=== PATIENT | female | born 2000 | race Hispanic/Latino ===

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

== ENCOUNTER 2020-09-10 09:00 | Emergency (ER) | payer OTHER ==
--- OUTSIDE RECORDS SUMMARY | 2020-09-10 09:02 | XMS REPORT | Summary of Care ---
:2000 Author Organization [facility] Address [address] [place] [address] Care Team Providers Name Role Phone Umm Faith Primary Care Provider Encounter Details Date Type Department Care Team Description 06/12/2020 Orders Only [facility] Doctor Unassigned, No [address] [facility] [place] [address] [address] [place] [address] Allergies No Known Allergiesdocumented as of this encounter (statuses as of 06/12/2020) Medications Medication Sig Dispensed Refills Start Date End Date Status Take by mouth. 0 Acti ve vits62/FA/om3/dha/epa ( GUMMY ORAL) SERTraline (ZOLOFT) 25 Take 1 tablet by 30 tablet 1 04/24/2020 Active mg tabletIndications: mouth daily. 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 Estimated Date of Delivery Comments Yes 07/05/2020 Based on Ultrasound, FHT: 186, Placenta too early to evaluate, MARIELA: WN L documented as of this encounter (statuses as of 06/12/2020) Resolved Problems Problem Noted Date Resolved Date Gonorrhea affecting in first trimester 11/26/2019 02/14/2020 documented as of this encounter (statuses as of 06/12/2020) Immunizations Name Administration Dates Next Due DTAP 04/29/2004 MMR 04/29/2004 Polio (IPV/OPV) 04/29/2004 TDAP 04/24/2020 documented as of this encounter Social History [...] six or more drinks on one occasion? No t asked Estimated Date of Delivery Comments Yes 07/05/2020 Based on Ultrasound, FHT: 186, Placenta too early to evaluate, MARIELA: WN L Sex Assigned at Date Recorded Not on file COVID-19 Exposure Response Date Recorded In the last month, have you been in contact with No / Unsure 06/12/2020 4:36 PM CDT someone who was confirmed or suspected to have Coronavirus / COVID-19? documented as of this encounter Last Filed Vital Signs Not on filedocumented in this encounter Plan of Treatment Health Maintenance Due Date Last Done Comments WELL CARE VISIT: 12-21 YEARS 2012 (yearly) INFLUENZA VACCINE (#1) 2020 HPV VACCINES (1 - 2-dose 11/09/2020 Postpon ed from 2011 series) ( or ) MENINGOCOCCAL B VACCINES (1 11/18/2020 Post poned from 2010 of 2 - Risk Bexsero 2-dose (Preg nant or series) ) VARICELLA VACCINES (1 of 2 - 11/19/2020 Pos tponed from 2001 2-dose childhood series) (Pregna nt or ) Depression Screening 11/26/2020 11/26/2019 CHLAMYDIA SCREENING 12/16/2020 12/17/2019, 11/19/2019 DTaP,Tdap,and Td Vaccines (3 04/24/2030 04/24/2020, - Td) 04/29/2004 MENINGOCOCCAL VACCINE Aged Out No longer eligible based on patient's age to complete this to pic PNEUMOCOCCAL 0-64 YEARS Aged Out No longe r eligible based COMBINED SERIES on patient's age to complete this to pic documented as of this encounter Procedures Procedure Name Priority Date/Time Associated Diagnosis Comme nts ASSIGNMENT OF BENEFITS Routine 06/12/2020 4:37 PM CDT documented in this encounter Results Not on filedocumented in this encounter Insurance Payer Benefit Plan / Subscriber ID Effective Phone Address T e Group Dates [facility] [id number] 2020-Prese [address] Medic aid [facility] [place] [id number] 1 MANAGED MEDICAID [place], [place] [id number] documented as of this encounter Advance Directives Name Relationship Healthcare Agent Communication Relationship Sabrina Pack Health Care Agent
--- OUTSIDE RECORDS SUMMARY | 2020-09-10 09:02 | XMS REPORT | Summary of Care ---
:2000 Author Organization [facility] Address [address] [place] [address] Care Team Providers Name Role Phone Umm Faith Primary Care Provider Reason for Visit Reason Comments LAB WORK Auth/Cert Status Reason Specialty Diagnoses / Procedures Referred By Yen grant To Contact Contact Phlebotomy Diagnoses High-risk in third trimester [facility] Pob Lab Dra lau Procedures GROUP B STREPTOCOCCUS BY PCR Professional Office [address] , [address] [place] [address] Fax: Encounter Details Date Type Department Care Team Description 06/12/2020 Repairer Evaporator Visit [facility] Malgorzata Sorto PA-C [address] [place] [address] [address] [place] [address] High-risk Professional Office 2, [facility] Lab in third trimester Building Phlebotomy Lab Professional Office [address] , [address] [place] [address] Allergies No Known Allergiesdocumented as of this [...] Signs Not on filedocumented in this encounter Nursing Notes Yola Barrett - 06/12/2020 4:15 PM CDT Venipuncture collection performed by clean technique on the right anticubitus. Total of 1 attempts were made. Slight pressure and a bandage/dressing were applied to the site(s). The patient experiencedno complications. The following specimens were processed according to instructions and sent to [facility] laboratories per lab order on : LT BLUE SST RED 1 LAV PPT DK GREEN (LiHep) DK GREEN (SodH) QUEEN DK BLUE (K2) DK BLUE (S) ACD Blood Culture NIPT/NTD documented in this encounter Plan of Treatment Name Type Priority Associated Diagnoses Date/Ti me CBC WITH DIFF LAB Routine High-risk in thir d 06/12/2020 4:50 PM CDT trimester Health Maintenance Due Date Last Done [...] to pic documented as of this encounter Results Not on filedocumented in this encounter Visit Diagnoses Diagnosis High-risk in third trimester documented in this encounter Insurance Payer Benefit Plan / Subscriber ID Effective Phone Address T [facility] [id number] 2020-Prese [address] Medic aid HEALTH CHOICE - HEALTH CHO[place] nt [id number] 1 MANAGED MEDICAID [place], [place] [id number] documented as of this encounter Advance Directives Name Relationship Healthcare Agent Communication Relationship Sabrina Brooke [facility] Health Care Agent
--- OUTSIDE RECORDS SUMMARY | 2020-09-10 09:02 | XMS REPORT | Continuity of Care Document ---
:2000 Author Organization [facility] t Address [address] [place] [address] Care Team Providers Name Role Phone Malgorzata Sorto PA-C Attending Clinician Armida Fuentes MD Attending Clinician Doctor Unassigned, Name Attending Clinician Unavailable 2, Lab Attending Clinician Unavailable Nurse, Women's Health Attending Clinician Unavailable Alfredo GANDHI, Corby Admitting Clinician Problems This patient has no known problems. Allergies, Adverse Reactions, Alerts This patient has no known allergies or adverse reactions. Medications This patient has no known medications. Procedures This patient has no known procedures. Encounters Start End Encounter Admission Attending Care Care Encounter Source Date/Time Date/Time Type Type Clinicians Facility Department ID 2020-09-03 2020-09-03 ALEJANDRA Butler [id number] 10:57:58 11:27:58 ne Visit Malgorzata Dunn [id number] [place] [id number] Lien [phone] [address] 2020-09-01 2020-09-01 Telephone Armida Fuentes NDGRACE [id number] 00:00:00 00:00:00 Corby Dunn [id number] [place] [id number] Lien [phone] [address] 2020-08-17 2020-08-17 TelemALEJANDRA Ward [id number] 15:30:31 16:00:31 ne Visit Malgorzata [place] [id number] [place] [id number] Professio [phone] [address] 2020-07-20 2020-07-20 Routine Macario [facility] [id number] 16:27:25 16:42:25 Malgorzata [place] [id number] Visit [place] [id number] Professio [id number] [address] 2020-07-20 2020-07-20 Orders Doctor ELANA [id number] 00:00:00 00:00:00 Only Unassigned, SHELLI [id number] [facility] [id number] [id number] [id number] 2020-06-24 2020-06-24 Insurance Associate 2, Adc Lab [facility] [id number] 15:57:14 16:12:14 Visit [place] [id number] [place] [id number] Professio [phone] [address] 2020-06-24 2020-06-24 [facility] 1.2.840.114 [id number] 00:00:00 00:00:00 Malgorzata Mona [id number] [place] [id number] Professio [id number] [address] 2020-06-24 2020-06-24 Armida Church [facility] [id number] 00:00:00 00:00:00 Management Cam Mona [id number] [place] [id number] Professio [phone] [address] 2020-06-24 2020-06-24 Orders Doctor ELANA [id number] 00:00:00 00:00:00 Only Unassigned, SHELLI [id number] [facility] 4.2.7.2.686 [id number] [id number] 2020-06-23 2020-06-23 Nurse Nurse, Adc [facility] 1.2.840.114 [id number] 15:02:55 16:16:06 Visit Women's [place] [id number] Health [place] 4.2.7.2.686 Professio [phone] [address] 2020-06-15 2020-06-17 Hospital Armida Fuentes [facility] 1.2.840.114 [id number] 15:16:00 20:45:00 Encounter Cam [place] [id number] [place] 4.2.7.2.686 [place] [id number] 2020-06-15 2020-06-15 Routine Armida Fuentes [facility] [id number] 13:22:52 14:38:56 Cam Mona [id number] Visit [place] [id number] Professio [phone] [address] 2020-06-15 2020-06-15 Insurance Associate 2, [facility] Lab [facility] 1.2.840.114 [id number] 12:10:07 12:25:07 Visit Mona [id number] [place] 4.2.7.2.686 Professio [phone] [address] 2020-06-12 2020-06-12 [facility] [id number] 16:26:50 17:41:09 Malgorzata Dunn [id number] Visit [place] [id number] Professio [phone] [address] 2020-06-12 2020-06-12 Insurance Associate 2, [facility] Lab [facility] [id number] 16:37:37 16:52:37 Visit [place] [id number] [place] 4.2.7.2.686 Professio [phone] [address] 2020-06-12 2020-06-12 Orders Doctor ELANA 1.2.840.114 [id number] 00:00:00 00:00:00 Only Unassigned, SHELLI [id number] [place] [facility] 4.2.7.2.686 [id number] [id number] 2020-05-22 2020-05-28 Telemedici Armida Fuentes [facility] [id number] 14:55:48 13:46:17 ne Visit Corby Dunn [id number] [place] 4.2.7.2.686 Professberenice [phone] [facility] [address] [facility] Results This patient has no known results.
--- OUTSIDE RECORDS SUMMARY | 2020-09-10 09:03 | XMS REPORT | Summary of Care ---
:2000 Author Organization [facility] Address [address] [place] [address] Care Team Providers Name Role Phone Umm Faith Primary Care Provider Reason for Visit Reason Comments ROUTINE VISIT Auth/Cert Status Reason Specialty Diagnoses / Procedures Referred By Molly ontact Referred To Contact Phlebotomy Diagnoses High-risk in third trimester - Primary [facility] Pob Lab Draw Procedures hepatic function Professional Office [address], [address] [place] [address] Phone: Fax: Encounter Details Date Type Department Care Team Description 06/15/2020 Routine [facility] Women's FuentesArmida am, MD High-risk in third trimester ( Primary Dx); Visit Healthcare- [address] [place] [address] 37 weeks g estation of ; Mona CALLAHAN Gestational hypertension, third trimeste r [address] [place] [address], [address] [place] [address] Allergies No Known Allergiesdocumented as of this encounter (statuses as of 06/15/2020) Medications Medication Sig Dispensed Refills Start Date End Date Status Take by mouth. 0 Susp ended vits62/FA/om3/dha/epa ( GUMMY ORAL) SERTraline (ZOLOFT) Take 1 tablet by 30 tablet 1 04/24/2020 Suspended 25 mg mouth daily. 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 Estimated Date of Delivery Comments Yes 07/05/2020 Based on Ultrasound, FHT: 186, Placenta too early to evaluate, MARIELA: WN L documented as of this encounter (statuses as of 06/15/2020) Resolved Problems Problem Noted Date Resolved Date Rash and nonspecific skin eruption 02/26/202006/15 Gonorrhea affecting in first trimester 11/26/2019 02/14/2020 documented as of this encounter (statuses as of 06/15/2020) Immunizations Name Administration Dates Next Due DTAP [...] been in contact with No / Unsure 06/15/2020 1:22 PM CDT someone who was confirmed or suspected to have Coronavirus / COVID-19? documented as of this encounter Last Filed Vital Signs Vital Sign Reading Time Taken Comments Blood Pressure 162/98 06/15/2020 2:11 PM CDT Pulse 85 06/15/2020 2:10 PM CDT Temperature 36.8 C (98.3 F) 06/15/2020 2:10 PM CDT Respiratory Rate 18 06/15/2020 2:10 PM CDT Oxygen Saturation - - Inhaled Oxygen Concentration - - Weight 72.6 kg (160 lb) 06/15/2020 2:10 PM CDT Height 157.5 cm (5' 2") 06/15/2020 2:10 PM CDT Body Mass Index 29.26 06/15/2020 2:10 PM CDT documented in this encounter Progress Notes Armida Fuentes MD - 06/15/2020 1:00 PM CDTSee OB Summary for more details documented in this encounter Miscellaneous Notes OB Summary Note - Armida Fuentes MD - 06/15/2020 1:00 PM CDTAge: 20 year old GA: 37w1d Elevated BP again today, mild range and on repeat severe range. Denies PIH symptoms. To L&D for delivery. documented in this encounter Plan of Treatment Date Type Specialty Care Team Description 06/23/2020 Nurse Visit Obstetrics & Nurse, [facility] Women's Gynecology Health 07/13/2020 Routine Obstetrics & Malgorzata Sorto, Visit Gynecology KENZIE [address] [place] [address] Health Maintenance Due Date Last Done Comments [...] Name Priority Date/Time Associated Diagnosis Comme nts POCT URINALYSIS W/O Routine 06/15/2020 High-risk i n Results for this SPECIFIC GRAVITY third trimester procedure are in the 37 weeks gestation of result s section. documented in this encounter Results POCT URINALYSIS W/O SPECIFIC GRAVITY (06/15/2020) Pathologist Sig nature POCT PH U n/a 5 - 8 mg/dl POCT U LEUK EST n/a Negative - Negative POCT U NIT n/a Negative - Negative POCT U PROT trace Negative - Negative POCT U GLU neg Negative - Negative POCT U KETONE n/a Negative - Negative POCT U BLD n/a Negative - Negative Specimen Urine - URINE, CLEAN CATCH documented in this encounter Visit Diagnoses Diagnosis High-risk in third trimester - Primary 37 weeks gestation of state, incidental Gestational hypertension, third trimeste r documented in this encounter Insurance Payer Benefit Plan / Subscriber ID Effective Phone Address T [facility] [id number] 2020-Prese [address]OX Medic aid HEALTH CHOICE - HEALTH CHOICE nt [id number] 1 MANAGED MEDICAID [place], [place] [id number] documented as of this encounter Advance Directives Name Relationship Healthcare Agent Communication Relationship Sabrina Brooke Father Health Care Agent
--- OUTSIDE RECORDS SUMMARY | 2020-09-10 09:03 | XMS REPORT | Summary of Care ---
:2000 Author Organization [facility] Address [address] [place] [address] Care Team Providers Name Role Phone Umm Faith Primary Care Provider Reason for Visit Reason Comments LAB WORK Auth/Cert Status Reason Specialty Diagnoses / Procedures Referred By Molly ontact Referred To Contact Phlebotomy Diagnoses High-risk in third trimester - Primary [facility] Pob Lab Draw Procedures hepatic function Professional Office Building [address] [place] [address] , [address] [place] [address] Phone: Fax: Encounter Details Date Type Department Care Team Description 06/15/2020 It Support Manager Visit [facility] Malgorzata Sorto PA-C [address] [place] [address] [address] [place] [address] High-risk in third trimester; Professional Office 2, [facility] Lab 36 weeks gestation of Building Phlebotomy Lab Professional Office Building [address] [place] [address] , [address] [place] [address] Allergies No Known Allergiesdocumented as [...] of 06/15/2020) Active Problems Problem Noted Date Depression during [...] in contact with No / Unsure 06/15/2020 12:09 PM CDT someone who was confirmed or suspected to have Coronavirus / COVID-19? documented as of this encounter Last Filed Vital Signs Not on filedocumented in this encounter Nursing Notes Yola Barrett - 06/15/2020 11:45 AM CDT Venipuncture collection performed by clean technique on the right anticubitus. Total of 1 attempts were made. Slight pressure and a bandage/dressing were applied to the site(s). The patient experiencedno complications. The following specimens were processed according to instructions and sent to [facility] laboratories per lab order on : LT BLUE 1 SST RED LAV PPT DK GREEN (LiHep) DK GREEN (SodH) QUEEN DK BLUE (K2) DK BLUE (S) ACD Blood Culture NIPT/NTD documented in this encounter Plan of Treatment Date Type Specialty Care Team Description 06/15/2020 Routine Obstetrics & Fuentes, Armida Tavarez MD Visit Gynecology [address] [place] [address] DR. Aguirre [place] [id number] 15 Health Maintenance Due Date Last Done Comments [...] Visit Diagnoses Diagnosis High-risk in third trimester 36 weeks gestation of state, incidental documented in this encounter Insurance Payer Benefit Plan / Subscriber ID Effective Phone Address T [facility] [id number] 2020-Prese [address] BOX Medic aid HEALTH CHOICE - HEALTH CHOICE nt [id number] 1 MANAGED MEDICAID [place] [phone] documented as of this encounter Advance Directives Name Relationship Healthcare Agent Communication Relationship Sabrina Brooke Father Health Care Agent
--- OUTSIDE RECORDS SUMMARY | 2020-09-10 09:03 | XMS REPORT | Summary of Care ---
:2000 Author Organization [facility] Address [address] [place] [id number] Care Team Providers Name Role Phone Umm Faith Primary Care Provider Reason for Visit Reason Comments ROUTINE VISIT Auth/Cert Status Reason Specialty Diagnoses / Procedures Referred By Yen naiduerred To Contact Contact Phlebotomy Diagnoses High-risk in third trimester Adc Pob Lab Dra lau Procedures GROUP B STREPTOCOCCUS BY PCR Professional Office [address] , [address] [place] [address] Fax: Encounter Details Date Type Department Care Team Description 06/12/2020 Routine [facility] Women's Malgorzata Sorto, High-risk in third trimester (Primary Dx); Visit Healthcare- PA-C 36 weeks gestation of [address], [address] [facility] [address] [place] [id number] Allergies No Known Allergiesdocumented as of [...] in contact with No / Unsure 06/12/2020 5:12 PM CDT someone who was confirmed or suspected to have Coronavirus / COVID-19? documented as of this encounter Last Filed Vital Signs Vital Sign Reading Time Taken Comments Blood Pressure 146/91 06/12/2020 5:32 PM CDT Pulse 86 06/12/2020 5:32 PM CDT Temperature 36.8 C (98.3 F) 06/12/2020 5:13 PM CDT Respiratory Rate 16 06/12/2020 5:13 PM CDT Oxygen Saturation - - Inhaled Oxygen Concentration - - Weight 72.1 kg (159 lb) 06/12/2020 5:13 PM CDT Height 157.5 cm (5' 2") 06/12/2020 5:13 PM CDT Body Mass Index 29.08 06/12/2020 5:13 PM CDT documented in this encounter Patient Instructions Patient InstructionsHeike De La Torre, MA - 06/12/2020 4:30 PM CDT Patient Education Kick Counts Its normal to worry about your babys health. One way you can knowyour babys doing well isto record the babys movements once a day. This is called a kick count.Remember to take your kick count records to all your appointments with your healthcare provider. How to count kicks Time how long it takes you to feel 10 kicks, flutters, swishes, or rolls. Ideally, you want to feel at least 10 movements within 2 hours. You will likely feel 10 movements in less time than that. Starting at 28 weeks, count your baby's movements daily. Follow your healthcare provider's instructions for kick counting. Here are tips for counting kicks: Choose a time when the baby is active, such as after a meal. Sit comfortably or lie on your side. The first time the baby moves,write downthe time. Count each movement until the baby has [id number]. This can take from 20 minutes to 2hours. If you have not felt 10 kicks by the end of the second hour, wait a few hours. Then try again. Try to do it at the same time each day. When to call your healthcare provider Call your healthcare providerright awayif: You do a couple sets of kick counts during the day and your baby moves fewer than 10times [id number] Your baby moves much less often than on thedays before. You have not felt your baby move all day. [employer] last reviewed this educational content on 09/15/201719994375-0458 The [employer]. [address] [place] [address], [place] [address]. All rights reserved. This information is not intended as a substitute for professional medical care. Always follow your healthcare professional's instructions. Patient Education Recognizing Labor The beginning of labor is the beginning of . Youll start to feel strong contractions. Thats when the muscles of your uterus tighten up to help push your baby out during . Yes, labor has probably started Signs of labor include: Your contractions are getting stronger and more painful instead of weaker. Youll probably feelthem throughout your whole uterus. Your contractions are regular. This means that you feel them about every 5 to 10 minutes. And they are getting closer together. You have pink-colored or blood-streaked fluid from your vagina. You feel that the baby has "dropped" lower in your pelvis Your water breaks. It may be a gush or a slow trickle of clear fluid from your vagina. No, its probably not real labor Signs of false labor include: Your contractions arent regular or strong. You feel the contractions only in your lower uterus. Your contractions go away when you walk or change position. Your contractions go away after drinking fluids. When to call your healthcare provider Call your healthcare provider or clinic right away if you notice any of these signs: Fluid from your vagina, with or without contractions. Bleeding heavy enough that you need a sanitary pad. You dont feel your baby moving as much as before. NOTE: Contractions are timed by both of these measures: The length of each contraction from its start to its finish. How far apart the contractions arethe time between the start of one contraction and the start of the next contraction. [employer] last reviewed this educational content on 07/16/201719993484-6256 The [employer]. [address] [place] [address]. All rights reserved. This information is not intended as a substitute for professional medical care. Always follow your healthcare professional's instructions. Patient Education False Labor If your is at 37 weeks or longer and you are having contractions that are not true labor, you are having false labor. This means that it is not time yet to give to your baby. True labor contractions can start unevenly but soon take on a regular pattern. As time goes on, the contractions will get stronger. Also, the intervals between the contractions will get shorter. Even at the onset, these contractions last at least 30 seconds and may increase to a minute.True labor contractions often start in the back and then move to the front. False labor contractions can be strong, frequent, and painful, but there is no regular pattern. The intensity can vary from strong to mild to strong again.False labor contractions are most often feltin the front.While true labor contractions dont stop no matter what you are doing, false labor c ontractions may stop on their ownor when you rest or move around. False labor contractions might make you feel anxious or lose sleep. However, they dont mean that you are sick or that anything is wrong with your baby. You dont need to take any medicine for false labor. Sometimes, it may be too hard to tell false labor from true labor. In such cases, you may need to have a vaginal exam. This allows your healthcare provider to check for changes in the cervix that only occur with true labor. Home care It may help to drink plenty of water and take warm baths. Do what you can ahead of time to prepare for giving so youll have less to worry about later. Keep a record of your contractions. Write down what time each one starts and how long it lasts. Astopwatch is helpful. Look for the pattern of regularly spaced out contractions with a gradual increase in the time each one lasts. Dont be embarrassed about going to the hospital with a false alarm. Think of it as good practice for the real thing. Follow-up care Follow up with your healthcare provider, or as advised. If you are very worried, confused, cant eat or sleep, or have questions about your health or ,schedule an appointment with your provider. When to seek medical advice Call your healthcare provider right away if any of these occur: You are fewer than 37 weeks along in your and youre having contractions. You have contractions that are regular, getting longer, stronger, and closer together. Your water breaks. You have vaginal bleeding. You feel a decrease in your babys movement or any other unusual changes. Youre not sure if you are having false or true labor. [employer] last reviewed this educational content on 03/16/201819990677-2295 The [employer]. [address] [place] [address], [place] [address]. All rights reserved. This information is not intended as a substitute for professional medical care. Always follow your healthcare professional's instructions. Patient Education Premature Labor Premature labor ( labor) is when symptoms of labor occur before 37 weeks of . (This is 3 weeks before your due date.) Premature labor can lead to premature delivery. This means giving to your baby early. Babies need at least 37 weeks of for all the organs to develop normally. The earlier the delivery, the greater the risks to the baby. In most cases, the cause of premature labor is unknown. But certain factors may make the problem more likely. These include: History of premature labor with other pregnancies Smoking Alcohol or substance abuse Low pre- weight or weight gain during Short time period between pregnancies Being with twins, triplets, or more History of certain types of surgery on the cervix or uterus Having a short cervix Certain infections There are a number of other risk factors. Ask your healthcare provider to help you understand the risk factors specific to your case. Then find out what you can do to control or reduce them. Contractions are one of the main signs of premature labor. A contraction is different from cramping.It may feel painful and the belly (abdomen) may get hard. It can last from a few seconds to a few minutes. Some women may feel only a sense of pressure in the belly, thighs, rectum, or vagina. Some mayfeel only the hardening of the uterus without pain or pressure. Or there may be a constant pain in the lower back, which spreads forward toward the belly.Premature labor is often treated with medicines.A hospital stay may be needed. If labor doesn't progress and you and your baby are both healthy, you may be discharged to continue care at home. Home care Ask your provider any questions you have. Be certain you understand how to care for yourself at home. Also follow all recommendations given by your healthcare providers. Learn the signs of premature labor.Watch for these signs when you get home. Limit or restrict activities as advised. This may include stopping certain physical activities and cutting back hours at work. Avoid doing strenuous work as directed by your provider.Ask family and friends for help with tasks and support at home, if needed. Dont smoke, drink alcohol, or use other harmful substances. Take steps to reduce stress. Report any unusual symptoms to your provider. Follow-up care Follow up with your healthcare provider, or as directed.Weekly visits with your provider may be needed. When to seek medical advice Call your healthcare provider right away if any of these occur: Regular or frequent contractions, whether they are painful or not Pressure in the pelvis Pressure in the lower belly or mild cramping in your belly with or without diarrhea Constant low, dull backache Gush or slow leaking of water from your vagina Change in vaginal discharge (watery, mucus, or bloody) Any vaginal bleeding Decreased movement of your baby [employer] last reviewed this educational content on 03/16/201819996188-0302 The [employer]. [address] [place] [address], [place] [address]. All rights reserved. This information is not intended as a substitute for professional medical care. Always follow your healthcare professional's instructions. documented in this encounter Progress Notes Malgorzata Sorto PA-C - 06/12/2020 4:30 PM CDT Chief complaint: Chief Complaint Patient presents with ROUTINE VISIT HPI Renita Brooke is a 20 year old female @ 36w5d coming in for PN visit. Denies contractions,vaginal bleeding, LOF, dysuria, or PIH symptoms. + active FM. Histories OB History Para Term AB Living 1 SAB TAB Ectopic Multiple Live Births # Outcome Date GA Lbr Kris/2nd Weight Sex Delivery Anes PTL Lv 1 Current Past Medical History: Diagnosis Date Depression during in third trimester 05/22/2020 Gonorrhea affecting in first trimester 11/26/2019 Family History Problem Relation Age of Onset [...] PGMo Alive PGFa Alive NoFHx (Not Specified) No past surgical history on file. Social History Socioeconomic History Marital status: Single Spouse name: Not on file Number of children: Not on file Years of education: Not on file Highest education level: Not on file Occupational History Not on file Social Needs Financial resource strain: Not on file Food insecurity Worry: Not on file Inability: Not on file Transportation needs Medical: Not on file Non-medical: Not on file Tobacco Use Smoking status: Never Smoker Smokeless tobacco: Never Used Substance and Sexual Activity Alcohol use: Never Frequency: Never Drug use: Yes Types: Marijuana Comment: last THC use two weeks ago ; discouraged use Sexual activity: Yes Partners: Male control/protection: None Comment: last sexual intercourse 10/07/2019 Lifestyle Physical activity Days per week: Not on file Minutes per session: Not on file Stress: Not on file Relationships Social connections Talks on phone: Not on file Gets together: Not on file Attends spiritism service: Not on file Active member of club or organization: Not on file Attends meetings of clubs or organizations: Not on file Relationship status: Not on file Intimate partner violence Fear of current or ex partner: Not on file Emotionally abused: Not on file Physically abused: Not on file Forced sexual activity: Not on file Other Topics Concern Not on file Social History Narrative Patient lives with parents. Pt denies current or past physical, sexual or emotional abuse. Moravian preference: Hindu No cats in the home. Social History Substance and Sexual Activity Sexual Activity Yes Partners: Male control/protection: None Comment: last sexual intercourse 10/07/2019 Labs none Radiology none Allergies Renita has No Known Allergies. Medications Renita has a current medication list which includes the following prescription(s): ferrous sulfate,sertraline, and vits62/fa/om3/dha/epa. Review of Systems Constitutional: Negative for appetite change, fatigue and fever. HENT: Negative for rhinorrhea and sore throat. Eyes: Negative for pain and itching. Respiratory: Negative for cough, chest tightness and shortness of breath. Breasts: Negative for discharge, mass and pain. Cardiovascular: Negative for chest pain, palpitations and leg swelling. Gastrointestinal: Negative for abdominal pain, constipation, diarrhea and nausea. Genitourinary: Negative for bladder incontinence, dysuria, vaginal discharge, difficulty urinating, vaginal pain and pelvic pain. Musculoskeletal: Negative for gait problem and myalgias. Skin: Negative for rash. Neurological: Negative for dizziness and headaches. Psychiatric/Behavioral: Negative for suicidal ideas. The patient is not nervous/anxious. Endocrine: Negative for hair loss. LMP 09/19/2019 (Exact Date) Pregravid BMI: 24.32 Physical Exam Vitals reviewed. Constitutional: She is oriented to person, place, and time. She appears well- developed and well-nourished. Neck: No mass. No thyromegaly palpated. No neck adenopathy. Cardiovascular: Regular rate and rhythm. Pulmonary/Chest: Normal inspiratory effort. Abdominal: Abdomen is soft. No tenderness present. No hernia palpated or inspected. Neuro/Psychiatric: She has a normal mood and affect. She is oriented to person, place, and time. Skin: Skin normal. Lymphadenopathy: No neck adenopathy present. No axillary adenopathy present. No inguinal adenopathy present. Assessment/Plan SEE OB SUMMARY Return to clinic in 1 weeks. Discussed treatment options. Reviewed patient instructions and provided printed copy. Activity restrictions: As tolerated This visit did not involve counseling and coordination that comprised more than 50% of the visit time. Malgorzata Sorto PA-C 06/12/2020 4:33 PM documented in this encounter Miscellaneous Notes OB Summary Note - Malgorzata Sorto PA-C - 06/12/2020 4:30 PM CDTAge: 20 year old GA: 36w5d Doing well, no complaints. Elevated BP today without hx of HTN. UA showed 2+protein. Denies PIH sx. Repeat BP was 146/91. Offered patient to go to L&D for BP check. Patient declines at this time. Patient reports no sx. Strong PIH precautions given. Hx of anxiety/depression On Zoloft EPDS 22 Denies SI/HI. Patient reports received information for [employer] but has not scheduled appointment yet. Daily kick counts. FOLLOW-UP in on Monday for BP check and labs and PN visit. 36 week talk: 1. Go to Labor and Delivery when your contractions are 5-7 minutes apart and you have been able to time them for an hour. If you live more than 30 minutes from the hospital, then go when they are 10 minutes apart and you have been able to time them for an hour. 2. BUT, there are 4 reasons to go to Labor and Delivery REGARDLESS of what else is happening, whether you are micah or not: 1. If your water breaks - - - it may be a gush or a constant trickle. If you are not sure, always come in to be checked. 2. Bleeding like your period. 3. If your baby's movements are less than 10 in an hour. If you are concerned this might be the case, drink a tall glass of cold fluids, lay down on your side on the couch or your bed and see how long it takes to note 10 movements - if less than 10, this needs to be evaluated immediately. 4. Contractions or Pain that is continuous. Normal labor contractions last only 45 seconds - 1 minute. Cephalic presentation GC/CT and GBS obtained, CBC ordered Zika precautions reviewed Contraception: OCPs documented in this encounter Plan of Treatment Date Type Specialty Care Team Description 06/15/2020 Carpet Layer Helper Visit Phlebotomy 2, Adc Lab 06/15/2020 Routine Visit Obstetrics & Fuentes, Armida Tavarez MD Gynecology [address] [place] [address] DR. Aguirre [place] [id number] [phone] Name Type Priority Associated Diagnoses Order S chedule GC & CHLAMYDIA AMPLIFIED LAB Routine High-risk pregna ncy in Expected: 06/12/2020, ASSAY third trimester Expires: 06/12/2021 36 weeks gestation of GROUP B STREPTOCOCCUS BY LAB Routine High-risk pregna ncy in Expected: 06/12/2020, PCR third trimester Expires: 06/12/2021 36 weeks gestation of HEPATIC FUNCTION PANEL LAB Routine High-risk pregnanc y in Expected: 06/12/2020, ([id number]) (ALB,T.PRO,BILI third tr imester Expires: 06/12/2021 T,BU/BC,ALT,AST,ALK PHOS) 36 weeks gestat ion of LACTATE DEHYDROGENASE LAB Routine High-risk in Expected: 06/12/2020, third trimester Expires: 06/12/2021 36 weeks gestation of URIC ACID LAB Routine High-risk in Expec antonio: 06/12/2020, third trimester Expires: 06/12/2021 36 weeks gestation of Health Maintenance Due Date Last Done Comments [...] encounter Procedures Procedure Name Priority Date/Time Associated Comments Diagnosis >14 WEEKS US Routine 06/12/2020 5:28 PM High-risk R esults for this LIMITED CDT in third trime ster procedure are in 36 weeks gestation the resul ts of section. POCT URINALYSIS W/O Routine 06/12/2020 5:16 PM High-risk preg malgorzata Results for this SPECIFIC GRAVITY CDT in third trimes ter procedure are in 36 weeks gestation the resul ts of section. documented in this encounter Results >14 WEEKS US LIMITED (06/12/2020 5:28 PM CDT) Specimen Narrative Performed At This result has an attachment that is no t available. Cephalic presentation PACS Performing Organization Address City/State/Zipcode Phone Number PACS POCT URINALYSIS W/O SPECIFIC GRAVITY (06/12/2020 5:16 PM CDT) Pathologist Sig nature POCT PH U n/a 5 - 8 mg/dl POCT U LEUK EST n/a Negative - Negative POCT U NIT n/a Negative - Negative POCT U PROT 2+ Negative - Negative POCT U GLU neg Negative - Negative POCT U KETONE n/a Negative - Negative POCT U BLD n/a Negative - Negative Specimen Urine - URINE, CLEAN CATCH CBC WITH DIFF (06/12/2020 4:50 PM CDT) Pathologist Sig nature WBC 6.96 4.30 - 11.10 [facility] 10*3/L [facility] RBC 3.53 (L) 3.93 - 5.25 [facility] 10*6/L [facility] HGB 10.0 (L) 11.6 - 15.0 [facility] g/dL [facility] HCT 30.9 (L) 35.7 - 45.2 % [facility] MCV 87.5 80.6 - 95.5 fL [facility] MCH 28.3 25.9 - 32.8 pg [facility] MCHC 32.4 31.6 - 35.1 [facility] g/dL [facility] RDW-SD 46.6 39.0 - 49.9 fL [facility] RDW-CV 14.8 12.0 - 15.5 % [facility] PLT 233 166 - 358 [facility] 10*3/L [facility] MPV 12.8 9.5 - 12.9 fL [facility] NRBC/100 WBC 0.0 0.0 - 10.0 /100 [facility] WBCs [facility] NRBC x10^3 <0.01 10*3/L [facility] GRAN MAT (NEUT) % 73.9 % [facility] IMM GRAN % 0.10 % [facility] LYMPH % 17.1 % [facility] MONO % 7.2 % [facility] EOS % 1.4 % [facility] BASO % 0.3 % [facility] GRAN MAT x10^3(ANC) 5.14 1.88 - 7.09 [facility] 10*3/uL [facility]ITAL [facility] IMM GRAN x10^3 <0.03 0.00 - 0.06 [facility] 10*3/uL [facility] LYMPH x10^3 1.19 (L) 1.32 - 3.29 [facility] 10*3/uL [facility] MONO x10^3 0.50 0.33 - 0.92 [facility] 10*3/uL [facility]ITAL [facility] EOS x10^3 0.10 0.03 - 0.39 [facility] 10*3/uL [facility] BASO x10^3 <0.03 0.01 - 0.07 [facility] 10*3/uL HOSPITAL [facility] Specimen Blood Performing Organization Address City/State/Zipcode Phone Number [facility] CLIA: [id number] [place] [address] documented in this encounter Visit Diagnoses Diagnosis High-risk in third trimester - Primary 36 weeks gestation of state, incidental documented in this encounter Insurance Payer Benefit Plan / Subscriber ID Effective Phone Address T ype Group Dates [facility] [id number] 2020-Prese [address] Medic aid HEALTH CHOICE - HEALTH [place] [id number] MANAGED MEDICAID [place], [place] [phone] documented as of this encounter Advance Directives Name Relationship Healthcare Agent Communication Relationship Sabrina Brooke Father Health Care Agent
--- OUTSIDE RECORDS SUMMARY | 2020-09-10 09:04 | XMS REPORT | Summary of Care ---
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 DR. Calixto [address] [facility] [address] [place], [place] [address] [place] [address] Phone: Fax: Encounter Details Date Type Department Care Team Description 06/23/2020 Nurse Visit [facility] Armida Fuentes MD [address] [place] [address] [address] [place], [place] [id number] Elevated pulse rate [facility] Nurse, [facility] (Primary Dx) [address] [facility], [address] [place] [address] Allergies No Known Allergiesdocumented as of this encounter (statuses as of 06/23/2020) Medications Medication Sig Dispensed Refills Start Date End Date Status vitamin w/FA Take 1 tablet by 100 tablet 3 06/17/2020 Active tabletIndications: mouth daily. 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 in third Take with food or trimester, Depression milk. during in third trimester, 37 weeks gestation of , Anemia, antepartum, third trimester, Severe pre-eclampsia in third trimester, Liveborn , of giang , born in hospital by vaginal delivery NIFEdipine ER 30 mg Take 1 tablet by 30 tablet 0 06/17/2020 Active tabletIndications: mouth every 24 Maternal varicella, (twenty-four) non-immune, High-risk hours. 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 documented as of this encounter (statuses as of 06/23/2020) Resolved Problems Problem Noted Date Resolved Date Rash and nonspecific skin eruption 02/26/202006/15 Gonorrhea affecting in first trimester 11/26/2019 02/14/2020 documented as of this encounter (statuses as of 06/23/2020) Immunizations Name Administration Dates Next Due DTAP [...] drinks on one occasion? No t asked Sex Assigned at Date Recorded Not on file COVID-19 Exposure Response Date Recorded In the last month, have you been in contact with No / Unsure 06/23/2020 3:02 PM CDT someone who was confirmed or suspected to have Coronavirus / COVID-19? documented as of this encounter Last Filed Vital Signs Vital Sign Reading Time Taken Comments Blood Pressure 128/78 06/23/2020 3:34 PM CDT Pulse 115 06/23/2020 3:34 PM CDT Temperature 36.8 C (98.2 F) 06/23/2020 3:34 PM CDT Respiratory Rate 18 06/23/2020 3:34 PM CDT Oxygen Saturation - - Inhaled Oxygen Concentration - - Weight 63.4 kg (139 lb 12.8 oz) 06/23/2020 3:34 PM CDT Height 157.5 cm (5' 2") 06/23/2020 3:34 PM CDT Body Mass Index 25.57 06/23/2020 3:34 PM CDT documented in this encounter Progress Notes Perla Oliveros RN - 06/23/2020 3:00 PM CDTPatient presents for post BP check. BP WNL, however, pulse is elevated at 117, taken with machine and manually. Patient is asymptomatic. Report given to Dr. Fuentes, order received to do 7 dip urineto check for ketones. Urine results reported to Dr. Fuentes, RN educated patient about symptoms to watchfor and advised patient to go to ER for saturating a maxi pad within an hour for 2 hours in a row, passing golf ball size blood clots, dizziness, shortness of breath, and fatigue. RN educated patient on importance of taking iron supplements 2 times daily and increasing iron rich foods and hydration inher diet. Patient instructed to f/u in clinic in 2 weeks. Patient verbalized understanding and agrees to plan of care. Perla Oliveros RN 06/23/2020 4:18 PM documented in this encounter Plan of Treatment Date Type Specialty Care Team Description 07/13/2020 Routine Obstetrics & Malgorzata Sorto, Visit Gynecology KENZIE [address] [place] [id number] Health Maintenance Due Date Last Done [...] ) Depression Screening 11/26/2020 11/26/2019 CHLAMYDIA SCREENING 06/12/2021 06/12/2020, 12/17/2019, 11/19/2019 DTaP,Tdap,and Td Vaccines (3 04/24/2030 [...] Diagnosis Comme nts POCT URINALYSIS W/O Routine 06/23/2020 Elevated pulse rate R esults for this SPECIFIC GRAVITY procedure a re in the results section . documented in this encounter Results POCT URINALYSIS W/O SPECIFIC GRAVITY (06/23/2020) Pathologist Sig nature POCT PH U 6 5 - 8 mg/dl POCT U LEUK EST 3+ Negative - Negative POCT U NIT neg Negative - Negative POCT U PROT 3+ Negative - Negative POCT U GLU neg Negative - Negative POCT U KETONE neg Negative - Negative POCT U BLD 3+ Negative - Negative Specimen Urine - URINE, CLEAN CATCH documented in this encounter Visit Diagnoses Diagnosis Elevated pulse rate - Primary documented in this encounter Insurance Payer Benefit Plan / Subscriber ID Effective Phone Address [employer] [facility] [id number] 2020-Prese [address] Medic aid HEALTH CHOICE - [place] [id number] 1 MANAGED MEDICAID [place], [place] [id number] documented as of this encounter Advance Directives Name Relationship Healthcare Agent Communication Relationship Sabrina Brooke Father Health Care Agent
--- OUTSIDE RECORDS SUMMARY | 2020-09-10 09:04 | XMS REPORT | Summary of Care ---
:2000 Author Organization [facility] Address [address] [place] [id number] Care Team Providers Name Role Phone Umm Faith Primary Care Provider Reason for Referral (Routine) Status Reason Specialty Diagnoses / Referred By Referred To Procedures Contact Contact New Request Diagnoses Maternal varicella, non-immune High-risk in third trimester Depression during in third trimester 37 weeks gestation of Anemia, antepartum, third trimester Severe pre-eclampsia in third trimester Kwame Medina MD Lam, Vien Cam, MD Liveborn infant, of giang , born in hospital by vaginal delivery [address] [place] [address] Procedures DISCHARGE FOLLOW-UP: PRIVATE PHYSICIAN DR. JOSE [address]ga [address] [place], [place] [address] [place] [address] Phone: Fax: Reason for Visit Auth/Cert Status Reason Specialty Diagnoses / Procedures Referred By Molly ontact Referred To Contact Obstetrics Diagnoses Induction [facility] Labor And Delivery [address] [place] [address] [phone] Phone: Fax: Encounter Details Date Type Department Care Team Description 06/15/2020 - Hospital Encounter [facility] Labor and Kwame Medina Livebo rn , of 06/17/2020 Delivery Unit MD giang [address] [place] [address] , [facility] [place] [address] [address] delivery [phone] [place], [place] [id number] Allergies No Known Allergiesdocumented as of this encounter (statuses as of 06/17/2020) Medications Medication Sig Dispensed Refills Start Date End Date Status vitamin Take 1 tablet 100 tablet 3 06/17/2020 Active w/FA by mouth tabletIndications daily. : Maternal varicella, non-immune, High-risk 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, 37 weeks gestation of , Anemia, antepartum, third trimester, Severe pre-eclampsia in third trimester, Liveborn , of giang , born in hospital by vaginal delivery docusate calcium Take 1 capsule 60 capsule 1 06/17/2020 Active 240 mg by mouth once capsuleIndication daily as s: Maternal needed for varicella, Constipation. non-immune, High-risk 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, 37 weeks gestation of , Anemia, antepartum, third trimester, Severe pre-eclampsia in third trimester, Liveborn , of giang , born in hospital by vaginal delivery ferrous sulfate Take 1 tablet 60 tablet 2 06/17/2020 Active 325 mg (65 mg by mouth 2 iron) (two) times tabletIndications daily. : Maternal varicella, non-immune, High-risk 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, 37 weeks gestation of , Anemia, antepartum, third trimester, Severe pre-eclampsia in third trimester, Liveborn infant, of giang , born in hospital by vaginal delivery ibuprofen 600 mg Take 1 tablet 30 tablet 1 06/17/2020 Active tabletIndications by mouth every : Maternal 6 (six) hours varicella, as needed non-immune, (Pain). Take High-risk with food or in milk. third trimester, Depression during in third trimester, 37 weeks gestation of , Anemia, antepartum, third trimester, Severe pre-eclampsia in third trimester, Liveborn infant, of giang , born in hospital by vaginal delivery NIFEdipine ER 30 Take 1 tablet 30 tablet 0 06/17/2020 Active mg by mouth every tabletIndications 24 : Maternal (twenty-four) varicella, hours. non-immune, High-risk 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, 37 weeks gestation of , Anemia, antepartum, third trimester, Severe pre-eclampsia in third trimester, Liveborn , of giang , born in hospital by vaginal delivery Take by 0 06/17/2020 Discontin ued vits62/FA/om3/dha mouth. /epa ( GUMMY ORAL) SERTraline Take 1 tablet 30 tablet 1 04/24/2020 06/17/2020 Dis continued (ZOLOFT) 25 mg by mouth tabletIndications daily. : Depression during in third trimester ferrous sulfate Take 1 tablet 90 tablet 0 05/11/2020 0 Discontinued (IRON, FERROUS by mouth SULFATE,) 325 mg daily. (65 mg iron) tabletIndications : Anemia of mother in , antepartum documented as of this encounter (statuses as of 06/17/2020) Active Problems Problem Noted Date Liveborn infant, of giang , born in [facility] by vaginal 06/16/2020 delivery 37 weeks gestation of 06/15/2020 Anemia, antepartum, third trimester 06/15/2020 Severe pre-eclampsia in third trimester 06/15/2020 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 Comments Yes documented as of this encounter (statuses as of 06/17/2020) Resolved Problems Problem Noted Date Resolved Date Rash and nonspecific skin eruption 02/26/202006/15 Gonorrhea affecting in first trimester 11/26/2019 02/14/2020 documented as of this encounter (statuses as of 06/17/2020) Immunizations Name Administration Dates Next Due DTAP [...] drinks on one occasion? No t asked Comments Yes Sex Assigned at Date Recorded Not on file COVID-19 Exposure Response Date Recorded In the last month, have you been in contact with No / Unsure 06/15/2020 1:22 PM CDT someone who was confirmed or suspected to have Coronavirus / COVID-19? documented as of this encounter Last Filed Vital Signs Vital Sign Reading Time Taken Comments Blood Pressure 142/95 06/17/2020 4:39 PM CDT Pulse 115 06/17/2020 4:39 PM CDT Temperature 37.1 C (98.8 F) 06/17/2020 4:39 PM CDT Respiratory Rate 18 06/17/2020 4:39 PM CDT Oxygen Saturation 100% 06/17/2020 4:39 PM CDT Inhaled Oxygen Concentration - - Weight 72.6 kg (160 lb) 06/15/2020 3:40 PM CDT Height 157.5 cm (5' 2") 06/15/2020 3:40 PM CDT Body Mass Index 29.26 06/15/2020 3:40 PM CDT documented in this encounter Discharge Instructions Carmelita Hammonds RN - 06/17/2020Multidisciplinary Discharge Instructions (may include diet, dressing changes, activity limits, written materials given to patient: DIET: Eat a well balanced diet; drink 6-8 glasses of fluids daily; eat fruits and green, leafy vegetables. DAILY ACTIVITIES: 1. As much as you feel able to do. Rest when you are tired. 2. Limitations: Specify; No heavy lifting other than your baby for 4 weeks if you had surgery. TREATMENT AT HOME 1. Use a well-fitting bra to prevent breast engorgement 2. Resume intercourse as instructed by your physician. 3. Do not use douches or tampons for four weeks. 4. To help prevent urinary tract infection; after each urination and bowel movement, wipe and dry from front to back and change bailey pad. 5. Follow discharge instructions regarding baby care. 6. Follow family planning instructions. IMMEDIATE TREATMENT - Call Clinic or Your Physician 1. Increase in pain and tenderness of uterus. 2. Increased vaginal bleeding (bright red blood which soaks 2 pads in 1 hour or pass large clots). 3. Foul smelling vaginal discharge. 4. Burning in the tube that empties the urine from the bladder. 5. Painful breast engorgement or cracked nipples. 6. Pain, discharges, or gaping incision. 7. Temperature greater than 38.0C or 100.4F 8. Pain and tenderness of calf or thigh muscles. 9. No bowel movements in 4 days. For Problems or Questions Call: OB Clinic Family Planning [phone] or Emergency: Go to the closest emergency room or call 911 {DC INSTRUCTIONS L&D:[id number]} For worsening symptoms/changing condition/problems or questions call: Non-emergency/urgent: Access Center at or [facility] [phone] [facility] Labor and Delivery: Emergency: Go to the closest emergency room or call 911 For Patients ? All patients should call the [facility] at to determine the best way to receive caretelevisit (preferred when medically appropriate) or in-person appointment at the most appropriate location. ? Current visitation guidelines are available online. Resources ? [facility] for clinical appointments and 08/05 Nurse triage line: . ? [email or web address] Protecting Everyones Health Reminders for minimizing your risk of catching or spreading COVID-19: ? Avoid groups of 10 or more people and avoid people who are ill with respiratory symptoms. ? Thoroughly wash your hands frequently, for at least 20 seconds with soap and water. Any kind of soap will work. ? Use hand sprinkler fitter apprentice with minimum 60% alcohol content if soap and water are not available. ? Cough/sneeze into a tissue and dispose of it right away. If you do not have a tissue, cough/sneezeinto your elbow. ? Avoid touching your eyes, nose or mouthespecially with unwashed hands. ? Use disinfectant wipes or alley cleaner on frequently touched or shared surfaces. ? Do not share dishes, cups/glasses, utensils or towels. ? STAY HOME IF YOU ARE SICK. Guiding Principles ? Protecting patients, students, employees, volunteers and the community ? Preventing exposures through social distancing and limiting non-clinical activity on our campuses ? Preserving access to the outstanding care in our hospitals and clinics ? Sustaining our financial stability for the long-term success of our mission. Thank you for your help in planning, preparing and responding to the COVID-19 public health threat. Sent by the Office of [employer], on behalf of President ad interim Dr. Rocco Laureano and the [facility] leadership. AttachmentsThe following attachments cannot be sent through Care Everywhere. Vaginal , After a ([place]), Breast Care After ([place]) Depression, Understanding ([place])documented in this encounter Progress Notes Lucia Avila - 06/17/2020 9:05 AM CDTRoutine L&D rounding visit with new mom; new baby prayer card was offered to and accepted by patient; she stated no other support needed/wanted at this time; follow-up pastoral care support is available if needed/wanted. Kwame Slater MD - 06/17/2020 6:54 AM CDT PROGRESS NOTE Subjective: Patient is a 20 year old, S/P , post day 2. She complains of nothing. Morejon in place. Has not ambulated yet. Objective: Vital Signs: BP: (142-161)/(82-105) Temp: [36.7 C (98.1 F)-37.1 C (98.7 F)] Temp source: Oral (06/17 0440) Pulse: [94-137] Resp: [17-18] SpO2: [98 %-100 %] Height: -- Weight: -- BMI (calculated): -- Physical Exam: General: NAd Lungs: clear to auscultation bilaterally Cardiology: regular rate and rhythm Abdomen: Soft, NTTP, fundus firm and below umbilicus : Minimal lochia, left labial edematous, morejon in placed Extremities: no clubbing, cyanosis, or edema Current Medications: Current Facility-Administered Medications Medication Dose Route Frequency Last Rate Last Dose ferrous sulfate tablet 325 mg 325 mg Oral BID NIFEdipine ER (AFEDITAB CR) tablet 30 mg 30 mg Oral Q24H ABX acetaminophen (TYLENOL) tablet 650 mg 650 mg Oral Q6HPRN benzocaine-menthol (DERMOPLAST) 20-0.5 % topical spray Topical PRN diphenhydrAMINE (BENADRYL) tablet 25 mg 25 mg Oral Q6HPRN diphenhydrAMINE-0.9 % sod.chlr (BENADRYL) 25 mg/50 mL piggyback 25 mg 25 mg IV Piggyback Q6HPRN docusate calcium (SURFAK) capsule 240 mg 240 mg Oral QDAILYPRN HYDROcodone-acetaminophen (NORCO 5) 5-325 mg tablet 1 tablet 1 tablet Oral Q6HPRN 1 tablet at06/16/202153 ibuprofen (IBU) tablet 600 mg 600 mg Oral Q6HPRN 600 mg at 06/16/202058 LR 1000 mL + oxytocin 20 units IV Solution IV Infusion CONTINUOUS 125 mL/hr at 06/17/20 0631 magnesium hydroxide (MILK OF MAGNESIA) 400 mg/5 mL suspension 30 mL 30 mL Oral QDAILYPRN NaCl 0.9% (NS) IV Line Priming and Flushing Fluid Only 250 mL 250 mL IV Infusion SEE-INSTRUCTIONS ondansetron (ZOFRAN (PF)) injection 4 mg 4 mg Slow IV Push Q8HPRN oxytocin (PITOCIN) injection 20 Units 20 Units IV Piggyback CONTINUOUS 20 Units at 06/16/20 1050 vitamin w/FA (PRENATABS RX) tablet 1 tablet 1 tablet Oral DAILY 1 tablet at 06/16/200907 rho(D) immune globulin (RHOGAM) syringe 300 mcg 300 mcg Intramuscular ONCE simethicone (GAS RELIEF (SIMETHICONE)) chewable tablet 160 mg 160 mg Oral PC+HSPRN calcium gluconate 100 mg/mL (10%) injection 1,000 mg 1,000 mg Slow IV Push PRN - SEE INSTRUCTIONS D5W 0.45% NaCl (1/2NS) IV infusion 1,000 mL 1,000 mL IV Infusion CONTINUOUS 100 mL/hr at 06/16/20 0928 1,000 mL at 06/16/20 0928 D5W-LR IV infusion 1,000 mL 1,000 mL IV Infusion CONTINUOUS 125 mL/hr at 06/15/20 1621 1,000 mLat 06/15/20 1621 labetaloL (NORMODYNE) injection 20 mg 20 mg Slow IV Push PRN - SEE INSTRUCTIONS And labetaloL (NORMODYNE) injection 40 mg 40 mg Slow IV Push PRN - SEE INSTRUCTIONS And labetaloL (NORMODYNE) injection 80 mg 80 mg Slow IV Push PRN - SEE INSTRUCTIONS And hydralAZINE (APRESOLINE) injection 10 mg 10 mg Slow IV Push PRN - SEE INSTRUCTIONS magnesium sulfate 4 mEq/mL (50 %) injection 16 mEq 2 g Slow IV Push PRN - SEE INSTRUCTIONS magnesium sulfate 4 mEq/mL (50 %) injection 32 mEq 4 g Slow IV Push PRN - SEE INSTRUCTIONS SERTraline (ZOLOFT) tablet 25 mg 25 mg Oral DAILY 25 mg at 06/15/202007 Labs: CBC BMP MAGNESIUM WBC (10*3/L) Date Value 06/17/2020 10.90 No results found for: NA No results found for: MG PLT (10*3/L) Date Value 06/17/2020 171 No results found for: K HGB (g/dL) Date Value 06/17/2020 7.0 (L) No results found for: CA HCT (%) Date Value 06/17/2020 20.9 (L) No results found for: CL TYPE & RH No results found for: BUN ABO & RH (no units) Date Value 06/15/2020 O Positive No results found for: CREAT Type & Screen Rubella Varicella ABO & RH (no units) Date Value 06/15/2020 O Positive Rubella screen IgG (no units) Date Value 11/19/2019 Positive No results found for: VZVG No results found for: TSABINT Hep B HIV Syphilis No results found for: HBS No results found for: HIV No results found for: SYPG Group B Strep Chlamydia No results found for: CGBS C. trachomatis Nucleic Acid (no units) Date Value 06/12/2020 Negative Assessment/Plan: PPD#2 - Doing well. Continue routine care. Will remove morejon - Pre-eclampsia with severe features: excellent diuresis. S/p 24 hrs of magnesium sulfate. BPs mild range with intermittent severe range since delivery. HCTZ 25 mg daily started yesterday. Will change to Nifedipine. Continue to monitor - Depression: Zoloft 25 mg daily - Acute on chronic anemia due to blood loss: Patient received 1 unit of PRBCs yesterday. Pre-transfusion H/H was 6.8/20.7 and post-transfusion was 7/20.9. Pulse improved since transfusion - Dispo: Anticipate discharge home later today if remains stable Kwame Medina MD 06/17/2020 8:12 AM Kwame Slater MD - 06/16/2020 1:10 PM CDTLate entry RN reported heavier vaginal bleeding than usual. Has hung pitocin 40 units as directed and bleeding has improved and minimal now. Minimal lochia noted on exam. Fundus firm and below umbilicus. Left labia very edematous. Will leave Morejon in place until tomorrow. Patient tachycardic. Will obtain CBC Continue magnesium sulfate for at least 24 hours. Kwame Medina MD 06/16/2020 6:02 PM Kwame Slater MD - 06/16/2020 5:13 AM CDT PROGRESS NOTE Subjective: Patient is a 20 year old, S/P , post day 1. She complains of nothing. Denies PIH symptoms. Objective: Vital Signs: BP: (123-171)/(70-117) Temp: [36.7 C (98 F)-36.8 C (98.3 F)] Temp source: Oral (06/16 0441) Pulse: [83-119] Resp: [18] SpO2: [97 %-100 %] Height: [157.5 cm (5' 2")] Weight: [72.6 kg (160 lb)] BMI (calculated): [29.26] Physical Exam: General: NAD Lungs: clear to auscultation bilaterally Cardiology: regular rate and rhythm Abdomen: Soft, NTTP, fundus firm and below umbilicus Extremities: no clubbing, cyanosis, or edema Current Medications: Current Facility-Administered Medications Medication Dose Route Frequency Last Rate Last Dose acetaminophen (TYLENOL) tablet 650 mg 650 mg Oral Q6HPRN benzocaine-menthol (DERMOPLAST) 20-0.5 % topical spray Topical PRN diphenhydrAMINE (BENADRYL) tablet 25 mg 25 mg Oral Q6HPRN diphenhydrAMINE-0.9 % sod.chlr (BENADRYL) 25 mg/50 mL piggyback 25 mg 25 mg IV Piggyback Q6HPRN docusate calcium (SURFAK) capsule 240 mg 240 mg Oral QDAILYPRN hydroCHLOROthiazide (ESIDRIX) capsule 25 mg 25 mg Oral DAILY HYDROcodone-acetaminophen (NORCO 5) 5-325 mg tablet 1 tablet 1 tablet Oral Q6HPRN ibuprofen (IBU) tablet 600 mg 600 mg Oral Q6HPRN LR 1000 mL + oxytocin 20 units IV Solution IV Infusion CONTINUOUS magnesium hydroxide (MILK OF MAGNESIA) 400 mg/5 mL suspension 30 mL 30 mL Oral QDAILYPRN ondansetron (ZOFRAN (PF)) injection 4 mg 4 mg Slow IV Push Q8HPRN vitamin w/FA (PRENATABS RX) tablet 1 tablet 1 tablet Oral DAILY rho(D) immune globulin (RHOGAM) syringe 300 mcg 300 mcg Intramuscular ONCE simethicone (GAS RELIEF (SIMETHICONE)) chewable tablet 160 mg 160 mg Oral PC+HSPRN calcium gluconate 100 mg/mL (10%) injection 1,000 mg 1,000 mg Slow IV Push PRN - SEE INSTRUCTIONS D5W 0.45% NaCl (1/2NS) IV infusion 1,000 mL 1,000 mL IV Infusion CONTINUOUS D5W-LR IV infusion 1,000 mL 1,000 mL IV Infusion CONTINUOUS 125 mL/hr at 06/15/20 1621 1,000 mLat 06/15/20 1621 labetaloL (NORMODYNE) injection 20 mg 20 mg Slow IV Push PRN - SEE INSTRUCTIONS And labetaloL (NORMODYNE) injection 40 mg 40 mg Slow IV Push PRN - SEE INSTRUCTIONS And labetaloL (NORMODYNE) injection 80 mg 80 mg Slow IV Push PRN - SEE INSTRUCTIONS And hydralAZINE (APRESOLINE) injection 10 mg 10 mg Slow IV Push PRN - SEE INSTRUCTIONS magnesium sulfate 4 mEq/mL (50 %) injection 16 mEq 2 g Slow IV Push PRN - SEE INSTRUCTIONS magnesium sulfate 4 mEq/mL (50 %) injection 32 mEq 4 g Slow IV Push PRN - SEE INSTRUCTIONS magnesium sulfate in LR 40 gram/500 mL IV Solution 2 g/hr IV Infusion CONTINUOUS 25 mL/hr at 06/15/201958 2 g/hr at 06/15/201958 SERTraline (ZOLOFT) tablet 25 mg 25 mg Oral DAILY 25 mg at 06/15/202007 Labs: CBC BMP MAGNESIUM WBC (10*3/L) Date Value 06/15/2020 5.77 No results found for: NA No results found for: MG PLT (10*3/L) Date Value 06/15/2020 242 No results found for: K HGB (g/dL) Date Value 06/15/2020 9.7 (L) No results found for: CA HCT (%) Date Value 06/15/2020 29.5 (L) No results found for: CL TYPE & RH No results found for: BUN ABO & RH (no units) Date Value 06/15/2020 O Positive No results found for: CREAT Type & Screen Rubella Varicella ABO & RH (no units) Date Value 06/15/2020 O Positive Rubella screen IgG (no units) Date Value 11/19/2019 Positive No results found for: VZVG No results found for: TSABINT Hep B HIV Syphilis No results found for: HBS No results found for: HIV No results found for: SYPG Group B Strep Chlamydia No results found for: CGBS C. trachomatis Nucleic Acid (no units) Date Value 06/12/2020 Negative Assessment/Plan: PPD#1 - Doing well. Continue routine care - Pre-eclampsia with severe features: On magnesium sulfate. Plan to continue for at least 24 hrs unless clinically indicated otherwise. UOP adequate. BPs mild range since delivery. Will start HCTZ25 mg daily. Continue to monitor - Depression: Zoloft 25 mg daily - Dispo: Anticipate discharge home tomorrow if remains stable Kwame Medina MD 06/16/2020 10:05 AM Kwame Slater MD - 06/15/2020 7:36 PM CDT Patient rules in for pre-eclampsia with severe features based on severe ranging BPs. Will start magnesium sulfate now for seizure prophylaxis. Kwame Medina MD 06/15/2020 7:40 PM documented in this encounter H&P Notes Kwame Medina MD - 06/15/2020 7:19 PM CDT TRIAGE HISTORY & PHYSICAL IDENTIFYING DATA Renita Brooke is 20 year old, /White, 37w1d, female with SABA 07/05/2020, by Ultrasound. : 2000 Primary Care Physician: Umm Faith CHIEF COMPLAINT Sent from clinic for delivery due to gestational hypertension HISTORY OF PRESENT ILLNESS Renita Brooke is a 20 year old female @ 37w1d sent from clinic for delivery due to gestational hypertension. BPs +FM. No VB, LOF, or CTX. No pre-eclampsia sx or other complaints. PAST OBSTETRIC HISTORY OB History Para Term AB Living 1 SAB TAB Ectopic Multiple Live Births # Outcome Date GA Lbr Kris/2nd Weight Sex Delivery Anes PTL Lv 1 Current PAST MEDICAL HISTORY Problem list: Patient Active Problem List Diagnosis Date Noted 37 weeks gestation of 06/15/2020 Anemia, antepartum, third trimester 06/15/2020 Gestational hypertension, third trimester 06/15/2020 Depression during in third trimester 05/22/2020 High-risk in third trimester 12/18/2019 Maternal varicella, non-immune 11/20/2019 Operations: No past surgical history on file. Past Medical History: Diagnosis Date Anemia, antepartum, third trimester 06/15/2020 Depression during in third trimester 05/22/2020 Gestational hypertension, third trimester 06/15/2020 Gonorrhea affecting in first trimester 11/26/2019 CURRENT HEALTH STATUS Medications: Current Facility-Administered Medications Medication Dose Route Frequency Last Rate Last Dose D5W-LR IV infusion 1,000 mL 1,000 mL IV Infusion CONTINUOUS 125 mL/hr at 06/15/20 1621 1,000 mLat 06/15/20 1621 FENTanyl PF (SUBLIMAZE (PF)) injection 75 mcg 75 mcg Slow IV Push Q1HPRN lactated ringers IV infusion 500 mL 500 mL IV Infusion PRN - SEE INSTRUCTIONS 999 mL/hr at 06/15/20 1621 500 mL at 06/15/20 1621 lidocaine 1% (PF) (XYLOCAINE) injection 0.3 mL 0.3 mL Infiltration PRN - SEE INSTRUCTIONS LR 1000 mL + oxytocin 20 units IV Solution 2-40 timothy-units/min IV Infusion TITRATE 12 mL/hr at06/15/20 1840 4 timothy-units/min at 06/15/20 1840 proMETHazine (PHENERGAN) 25 mg in NaCl 0.9% (NS) 50 mL IV piggyback 25 mg IV Piggyback Q4HPRN sodium citrate-citric acid (BICITRA) 500-334 mg/5 mL solution 30 mL 30 mL Oral PRE-PROCEDURE ONCE Allergies and drug reactions: Patient has no known allergies. HOME MEDICATIONS Medications Prior to Admission Medication Sig Dispense Refill Last Dose ferrous sulfate (IRON, FERROUS SULFATE,) 325 mg (65 mg iron) tablet Take 1 tablet by mouth daily. 90 tablet 0 SERTraline (ZOLOFT) 25 mg tablet Take 1 tablet by mouth daily. 30 tablet 1 Taking vits62/FA/om3/dha/epa ( GUMMY ORAL) Take by mouth. Taking SOCIAL HISTORY Tobacco History: Social History Tobacco Use Smoking Status Never Smoker Smokeless Tobacco Never Used Drug History: Social History Substance and Sexual Activity Drug Use Yes Types: Marijuana Comment: last THC use two weeks ago ; discouraged use Alcohol History: Social History Substance and Sexual Activity Alcohol Use Never Frequency: Never FAMILY HISTORY Family History Problem Relation Age of Onset [...] Psychiatry NoFHx Other - see comments NoFHx REVIEW OF SYSTEMS General: negative Constitutional: negative Eyes: negative ENT/Mouth: negative Cardiovascular: negative Respiratory: negative Gastrointestinal:negative Genitourinary: negative Musculoskeletal: negative Skin/breast: negative Neurological: negative Psychiatric: negative Endocrine: negative Hemat/Lymph: negative Allergic/Immuno:none VITAL SIGNS BP: (139-162)/(94-117) Temp: [36.8 C (98.3 F)] Temp source: Oral (06/15 1410) Pulse: [84-103] Resp: [18] SpO2: [100 %] Height: [157.5 cm (5' 2")] Weight: [72.6 kg (160 lb)] BMI (calculated): [29.26] PHYSICAL EXAMINATIONS Gen: alert and oriented, well appearing, no distress CV: RRR, normal S1/S2, no m/r/g Resp: normal work of breathing, lungs CTAB Abd: gravid, soft, NTTP Ext: no calf tenderness or edema : SVE ft/th/high REVIEW OF LABORATORY, PATHOLOGY, AND RADIOLOGY DATA Lab results: Type & Screen HIV Hep B Syphilis Chlamydia ABO & RH Date Value Ref Range Status 06/15/2020 O Positive Final Comment: Performed at [facility] [address] [place] [id number] Toll Free: [phone] CLIA No. [id number] No results found for: HIVMULTIPLEX No components found for: HBSHBSAG Syphilis IgG/IgM Date Value Ref Range Status 11/19/2019 Non-reactive Non-reactive Final C. trachomatis Nucleic Acid Date Value Ref Range Status 06/12/2020 Negative Negative Final IAT Date Value Ref Range Status 06/15/2020 Negative Final Comment: Performed at [facility] [address] [place] [phone] Toll Free: [phone] CLIA No. [id number] Varicella Rubella Glucose Group B Strep CBC VZV IgG antibody Date Value Ref Range Status 11/19/2019 Negative Negative Final Rubella screen IgG Date Value Ref Range Status 11/19/2019 Positive Negative Final GLUC 1 HR Date Value Ref Range Status 05/11/2020 83 (L) 120 - 170 mg/dL Final No results found for: CGBS HGB Date Value Ref Range Status 06/15/2020 9.7 (L) 11.6 - 15.0 g/dL Final HCT Date Value Ref Range Status 06/15/2020 29.5 (L) 35.7 - 45.2 % Final PLT Date Value Ref Range Status 06/15/2020 242 166 - 358 10*3/L Final Active Hospital Problems Diagnosis Date Noted 37 weeks gestation of 06/15/2020 Anemia, antepartum, third trimester 06/15/2020 Gestational hypertension, third trimester 06/15/2020 Depression during in third trimester 05/22/2020 High-risk in third trimester 12/18/2019 Maternal varicella, non-immune 11/20/2019 Address in . Resolved Hospital Problems No resolved problems to display. Present on Admission: 37 weeks gestation of Depression during in third trimester High-risk in third trimester Maternal varicella, non-immune Anemia, antepartum, third trimester Gestational hypertension, third trimester ASSESSMENT AND PLAN Renita Brooke is a 20 year old at 37w1d who presents delivery due to gestational hypertension. Gestational hypertension - Tox labs wnl, pending Pr/Cr ratio - asymptomatic - admit for delivery Induction - FB placed. Low dose pitocin overnight - GBS neg - cephalic confirmed - Dimitrios 5 lbs 14 oz Hx of anxiety/depression - on Zoloft 25 mg daily - continue to monitor PVT of Dr. Medina, please see OB Summary for more details Kwame Medina MD 06/15/2020 7:29 PM documented in this encounter Procedure Notes Kwame Medina MD - 06/15/2020 7:29 PM CDTProcedure(s): INSERT CERVICAL DILATOR Pre-Procedure Diagnose(s): 37 weeks gestation of ; Gestational hypertension, third trimesterPost-Procedure Diagnose(s): 37 weeks gestation of ; Gestational hypertension, third trimester Morejon bulb inserted in a sterile manner and inflated with 60 cc of normal saline without complications. Patient tolerated the procedure well. Kwame Medina MD #[id number] 06/15/2020 7:30 PM documented in this encounter Miscellaneous Notes Care Plan - Carmelita Smith RN - 06/17/2020 7:40 PM CDT Problem: Intrapartum process (including labor pain) Goal: Absence of or reduction of complications of labor Outcome: Adequate for discharge Goal: Able to cope with pain Outcome: Adequate for discharge Goal: Adequate to move to next level of care Outcome: Adequate for discharge Goal: Reduction in pain sensation Outcome: Adequate for discharge Problem: Falls, Risk of Goal: Absence of falls Outcome: Adequate for discharge are Plan - Florina Scherer RN - 06/17/2020 5:56 AM CDT Problem: Intrapartum process (including labor pain) Goal: Absence of or reduction of complications of labor Outcome: Progressing as expected Goal: Able to cope with pain Outcome: Progressing as expected Goal: Adequate to move to next level of care Outcome: Progressing as expected Goal: Reduction in pain sensation Outcome: Progressing as expected Problem: Falls, Risk of Goal: Absence of falls Outcome: Progressing as expected &D Delivery Note - Kwame Medina MD - 06/16/2020 12:37 AM CDTDELIVERY BY SPONTANEOUS VAGINAL DELIVERY Delivery Date: 06/15/2020 Delivery Time: 11:58 PM Delivery Summary Renita Brooke is a 20 year old female G1 @ 37w1d with pre-eclampsia with severe features, depression on Zoloft, and anemia. The patient was admitted to the Labor & Delivery unit for induction at 37 weeks due to pre-eclampsia with severe features. Delivery Physician: Kwame Medina MD Intrapartum Anesthesia/Analgesia: IV Fentanyl anlagesia Mode of Delivery: Delivery of giang fetus with cephalic presentation Fetus Spontaneous vaginal delivery of head with cephalic position, left occipital anterior. As the head crowned and distended the perineum, no episiotomy was performed. A blue towel was used to protect the perineum as the head crowned and delivered. The other hand was used to exert pressure on the oc ciput to control the delivery of the head. The perineum was pushed with a towel- draped hand as the head and mouth was delivered over the perineum. The head was allowed to rotate externally to achieve natural body posture. Examination of neck revealed no umbilical cord. The shoulder was delivered by gentle downward traction applied to head and downward traction for the delivery of anterior shoulder. This was followed by upward traction with delivery of posterior shoulder and body. After the delivery of infant, bulb suction was performed from ororpharynx and nostril with removal of clear amnioticfluid. A normal, male was delivered. The umbilical cord was milked towards the fetus, clamped, cut and the was handed off the field to the circulating nurse. The pedi RN were at the stand to evaluate the new born. Placenta Placenta was delivered spontaneously while the abdominal hand lifted the uterus cephalad and other hand keeping the umbilical cord slightly taut. Laceration: Bilateral labial lacerations, first degree Laceration Repair: 10 cc of 1% lidocaine injected to the area. Minor - lacerations (perineum, sidewall, labial, vaginal floor and/or periurethral) were closed with continuous sutures. . Fourth Stage Fourth stage of labor was managed by uterine massage with abdominal hand and infusion 20 units of pitocin mixed with intravenous fluid. QBL: See I/O's Complications: None Apgars: 06/24 Weight: 2945 grams Kwame Medina MD 06/16/2020 12:41 AM documented in this encounter Plan of Treatment Date Type Specialty Care Team Description 06/23/2020 Nurse Visit Obstetrics & Nurse, [facility] Women's Gynecology Health 07/13/2020 Routine Obstetrics & Malgorzata Sorto, Visit Gynecology KENZIE [address] [place] [phone] Health Maintenance Due Date Last Done [...] Procedure Name Priority Date/Time Associated Comments Diagnosis CBC WITH DIFF Routine 06/17/2020 4:42 AM Results for this CDT procedure are i n the results section. PREPARE PACKED RBC Routine 06/16/2020 9:26 PM Re sults for this CDT procedure are i n the results section. CBC WITH DIFF STAT 06/16/2020 6:15 PM Results for this CDT procedure are i n the results section. ARTERIAL CORD GAS Routine 06/16/2020 12:15 AM Res ults for this CDT procedure are i n the results section. VENOUS CORD GAS Routine 06/16/2020 12:13 AM Resul ts for this CDT procedure are i n the results section. PROTEIN CREAT RATIO Routine 06/15/2020 7:11 PM R esults for this URINE RANDOM CDT procedure are i n the results section. RHO (D) IMMUNE Routine 06/15/2020 4:22 PM Result s for this GLOBULIN CDT procedure are i n the results section. HB ABO GROUPING ANA 06/15/2020 4:22 PM Resul ts for this CDT procedure are i n the results section. ADC OR KEARA ONLY ANA 06/15/2020 4:19 PM R esults for this - RPR CDT procedure are i n the results section. HEPATITIS B SURFACE ANA 06/15/2020 4:19 PM R esults for this ANTIGEN CDT procedure are i n the results section. CBC WITH DIFF ANA 06/15/2020 4:19 PM Results for this CDT procedure are i n the results section. COVID-19 (ID NOW Routine 06/15/2020 4:03 PM Resu lts for this RAPID TESTING) CDT procedure are in the results section. CONSENT/REFUSAL FOR Routine 06/15/2020 3:19 PM DIAGNOSIS AND CDT TREATMENT ASSIGNMENT OF Routine 06/15/2020 3:18 PM BENEFITS CDT HIV 1/2 AG-AB WITH Add-on 06/15/2020 12:16 PM Re sults for this REFLEX CDT procedure are i n the results section. documented in this encounter Results CBC with Differential (06/17/2020 4:42 AM CDT) Pathologist Sig nature WBC 10.90 4.30 - 11.10 [facility] 10*3/L H[facility]PITAL [facility] RBC 2.40 (L) 3.93 - 5.25 [facility] 10*6/L [facility]ITAL [facility] HGB 7.0 (L) 11.6 - 15.0 [facility] g/dL HOSPITAL [facility] HCT 20.9 (L) 35.7 - 45.2 % [facility] MCV 87.1 80.6 - 95.5 fL [facility] MCH 29.2 25.9 - 32.8 pg [facility] MCHC 33.5 31.6 - 35.1 [facility] g/dL [facility] RDW-SD 48.3 39.0 - 49.9 fL [facility] RDW-CV 15.6 (H) 12.0 - 15.5 % [facility] PLT 171 166 - 358 [facility] 10*3/L [facility] MPV 12.4 9.5 - 12.9 fL [facility] NRBC/100 WBC 0.0 0.0 - 10.0 /100 [facility] WBCs [facility] NRBC x10^3 <0.01 10*3/L [facility] GRAN MAT (NEUT) % 75.1 % [facility] IMM GRAN % 0.40 % [facility] LYMPH % 15.9 % [facility] MONO % 7.2 % [facility] EOS % 1.2 % [facility] BASO % 0.2 % [facility] GRAN MAT x10^3(ANC) 8.19 (H) 1.88 - 7.09 [facility] 10*3/uL [facility] IMM GRAN x10^3 0.04 0.00 - 0.06 [facility] 10*3/uL [facility] LYMPH x10^3 1.73 1.32 - 3.29 [facility] 10*3/uL [facility] MONO x10^3 0.79 0.33 - 0.92 [facility] 10*3/uL [facility] EOS x10^3 0.13 0.03 - 0.39 [facility] 10*3/uL [facility] BASO x10^3 <0.03 0.01 - 0.07 [facility] 10*3/uL [facility] Specimen Blood - VENOUS Performing Organization Address City/State/Zipcode Phone Number [facility] CLIA: [id number] [place], [place] [id number] LABORATORY [address] Prepare Packed RBC (in units), 1 Units (06/16/2020 9:26 PM CDT) Cross Match Result Compatible LAB ISBT Blood Type Code 5100 LAB Unit Blood Type O Pos LAB Unit Number [id number] LAB Blood Expiration Date & LAB Time Status Information Issued LAB Product Identification Red Blood Cells LAB Product Code [id number] LAB Comment: Performed at [facility] Blood Bank [address] [place] [id number] Toll Free: [phone] CLIA No. [id number] Specimen Performing Organization Address City/State/Zipcode Phone Number BLD LAB CBC WITH DIFF (06/16/2020 6:15 PM CDT) Pathologist Sig nature WBC 13.56 (H) 4.30 - 11.10 [facility] 10*3/L [facility] RBC 2.35 (L) 3.93 - 5.25 [facility] 10*6/L [facility] HGB 6.8 (L) 11.6 - 15.0 [facility] g/dL [facility] HCT 20.7 (L) 35.7 - 45.2 % [facility] MCV 88.1 80.6 - 95.5 fL [facility] MCH 28.9 25.9 - 32.8 pg [facility] MCHC 32.9 31.6 - 35.1 [facility] g/dL [facility] RDW-SD 46.8 39.0 - 49.9 fL [facility] RDW-CV 15.0 12.0 - 15.5 % [facility] PLT 209 166 - 358 [facility] 10*3/L [facility] MPV 12.2 9.5 - 12.9 fL [facility] NRBC/100 WBC 0.0 0.0 - 10.0 /100 [facility] WBCs [facility] NRBC x10^3 <0.01 10*3/L [facility] GRAN MAT (NEUT) % 79.0 % [facility] IMM GRAN % 0.70 % [facility] LYMPH % 11.7 % [facility] MONO % 7.5 % [facility] EOS % 0.8 % [facility] BASO % 0.3 % [facility] GRAN MAT x10^3(ANC) 10.72 (H) 1.88 - 7.09 [facility] 10*3/uL HOSPITAL LABORATORY IMM GRAN x10^3 0.09 (H) 0.00 - 0.06 [facility] 10*3/uL HOSPITAL LAB[facility]ORY LYMPH x10^3 1.58 1.32 - 3.29 [facility] 10*3/uL HOSPITAL LAB[facility] MONO x10^3 1.02 (H) 0.33 - 0.92 [facility] 10*3/uL HOSPITAL LAB[facility]ORY EOS x10^3 0.11 0.03 - 0.39 [facility] 103/uL [facility] BASO x10^3 0.04 0.01 - 0.[address]uL [facility] LAB[facility] Specimen Blood - VENOUS Performing Organization Address City/[facility]/Zipcode Phone Number [facility] CLIA: [id number] [place] [address] Arterial Cord Gas (06/16/2020 12:15 AM CDT) Pathologist Sig nature BASE EXCESS, CORD -5.4 mEq/L [facility] AC PH, CORD (BEAKER) 7.28 7.18 - 7.38 [facility] PC02, CORD 47 32 - 66 mmHg [facility] PO2, CORD 20 10 - 30 mmHg [facility] BICARBONATE, CORD 22 17 - 27 mEq/L [facility] Specimen Blood - ARTERIAL Performing Organization Address City/[facility]/Zipcode Phone Number [facility] CLIA: [id number] [place] [address] Venous Cord Gas (06/16/2020 12:13 AM CDT) Pathologist Sig nature VENOUS BASE EXCESS, -5.0 mEq/L [facility] VENOUS PH, CORD 7.35 7.25 - 7.45 [facility] VENOUS PC02, CORD 36 27 - 49 mmHg [facility] VENOUS PO2, CORD 30 17 - 41 mmHg [facility] VENOUS BICARBONATE, 20 12 - 29 mEq/L [facility] Specimen Blood - VENOUS Performing Organization Address City/[facility]/Zipcode Phone Number [facility] CLIA: [id number] [place] [address] [place] [address] PROTEIN CREAT RATIO URINE RANDOM (06/15/2020 7:11 PM CDT) Pathologist Sig nature T. PROT U 70 mg/dL [facility] CREAT U 243.6 mg/dL [facility] Protein/Creatinine 0.3 0.0 - 2.0 [facility] Urine [facility] Specimen Urine - URINE, CLEAN CATCH Performing Organization Address City/[facility]/Zipcode Phone Number [facility] CLIA: [id number] [place] [address] [place] [address] RHO (D) IMMUNE GLOBULIN (06/15/2020 4:22 PM CDT) Pathologist Sig nature RHIG CANDIDATE? No- see comment LAB Comment: Patient is not a candidate for RhIg- Patient is Rh Pos itive. Performed at [facility] Blood Bank [address] [place] [phone] Toll Free: [phone] CLIA No. [id number] Specimen Blood - VENOUS Performing Organization Address [facility] [place] Phone Number BLD LAB Type and Screen - ONCE ANA (06/15/2020 4:22 PM CDT) Pathologist Sig nature ABO & RH O Positive LAB Comment: Performed at [facility] Blood Bank [address] [place] [phone] Toll Free: [phone] CLIA No. [id number] IAT Negative LAB Comment: Performed at [facility] Blood Bank [address] [place] [phone] Toll Free: [phone] CLIA No. [id number] Specimen Blood - VENOUS Performing Organization Address City/[facility]/Zipcode Phone Number BLD LAB CBC with Differential (06/15/2020 4:19 PM CDT) Pathologist Sig nature WBC 5.77 4.30 - 11.10 [facility] 10*3/L HOSPITAL LABORATORY RBC 3.40 (L) 3.93 - 5.25 [facility] 10*6/L [facility] HGB 9.7 (L) 11.6 - 15.0 [facility] g/dL [facility] HCT 29.5 (L) 35.7 - 45.2 % [facility] MCV 86.8 80.6 - 95.5 fL [facility] MCH 28.5 25.9 - 32.8 pg [facility] MCHC 32.9 31.6 - 35.1 [facility] g/dL [facility] RDW-SD 45.9 39.0 - 49.9 fL [facility] RDW-CV 14.7 12.0 - 15.5 % [facility] PLT 242 166 - 358 [facility] 10*3/L [facility] MPV 12.7 9.5 - 12.9 fL [facility] NRBC/100 WBC 0.0 0.0 - 10.0 /100 [facility] WBCs [facility] NRBC x10^3 <0.01 10*3/L [facility] GRAN MAT (NEUT) % 71.9 % [facility] IMM GRAN % 0.20 % [facility] LYMPH % 19.1 % [facility] MONO % 6.9 % [facility] EOS % 1.6 % [facility] BASO % 0.3 % [facility] GRAN MAT x10^3(ANC) 4.15 1.88 - 7.09 [facility] 10*3/uL HOSPITAL LABORATORY IMM GRAN x10^3 <0.03 0.00 - 0.06 [facility] 10*3/uL HOSPITAL LAB[facility]ORY LYMPH x10^3 1.10 (L) 1.32 - 3.29 [facility] 10*3/uL HOSPITAL LAB[facility]ATORY MONO x10^3 0.40 0.33 - 0.92 [facility] 10*3/uL HOSPITAL LABORATORY EOS x10^3 0.09 0.03 - 0.39 [facility] 10*3/uL HOSPITAL LAB[facility] BASO x10^3 <0.03 0.01 - 0.07 [facility] 10*3/uL HOSPITAL LABORATORY Specimen Blood - VENOUS Performing Organization Address City/[facility] Phone Number [facility] CLIA: [id number] [place], [place] [address] LABORATORY [address] [place] [address] ADC OR KEARA ONLY - RPR (06/15/2020 4:19 PM CDT) Pathologist Sig nature RPR (Qualitative) Nonreactive Nonreactive [facility] Specimen Blood - VENOUS Performing Organization Address [facility] Phone Number [facility] CLIA: [id number] [place], [place] [address] LABORATORY [address] [facility] Hepatitis B Surface Antigen (06/15/2020 4:19 PM CDT) Pathologist Sig nature HBsAg Negative Negative [facility] HBsAg 0.08 [facility] Semi-Quantitative SERVICES Specimen Blood - VENOUS Performing Organization Address [facility] Phone Number [facility] CLIA: [id number] [place], [place] [id number] [address] [place] [address] COVID-19 (ID NOW RAPID TESTING) (06/15/2020 4:03 PM CDT) SARS-CoV-2 Rapid ID Not Detected Not Detected [facility] Specimen Swab - NASOPHARYNGEAL SWAB Narrative Performed At ID NOW COVID-19 Assay is an isothermal nucleic [facility] LAB[facility] acid amplification test intended for the qualitative detection of nucleic acid from SARS-CoV-2 viral RNA in nasopharyngeal (FENCE SUPERVISOR) specimens. It is used under Emergency Use Authorization (EUA) by FDA. The limit of detection (LOD) of the assay is 125 Genome Equivalents/mL. A positive result is indicative of the presence of SARS-CoV-2 RNA. Clinical correlation with patient history and other diagnostic information is necessary to determine patient infection status. A negative (Not Detected) result does not preclude SARS-CoV-2 infection. In patients with clinical symptoms and other tests that are consistent with SARS-CoV-2 infection, negative results should be treated as presumptive negative and a new specimen should be tested with alternative PCR molecular test. Invalid: Please collect a new specimen for repeat patient testing if clinically indicated. Performing Organization Address City/[facility]/Zipcode Phone Number [facility] CLIA: [id number] [place] [address] HIV 1/2 AG-AB WITH REFLEX (06/15/2020 12:16 PM CDT) Pathologist Sig nature HIV 1/2 Ag-Ab with Negative Negative [facility] HOSPITAL LABORATORY HIV Semi-quantitative 0.12 [facility] Specimen Blood Narrative Performed At Non-reactive for HIV-1 antigen and HIV-1/HIV-2 [facility] antibodies. No laboratory evidence of HIV infection. Repeat in 2-4 weeks if acute HIV infection is suspected. Performing Organization Address City/State/Zipcode Phone Number [facility] CLIA: [id number] [place] [address] [place] [address] documented in this encounter Visit Diagnoses Diagnosis Liveborn infant, of giang , born in hospital by vaginal delivery - Primary Maternal varicella, non-immune Supervision of other high-risk High-risk in third trimester Depression during in third tri mester 37 weeks gestation of state, incidental Anemia, antepartum, third trimester Severe pre-eclampsia in third trimester Severe pre-eclampsia, antepartum documented in this encounter Administered Medications Medication Order MAR Action Action Date Dose Rate Site calcium gluconate 100 mg/mL (10%) inject ion 1,000 mg 1,000 mg, Slow IV Push, PRN - SEE INSTRU CTIONS, Starting Mon06/15/20 at 1934, Until Discontinued, Routine, magnesium toxicity D5W 0.45% NaCl (1/2NS) IV New Bag 06/16/2020 9:28 AM CDT 1,000 mL 100 mL/hr infusion 1,000 mL at 100 mL/hr, 1,000 mL, IV Infusion, CONTINUOUS, Starting Mon06/15/20 at 1945, Until Discontinued, ANA D5W-LR IV infusion 1,000 mL New Bag 06/15/2020 4:21 PM CDT 1,000 mL 125 mL/hr at 125 mL/hr, IV Infusion, CONTINUOUS, Starting Mon06/15/20 at 1545, Until Discontinued, Routine ferrous sulfate tablet 325 mg Given 06/17/2020 7:42 AM CDT 325 mg 325 mg, Oral, BID, First dose on Mon06/17/20 at 0800, Until Discontinued, Routine hydralAZINE (APRESOLINE) injection 10 mg 10 mg, Slow IV Push, PRN - SEE INSTRUCTI ONS, 1 dose, Starting Mon06/15/20 at 1935, Until Discontinued, Routine, Hypertensive emergency, I f either BP threshold is still exceeded, administer Hydralazine 10 mg slow IV p ush (over 2 min). HYDROcodone-acetaminophen (NORCO 5) 5-325 Given 2019 2:40 PM CDT 1 tablet mg tablet 1 tablet 1 tablet, Oral, Q6HPRN, Starting Mon06/16/20 at 0208, Until Discontinued, Routine, Pain (scale 7-10) Given 06/17/2020 7:42 AM CDT 1 tablet Given 06/16/2020 9:54 PM CDT 1 tablet ibuprofen (IBU) tablet 600 mg Given 06/16/2020 8:59 PM CDT 600 mg 600 mg, Oral, Q6HPRN, Starting Mon06/16/20 at 0208, Until Discontinued, Routine, Pain (scale 4-6) Given 06/16/2020 9:31 AM CDT 600 mg labetaloL (NORMODYNE) injection 20 mg 20 mg, Slow IV Push, PRN - SEE INSTRUCTI ONS, 1 dose, Starting Mon06/15/20 at 1935, Until Discontinued, Routine, If severe B P persists for 15 min or more, administer Labetalol 20 mg IV slow IV push (over more than 2 min) labetaloL (NORMODYNE) injection 40 mg 40 mg, Slow IV Push, PRN - SEE INSTRUCTI ONS, 1 dose, Starting Mon06/15/20 at 1935, Until Discontinued, Routine, If either B P threshold is still exceeded, administer Labetalol 40 mg IV slow IV push (over 2 min). If BP below threshold, continue to monitor BP labetaloL (NORMODYNE) injection 80 mg 80 mg, Slow IV Push, PRN - SEE INSTRUCTI ONS, 1 dose, Starting Mon06/15/20 at 1935, Until Discontinued, Routine, If either B P threshold is still exceeded, administer Labetalol 80 mg IV slow IV push (over 2 min). If BP below threshold, continue to monitor BP LR 1000 mL + oxytocin 20 units IV New Bag 06/17/2020 6:31 AM CDT 125 mL/hr Solution at 125 mL/hr, IV Infusion, CONTINUOUS, Starting Mon06/16/20 at 0215, Until Discontinued, ANA New Bag 06/16/2020 10:20 PM CDT 125 mL/hr New Bag 06/16/2020 2:02 PM CDT 125 mL/hr magnesium sulfate 4 mEq/mL (50 %) inject ion 16 mEq 16 mEq (2 g), Slow IV Push, PRN - SEE IN STRUCTIONS, 2 doses, Starting Mon06/15/20 at 1934, Until Discontinued, Routine, For seizure acti vity (patient already on magnesium sulfate) magnesium sulfate 4 mEq/mL (50 %) inject ion 32 mEq 32 mEq (4 g), Slow IV Push, PRN - SEE IN STRUCTIONS, Starting Mon06/15/20 at 1934, Until Discontinued, Routine, For seizure activity (pat ient not on magnesium sulfate) NaCl 0.9% (NS) IV Line Priming and Flush ing Fluid Only 250 mL 250 mL, IV Infusion, SEE-INSTRUCTIONS, 1 dose, Starting Mon06/16/20 at 1907, Until Discontinued, 250 mL NIFEdipine ER (AFEDITAB CR) tablet 30 mg Given 06/17/2020 7:42 AM CDT 30 mg 30 mg, Oral, Q24H ABX, First dose on Mon06/17/20 at 0745, Until Discontinued, Routine oxytocin (PITOCIN) injection 20 Units New 06/16/2020 10:50 AM CDT 20 Units 20 Units, IV Piggyback, CONTINUOUS, Starting Mon06/16/20 at 1045, Until Discontinued, Routine vitamin w/FA (PRENATABS RX) Given 06/17/2020 7:42 AM C DT 1 tablet tablet 1 tablet 1 tablet, Oral, DAILY, First dose on Mon06/16/20 at 0900, Until Discontinued, Routine Given 06/16/2020 9:07 AM CDT 1 tablet SERTraline (ZOLOFT) tablet 25 mg Given 06/17/2020 7:42 AM CDT 25 mg 25 mg, Oral, DAILY, First dose on Mon06/15/20 at 1930, Until Discontinued, Routine Given 06/15/2020 8:08 PM CDT 25 mg Medication Order MAR Action Action Date Dose Rate Site acetaminophen (TYLENOL) tablet Given 06/16/2020 9:06 PM CDT 650 mg 650 mg 650 mg, Oral, ONCE, 1 dose, Mon06/16/20 at 1915, Routine btoymmgdwg-shkihswbkkibb-gmja (ESGIC) Given 06/17/2020 5:55 PM CDT 1 tablet 50-325-40 mg tablet 1 tablet 1 tablet, Oral, ONCE, 1 dose, Mon06/17/20 at 1900, Routine diphenhydrAMINE (BENADRYL) tablet 25 mg Given 06/16/2020 9:06 PM CDT 25 mg 25 mg, Oral, ONCE, 1 dose, Mon06/16/20 at 1915, Routine FENTanyl PF (SUBLIMAZE (PF)) injection 50 Given 06/16/2020 12:00 AM CDT 50 mcg mcg 50 mcg, Slow IV Push, ONCE, 1 dose, Mon06/16/20 at 0015, Routine FENTanyl PF (SUBLIMAZE (PF)) injection 75 Given 06/15/2020 10:21 PM CDT 75 mcg mcg 75 mcg, Slow IV Push, Q1HPRN, Starting Mon06/15/20 at 1536, Until Mon06/16/20 at 0209, Routine, contraction pain without an epidural and SVE < 8 cm and Cat I strip Given 06/15/2020 7:23 PM CDT 75 mcg hydroCHLOROthiazide (ESIDRIX) tablet 25 mg Given 06/16/2020 9:07 AM CDT 25 mg 25 mg, Oral, DAILY, First dose on Mon06/16/20 at 0900, Until Discontinued, Routine ketorolac (TORADOL) injection 30 mg Given 06/16/2020 12:08 AM CDT 30 mg 30 mg, Slow IV Push, ONCE, 1 dose, Mon06/16/20 at 0015, Routine, member of the legislative council approving Restricted medication: KWAME MEDINA lactated ringers IV infusion 500 New Bag 06/15/2020 4:21 PM C DT 500 mL 999 mL/hr mL at 999 mL/hr, 500 mL, IV Infusion, PRN - SEE INSTRUCTIONS, Starting Mon06/15/20 at 1535, Until Mon06/16/20 at 0209, Routine LR 1000 mL + oxytocin Rate Change 06/15/2020 11:15 PM 8 timothy-unit s/min 24 mL/hr 20 units IV Solution CDT at 6-120 mL/hr, IV Infusion, TITRATE, Starting Mon06/15/20 at 1536, Until Mon06/16/20 at 0209, ANA Rate Change 06/15/2020 10:15 PM CDT 6 timothy-units/min 18 mL/hr New Bag 06/15/2020 6:40 PM CDT 4 timothy-units/min 12 mL/hr magnesium sulfate in LR 40 gram/500 New Bag 06/15/2020 7:59 P M CDT 2 g/hr 25 mL/hr mL IV Solution 2 g/hr (25 mL/hr), at 25 mL/hr, IV Infusion, CONTINUOUS, Starting 06/15/20 at 1945, Until Mon06/16/20 at 0744, ANA magnesium sulfate in LR 40 gram/500 New Bag 06/16/2020 1:48 P M CDT 2 g/hr 25 mL/hr mL IV Solution 2 g/hr (25 mL/hr), at 25 mL/hr, IV Infusion, CONTINUOUS, Starting Mon06/16/20 at 1400, Until Mon06/17/20 at 0159, ANA proMETHazine (PHENERGAN) 25 mg in NaCl 0.9% Given 06/15/2020 8:19 PM CDT 25 mg (NS) 50 mL IV piggyback 25 mg, IV Piggyback, Q4HPRN, Starting Mon06/15/20 at 1537, Until Mon06/16/20 at 0209, Routine, Nausea and Vomiting (N/V) documented in this encounter Additional Health Concerns Infection Onset Date Last Indicated Resolved Time COVID-19 Rule Out 06/15/2020 06/15/2020 06/15/2020 4: 58 PM CDT documented as of this encounter Insurance Payer Benefit Plan / Subscriber ID Effective Phone Address T ype Group [facility] [id number] 2020-Prese P[address] BOX Medic aid HEALTH CHOICE - HEALTH CHOICE nt [id number] 1 MANAGED MEDICAID [place], [place]ID [phone] documented as of this encounter Advance Directives Name Relationship Healthcare Agent Communication Relationship Sabrina Brooke Father Health Care Agent
--- OUTSIDE RECORDS SUMMARY | 2020-09-10 09:05 | XMS REPORT | Summary of Care ---
:2000 Author Organization [facility] Address [address] [place] [address] Care Team Providers Name Role Phone Umm Faith Primary Care Provider Encounter Details Date Type Department Care Team Description 06/24/2020 Orders Only [facility] Doctor Unassigned, No [address] [facility] Name [place] [phone] [place] [phone] Allergies No Known Allergiesdocumented as of this encounter (statuses as of 06/24/2020) Medications Medication Sig Dispensed Refills Start Date [...] as of this encounter (statuses as of 06/24/2020) Active Problems Problem Noted Date Liveborn , of giang , [facility] by vaginal 06/16/2020 delivery 37 weeks gestation of 06/15/2020 Anemia, antepartum, third trimester 06/15/2020 Severe pre-eclampsia in third trimester 06/15/2020 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 documented as of this encounter (statuses as of 06/24/2020) Resolved Problems Problem Noted Date Resolved Date Rash and nonspecific skin eruption 02/26/202006/15 Gonorrhea affecting in first trimester 11/26/2019 02/14/2020 documented as of this encounter (statuses as of 06/24/2020) Immunizations Name Administration Dates Next Due DTAP [...] Obstetrics & Malgorzata Sorto, Visit Gynecology KENZIE [address] [place] [phone] Health Maintenance Due Date Last Done [...] Diagnosis Comme nts ASSIGNMENT OF BENEFITS Routine 06/24/2020 3:54 PM CDT documented in this encounter Results Not on filedocumented in this encounter Insurance Payer Benefit Plan / Subscriber ID Effective Phone Address T e Group [facility] [id number] 2020-Archana GRAY Medic aid HEALTH CHOICE - HEALTH CHOICE nt [id number] 1 MANAGED MEDICAID [place], [place] [phone] documented as of this encounter Advance Directives Name Relationship Healthcare Agent Communication Relationship Sabrina Pack Health Care Agent
--- OUTSIDE RECORDS SUMMARY | 2020-09-10 09:05 | XMS REPORT | Summary of Care ---
:2000 Author Organization [facility] Address [address] [place] [address] Care Team Providers Name Role Phone Umm Faith Primary Care Provider Reason for Visit Reason Comments LAB WORK Auth/Cert Status Reason Specialty Diagnoses / Procedures Referred By Molly ontact Referred To Contact Phlebotomy Diagnoses Elevated pulse rate Adc Pob Lab Draw Procedures CBC WITH DIFF Professional Office Building [address] [place] [address] , [address] [place] [address] Phone: Fax: Encounter Details Date Type Department Care Team Description 06/24/2020 [employer] Sports Coach Visit [facility] FuentesArmida MD [address] [place] [address] [address] [place] [address] Elevated pulse rate; Professional Office 2, Adc Lab History of blood transfusion Building Phlebotomy Lab Professional Office Building [address] [place] [address] , [address] [place] [address] Allergies No Known Allergiesdocumented as [...] [facility]ang [facility]2020 delivery 37 weeks [...] this encounter Nursing Notes Yola Barrett - 06/24/2020 3:00 PM CDT Venipuncture collection performed by clean technique on the right anticubitus. Total of 1 attempts were made. Slight pressure and a bandage/dressing were applied to the site(s). The patient experienced no complications. The following specimens were processed according to instructions and sent to [facility] laboratories per lab order on : LT BLUE SST RED 1 LAV PPT DK GREEN (LiHep) DK GREEN (SodH) QUEEN DK BLUE (K2) DK BLUE (S) ACD Blood Culture NIPT/NTD documented in this encounter Plan of Treatment Date Type Specialty Care Team Description 07/13/2020 Routine Obstetrics & Malgorzata Sorto, Visit Gynecology KENZIE [address] [address] Name Type Priority Associated Diagnoses Date/Ti me CBC WITH DIFF LAB Routine Elevated pulse r ate 06/24/2020 4:08 PM CDT History of blood transfusion Health Maintenance Due Date Last Done Comments [...] filedocumented in this encounter Visit Diagnoses Diagnosis Elevated pulse rate History of blood transfusion Other specified personal history present ing hazards to health documented in this encounter Insurance Payer Benefit Plan / Subscriber ID Effective Phone Address [facility] [id number] 2020-Prese P[address]O. BOX Medic aid HEALTH CHOICE - HEALTH CHOICE nt [id number] 1 MANAGED MEDICAID [place], [place] [phone] documented as of this encounter Advance Directives Name Relationship Healthcare Agent Communication Relationship Sabrina Pack Health Care Agent
--- OUTSIDE RECORDS SUMMARY | 2020-09-10 09:05 | XMS REPORT | Summary of Care ---
:2000 Author Organization [facility] Address [address] [place] [address] Care Team Providers Name Role Phone Umm Faith Primary Care Provider Reason for Visit Reason Comments Erroneous encounter-disregard Encounter Details Date Type Department Care Team Description 06/24/2020 Telephone [facility] [address] [place] [address], [address] [place] [address] [place], [place] [phone] Allergies No Known Allergiesdocumented as of [...] 06/24/2020) Active Problems Problem Noted Date Liveborn infant, of giang , [facility] in [facility] by vaginal 06/16/2020 delivery 37 weeks [...] Obstetrics & Malgorzata Sorto, Visit Gynecology KENZIE [address] [place] [phone] Health Maintenance Due Date Last Done [...] Effective Phone Address T e Group Dates [facility] [id number] 2020-Archana [address] BOX Medic aid HEALTH CHOICE - HEALTH CHOICE nt [id number] 1 MANAGED MEDICAID [place], [place] [phone] documented as of this encounter Advance Directives Name Relationship Healthcare Agent Communication Relationship Sabrina Brooke [facility] Health Care Agent [phone] (Mobile)
--- OUTSIDE RECORDS SUMMARY | 2020-09-10 09:05 | XMS REPORT | Summary of Care ---
:2000 Author Organization [facility] Address [address] [place] [address] Care Team Providers Name Role Phone Umm Faith Primary Care Provider Reason for Visit Reason Comments Orders CBC Encounter Details Date Type Department Care Team Description 06/24/2020 Case Management [facility] Women's FuentesArmida MD Orders (CBC) Healthcare- [address] [place] [address] [place] [address] [place] [address] [phone] Allergies No Known Allergiesdocumented as of this [...] Liveborn infant, of giang , born in [facility] by vaginal 06/16/2020 delivery 37 weeks [...] Signs Not on filedocumented in this encounter Progress Notes Perla Oliveros RN - 06/24/2020 9:46 AM CDTRN notified patient that CBC has been ordered and that she needs a lab appointment. Call transferredto [facility] for scheduling. Lab appointment scheduled for today at 3pm. Perla Oliveros RN 06/24/2020 1:13 PM Perla Oliveros RN - 06/24/2020 9:46 AM CDTRN called patient to notify of CBC order and need for lab appointment, no answer, left message for patient to return call. Perla Oliveros RN 06/24/2020 9:49 AM documented in this encounter Plan of Treatment Date Type Specialty Care Team Description 06/24/2020 Liquid Flavor Compounder Visit Phlebotomy Armida Fuentes MD [address] [place] [address] [address] 2, Adc Lab 07/13/2020 Routine Visit Obstetrics & Malgorzata Sorto, Gynecology KENZIE [address] [place] [phone] Name Type Priority Associated Diagnoses Order S chedule CBC WITH DIFF LAB Routine Elevated pulse r ate Expected: 06/24/2020, History of blood transfusion Expires: 06/24/2021 Health Maintenance Due Date Last Done Comments [...] Diagnoses Diagnosis Elevated pulse rate - Primary History of blood transfusion Other specified personal history present ing hazards to health documented in this encounter Insurance Payer Benefit Plan / Subscriber ID Effective Phone Address T [facility] [id number] 2020-Prese P.O. BOX Medic aid HEALTH CHOICE - HEALTH CHOICE nt [id number] 1 MANAGED MEDICAID [place], [place] [phone] documented as of this encounter Advance Directives Name Relationship Healthcare Agent Communication Relationship Sabrina Pack Health Care Agent [phone] (Mobile)
--- OUTSIDE RECORDS SUMMARY | 2020-09-10 09:06 | XMS REPORT | Summary of Care ---
:2000 Author Organization [facility] Address [address] [place] [address] Care Team Providers Name Role Phone Umm Faith Primary Care Provider Reason for Visit Reason Comments Assessment PP depression Encounter Details Date Type Department Care Team Description 09/01/2020 Telephone [facility] Women's Armida Fuentes MD Assessment ( Healthcare- [address] depression) [address] [place] [address] [address], [address] [place] [phone] [phone] Allergies No Known Allergiesdocumented as of this encounter (statuses as of 09/03/2020) Medications Medication Sig Dispensed Refills Start Date [...] hospital by vaginal delivery docusate calcium 240 mg Take 1 capsule 60 capsule 1 06/17/2020 Active capsuleIndications: by mouth once Maternal varicella, daily as needed non-immune, High-risk for in third Constipation. 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 in third Take with food trimester, Depression or milk. during in third trimester, 37 weeks [...] , born in hospital by vaginal delivery norethindrone 0.35 mg Take 1 tablet by 1 Package 12 07/20/2020 Active tabletIndications: mouth daily. control counseling, Initiation of OCP (BCP) SERTraline (ZOLOFT) 25 Take 1 tablet by 30 tablet 5 07/20/2020 Active mg tabletIndications: mouth daily. Generalized anxiety disorder, depression documented as of this encounter (statuses as of 09/03/2020) Active Problems Problem Noted Date Maternal varicella, non-immune 11/20/2019 Overview: Address in . 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 05/22/2020 07/20/2020 Rash and nonspecific skin eruption 02/26/202006/15 High-risk in third trimester 12/18/2019 1 Gonorrhea affecting in first trimester 11/26/2019 02/14/2020 documented as of this encounter (statuses as of 09/03/2020) Immunizations Name Administration Dates Next Due DTAP 04/29/2004 Influenza Virus Vaccine Quad .5 mL IM 6+ MO 07/20/2020 07/20/2021 MMR 04/29/2004 Polio (IPV/OPV) 04/29/2004 TDAP 04/24/2020 [...] Assigned at Date Recorded Not on file documented as of this encounter Last Filed Vital Signs Not on filedocumented in this encounter Miscellaneous Notes Telephone Encounter - Perla Oliveros RN - 09/02/2020 8:54 AM CSTRN returned patient call, no answer, left message for patient to call back to schedule telehealth appointment for her concerns. Will also route to PSS to reach out to patient for scheduling. Perla Oliveros RN 09/02/2020 8:57 AM ORK/TELECOM ENGINEER Telephone Encounter - May Basilio RN - 09/01/2020 5:00 PM CSTSpoke to NANETTE Mcgill regarding patient's symptoms SARAH: 07/20/2020 seen by Malgorzata Sorto PA-C PP depression: Refilled zoloft. Patient reports was not taking it consistently. Referral made for counseling at [facility]. FOLLOW-UP in 4 wks for FOLLOW-UP on EPDS via telehealth 08/17/2020 telehealth appointment, provider was unable to get a hold of patient Contacted patient Pt states she delivered baby 06/15/2020 via vaginal delivery Pt states she is currently taking zoloft and control pills Pt states today she didn't take her zoloft, and feels overwhelmed Pt states when she cant get her words out, it frustrates her Pt states she has forgotten to take her zoloft before Pt states she is at work right now- works for [employer] Pt states the baby is with her mom Pt states she is getting sleep at night, not eating much Pt states she lives with her boyfriend- states they are doing okay Pt states she did not have a phone to receive the telehealth call on 08/20/2020 Pt states as a child she had ADHD, she does not think that is what is going on. Pt states she is just unsure of why she does the things she does, states "I over think everything." Sometimes she is fine, but if she is alone she starts over thinking things. Pt states "I have alwaysbeen like this." Pt states she feels like it is getting worse, she has never broken down and cried but has been doingthat a lot lately. Pt denies any suicidal thoughts of harming herself or her baby. Pt states she has not been able to get on her mychart, states she can not remember the password and states she is having trouble remembering things and it is frustrating. Pt states she will have a breakdown and then be fine in a few minutes. Pt states she has not established with a PCP since having baby. Recommendations: Advised patient recommend follow up with OBGYN. Advised patient am having trouble scheduling appointment at [facility], patient given access center number to call to schedule or tospeak to a nurse if needed. Strong ER warnings given for any suicidal thoughts or thoughts of harming her baby. Pt states she will go if she has any of those thoughts. Advised patient any concerns contact access center. Pt verbalized understanding and agrees with plan. [facility] nurse: Pt does not have a car but needs a follow up, is requesting a telehealth appointment (now has a working phone) ORK/TELECOM ENGINEER Telephone Encounter - Yanet James - 09/01/2020 4:50 PM CSTPatient is request to speak to the nurse or Dr. Fuenets regarding her depression. Attempted to locate the nurse for the patient to speak to however the patient hung up. documented in this encounter Plan of Treatment Date Type Specialty Care Team Description 01/18/2021 Office Visit Obstetrics & Gynecology Malgorzata Sorto PA-C [address] [place] [phone] Health Maintenance Due Date Last Done Comments WELL CARE VISIT: 12-21 YEARS 2012 (yearly) HPV VACCINES (1 - 2-dose 11/09/2020 Postpon [...] Vaccines (3 04/24/2030 04/24/2020, - Td) 04/29/2004 INFLUENZA VACCINE Completed 07/20/2020 MENINGOCOCCAL VACCINE Aged Out No longer eligible based on patient's age to complete this to pic PNEUMOCOCCAL 0-64 YEARS Aged Out No longe r eligible based COMBINED SERIES on patient's age to complete this to pic documented as of this encounter Results Not on filedocumented in this encounter Insurance Payer Benefit Plan / Subscriber ID Effective Phone Address T ype Group [facility] [id number] 2020-Prese P.O. BOX Medic aid HEALTH CHOICE - HEALTH CHOICE nt [id number] 1 MANAGED MEDICAID [place], [place] [phone] documented as of this encounter Advance Directives Name Relationship Healthcare Agent Communication Relationship Sabrina Pack Health Care Agent
--- OUTSIDE RECORDS SUMMARY | 2020-09-10 09:06 | XMS REPORT | Summary of Care ---
:2000 Author Organization [facility] Address [address] [place] [address] Care Team Providers Name Role Phone Umm Faith Primary Care Provider Reason for Visit Reason Comments Error Encounter Details Date Type Department Care Team Description 08/17/2020 Telemedicine Visit [facility] Women's Malgorzata Sorto ERRONEOUS Healthcare- DEENA-C ENCOUNTER--DISREGAR [address] D (Primary Dx) [address] [facility], [address] [address] [phone] Allergies No Known Allergiesdocumented as of this encounter (statuses as of 08/17/2020) Medications Medication Sig Dispensed Refills Start Date [...] as of this encounter (statuses as of 08/17/2020) Active Problems Problem Noted Date Maternal varicella, non-immune 11/20/2019 Overview: Address in . documented as of this encounter (statuses as of 08/17/2020) Resolved Problems Problem Noted Date Resolved Date [...] as of this encounter (statuses as of 08/17/2020) Immunizations Name Administration Dates Next Due DTAP [...] been in contact with No / Unsure 07/20/2020 4:25 PM CDT someone who was confirmed or suspected to have Coronavirus / COVID-19? documented as of this encounter Last Filed Vital Signs Not on filedocumented in this encounter Progress Notes Malgorzata Sorto PA-C - 08/17/2020 3:30 PM CSTUnable to get a hold of patient. [employer] documented in this encounter Plan of Treatment Date Type Specialty Care Team Description 01/18/2021 Office Visit Obstetrics & Gynecology Malgorzata Sorto PA-C [address] [place] [phone] Health Maintenance Due Date Last Done [...] filedocumented in this encounter Visit Diagnoses Diagnosis ERRONEOUS ENCOUNTER--DISREGARD - Primary documented in this encounter Insurance Payer Benefit Plan / Subscriber ID Effective Phone Address [facility] [id number] 2020-Prese P.O. BOX Medic aid HEALTH CHOICE - HEALTH CHOICE nt [id number] 1 MANAGED MEDICAID [place], [place] [phone] documented as of this encounter Advance Directives Name Relationship Healthcare Agent Communication Relationship Sabrina Brooke Father Health Care Agent
--- OUTSIDE RECORDS SUMMARY | 2020-09-10 09:06 | XMS REPORT | Summary of Care ---
:2000 Author Organization [facility] Address [address] [place] [id number] Care Team Providers Name Role Phone Umm Faith Primary Care Provider Reason for Referral (Routine) Status Reason Specialty Diagnoses / Referred By Referred To Procedures Contact Contact Pending Review Location Psychiatry Diagnoses Generalized anxiety disorder depression Cam Sorto Procedures CONSULT/REFERRAL PSYCHIATRY ADULT KENZIE Mcgarry [address] [place] [address] [address] [place] [address] Reason for Visit Reason Comments Care VACCINES Flu Shot / Declined VZV Encounter Details Date Type Department Care Team Description 07/20/2020 Routine [facility] Women's Malgorzata Sorto, care and examination (Primary Dx); Visit Radha ESPINO control counseling; [address] Initiation of OCP (BCP); [address] [place] [address] Needs flu shot; Drive, [address] Generalized anxiety disorder; [place], [place] depr ession [id number] Allergies No Known Allergiesdocumented as of this encounter (statuses as of 07/20/2020) Medications Medication Sig Dispensed Refills Start Date [...] as of this encounter (statuses as of 07/20/2020) Active Problems Problem Noted Date Anemia, antepartum, third trimester 06/15/2020 Maternal varicella, non-immune 11/20/2019 Overview: Address in . documented as of this encounter (statuses as of 07/20/2020) Resolved Problems Problem Noted Date Resolved Date Liveborn infant, of giang , born in hospital by 06/16/2020 07/20/2020 vaginal delivery 37 weeks gestation of 06/15/2020 07/20/20 20 Severe pre-eclampsia in third trimester 06/15/2020 07/20/2020 Depression during in third trimester 05/22/2020 07/20/2020 Rash and nonspecific skin eruption 02/26/202006/15 High-risk in third trimester 12/18/2019 1 Gonorrhea affecting in first trimester 11/26/2019 02/14/2020 documented as of this encounter (statuses as of 07/20/2020) Immunizations Name Administration Dates Next Due DTAP [...] Sign Reading Time Taken Comments Blood Pressure 109/71 07/20/2020 4:44 PM CDT Pulse 86 07/20/2020 4:44 PM CDT Temperature 36.9 C (98.5 F) 07/20/2020 4:44 PM CDT Respiratory Rate 18 07/20/2020 4:44 PM CDT Oxygen Saturation - - Inhaled Oxygen Concentration - - Weight 63 kg (139 lb) 07/20/2020 4:44 PM CDT Height 157.5 cm (5' 2") 07/20/2020 4:44 PM CDT Body Mass Index 25.42 07/20/2020 4:44 PM CDT documented in this encounter Patient Instructions Patient InstructionsJerry Palmer - 07/20/2020 4:30 PM CDT Patient Education What Vaccines Should You and Your Family Have? Many diseases can be prevented by getting vaccinated against them. The Centers for Disease Control and Prevention (CDC) has vaccination schedules that you and your family can follow to make sure you are protected. Getting vaccines when advised may help prevent the spread of these diseases. Specific vaccine recommendations vary by your age, where you live, and the risk factors you may have. Manybasic vaccines are often given in combination to reduce the number of injections needed. The following diseases may be prevented by following the CDC guidelines for vaccines: Diphtheria.This is a serious disease caused by a poison (toxin) made by bacteria. Itmay damage the heart, lungs and nerves. It can be fatal. Haemophilus influenzae type B (Hib).This is a bacterial infection that leads to serious conditions such as meningitis, pneumonia, and epiglottitis. Hepatitis A.This is a viral disease of the liver. You can get it by eating food or drinking water contaminated with feces. Or you can get it by coming in contact with someone who has the infection. Symptoms may include upset stomach, extreme tiredness (fatigue), and yellowing of the skin (jaundice). But some people have no symptoms. This is especially true in younger children. Hepatitis B (hep B).This type of hepatitis is spread through blood and other body fluids. It isalso spread in childbirth from an infected mother. Symptoms may include fever, fatigue, digestive problems, joint pain, and yellowing of the skin and eyes. Symptoms can last from weeks to months. Hepati tis B is more severe than hepatitis A because hepatitis B can become long-term (chronic). This can lead to cirrhosis and liver cancer. HPV.This is a very common sexually transmitted disease. It can cause genital warts.It can lead to cervical cancer and other less common but serious cancers. Flu (influenza).This is a highly contagiousdisease that affectsyour lungs. Itiscaused by different strains of flu viruses. The flu causes mild to severe illness. It may lead to pneumonia and can be deadly in some cases. Measles (rubeola).Measles is a highly contagious viral infection. It causes fever, cough, runnynose, and a rash all over the body. Meningococcal meningitis.This is a severe bacterial infection of the membranes that cover the brain and spinal cord(meninges). It can be life- threatening. Symptoms can include fever, headache, astiff neck, nausea, and mental confusion. Mumps.Mumps is a virus that causes a painfulinfectionin thesalivary or parotid glands. Itsometimes affects other areas of the body. In rare cases, it can cause sterility in men. Pertussis (whooping cough).This is a highly contagious respiratory disease. Itcauses severe, high-pitched coughing spasms that continue for long periods. Pneumococcal pneumonia.This is a serious lung infection caused bythe bacteria Streptococcus pneumoniae. Polio.This is a highly infectious viral disease that affects the nervous system. Symptoms may include a flu-like illness and stiffness in the neck and back, with pain in the arms and legs. In the worst case, the infection can cause lifelong (permanent) paralysis, often in the legs. Rotavirus.This is a highly contagious virus. It is the leading cause of severe diarrhea in children. Rubella (Nepali measles).This is a contagious disease caused by a virus.Symptoms includea rash and fever.It can cause defects if a woman who is catches it. Tetanus (lockjaw).This is a disease of the nervous system caused bythe bacteria Clostridium tetani. Symptomsinclude painful muscle contractions. These contractions can progress to seizure-likemotion and nervous system disorders. Varicella (chickenpox).This is a contagious disease caused by the varicella-zoster virus. It causes a skin rash. It is most common in children. Shingles (zoster).This is a painful skin rash with blisters caused by the varicella zoster virus. It isthe samevirus that causes chickenpox. After a chickenpox infection, the virus remain for life in nerve cells. It can come back years later as shingles. [employer] last reviewed this educational content on 12/14/201819995695-1715 [employer], [employer]. [address] [place] [address], [place] [address]. All rights reserved. This information is not intended as a substitute for professional medical care. Always follow your healthcare professional's instructions. Patient Education How Control Works control prevents by preventing conception. Some methods prevent an egg from maturing. Some keep the sperm and egg from meeting. And some methods work in both ways. Preventing ovulation Certain hormones help prevent an egg from maturing and being released. Hormone methods include: control pills Skin patches Contraceptive vaginal rings Injections Preventing sperm and egg from meeting Methods that prevent the sperm and egg from joining include: Barrier methods, such as the condom, the diaphragm, and the cervical cap Spermicide The IUD (intrauterine device) Sterilization Natural family planning Some types of hormone methods [employer] last reviewed this educational content on 12/14/201619992466-7032 [employer]. [address] [place] [address]. All rights reserved. This information is not intended as a substitute for professional medical care. Always follow your healthcare professional's instructions. Patient Education Control Methods control methods are used to help prevent .There are many different methods to choose from. Talk to your healthcare provider about which method is right for you.Be sure to ask your provider about the effectiveness of each method. Also ask about the benefits, risks, and side effects of each method. Hormones Some control methods work by releasing hormones such as progestin and estrogen. These methods include hormone implants, hormone shots, the vaginal ring, the patch,and control pills. They all work by stopping ovulation (release of the egg from the ovary). The implant is a small device that needs to be placed in the upper arm by a trained healthcare provider. It works for up to3 years.Hormone injections must be repeated every 3 months.The vaginal ring must be replaced monthly (it can be removed during the fourth week of each cycle). The patch must be replaced weekly (it is not worn during the fourth week of each cycle). control pills must be taken every day. All of these met hods are effective and can be stopped at any time. Intrauterine device (IUD) An IUD is a small, T-shaped device. It must be placed in the uterus by a trained healthcare provider.There are different types of IUDs available. They work by causing changes in the uterus that make it harder for sperm to reach the egg. Depending on the type of IUD you have, it may work for several years or longer. The IUD is a reversible control method. This means it can be removed at any time. Condom A condom is a sheath that forms a thin barrier between the penis and the vagina.It helps prevent by keeping sperm from entering the vagina. When latex condoms are used, they have the added benefit of protecting against most STIs (sexually transmitted infections).Condoms are used each time there is sexual intercourse and should be discarded after each use. Ask your healthcare provider about the different types of condoms available. These include both the male condom and female condom. Spermicide Spermicides come as foams, jellies, creams, suppositories, andtablets.They help prevent by killing sperm. When used alone they are not that reliable. They work best when combined with other control methods such as diaphragms and cervical caps. Sponge, diaphragm, and cervical cap All of these methods help prevent by covering the opening of the uterus (cervix). This prevents sperm from passing through. The sponge contains spermicide. It can be bought over the counter. The sponge must be left in place for at least 6 hours after the last time you have sex.However, it should not stay in place for morethan 24 hours. It should be discarded after it is used. Thediaphragmand cervical cap must be fitted and prescribed by your healthcare provider. Both areused with spermicide.The diaphragm must be left in place for at least 6 hours after sex. However, it should not stay in place for more than 24 hours.It can be washed and reused. The cervical cap must be left in place for at least 6 hours after sex. However, it should not stay in place for more than 48 hours. It can be washed and reused. Withdrawal method This is when the man pulls his penis out of the vagina just before ejaculation (coming). This lowers the amount of sperm entering the vagina. Be aware that fluids released just before ejaculationoften still contain some sperm, so this method is not as reliable as certain other methods. Rhythm method This method requires that you know when in your menstrual cycle you are likely to become . Then, you avoid sex during those days. This requires careful planning and good discipline. Your healthcare provider can explain more about how this works. Tubal ligation and vasectomy These are surgical methods to prevent . Tubal ligation is an option for women. The fallopian tubes are blocked or cut (ligated). This keeps the egg from passing into the uterus or sperm from reaching the egg. Vasectomy is an option for men. The tubes that normally carry sperm to the penis areeither closed or blocked. Both tubal ligation and vasectomy are permanent control methods. This means reversal is either not possible or unlikely to work.They are good choices for women and menwho know that they do not want to have children in the future. [employer] last reviewed this educational content on 08/16/201719998989-3665 [employer]. [address] [place] [address]. All rights reserved. This information is not intended as a substitute for professional medical care. Always follow your healthcare professional's instructions. documented in this encounter Progress Notes Malgorzata Sorto PA-C - 07/20/2020 4:30 PM CDT Renita Brooke is a 20 year old female s/p vaginal delivery on 06/16/2020 presents for ppvisit. /bottlefeeding without issues. Reports blues or depressive symptoms. Reports intercourse 1 wk ago and used condoms. Stopped bleeding. Past Medical History: Diagnosis Date Anemia, antepartum, third trimester 06/15/2020 Depression during in third trimester 05/22/2020 Gestational hypertension, third trimester 06/15/2020 Gonorrhea affecting in first trimester 11/26/2019 Past Surgical History: Procedure Laterality Date INSERT CERVICAL DILATOR 06/15/2020 No Known Allergies Current Outpatient Medications on File Prior to Visit Medication Sig Dispense Refill docusate calcium 240 mg capsule Take 1 capsule by mouth once daily as needed for Constipation. 60 capsule 1 ferrous sulfate 325 mg (65 mg iron) tablet Take 1 tablet by mouth 2 (two) times daily. 60 tablet2 ibuprofen 600 mg tablet Take 1 tablet by mouth every 6 (six) hours as needed (Pain). Take with food or milk. 30 tablet 1 NIFEdipine ER 30 mg tablet Take 1 tablet by mouth every 24 (twenty-four) hours. 30 tablet 0 vitamin w/FA tablet Take 1 tablet by mouth daily. 100 tablet 3 No current facility-administered medications on file prior to visit. Family History Problem Relation Age of Onset [...] Psychiatry NoFHx Other - see comments NoFHx Social History Socioeconomic History Marital status: Single [...] file Gets together: Not on file Attends protestant service: Not on file Active member of [...] or past physical, sexual or emotional abuse. Nondenominational preference: Shinto No cats in the home. BP: (109)/(71) Temp: [36.9 C (98.5 F)] Temp source: Oral (07/20 1644) Pulse: [86] Resp: [18] SpO2: -- Height: [5' 2" (157.5 cm)] Weight: [139 lb (63 kg)] BMI (calculated): [25.42] NAD, EPDS score 24, denies SI/HI Breathing unlabored Breasts: No engorgement Abdomen: No tenderness or masses. No hernia. Pelvic: Perineum well healed Bimanual: Uterus well involuted, nontender. Adnexa without tenderness or masses A/P: Pelvic rest x 2 weeks. Discussed contraception as below: Return for [facility] exam in 6 months Call for any questions or concerns care and examination (primary encounter diagnosis) Follow-up in 6 months for WWE PP depression: Refilled zoloft. Patient reports was not taking it consistently. Referral made for counseling at [facility]. FOLLOW-UP in 4 wks for FOLLOW-UP on EPDS via telehealth VZV- NI. Offered patient varicella vaccine. Patient declines. Flu vaccine given today. control counseling Also counseled the patient about her options for control. We discussed risks and benefits of condoms, diaphragms along with control pills, the control patch and the Nuva ring. I then discussed risks and benefits of the Depo Provera injection, the various IUDs (Tita, Mirena, Paraguard) and the Nexplanon implant. After counseling, the patient is most interested in OCPs. Proper use was discussed and reviewed. I stressed the importance of using condoms regardless of her contraceptive method to assist in prevention of sexually transmitted infections. I discussed that no control method is 100% in preventing except abstinence. The patient expressed understanding. Patient denies self or family history of thromboembolic disease or thrombophilia, migraine headache. I counseled patient regarding use of oral contraceptives. There are combined oral contraceptive, which has both estrogen and progestin, and there is progestin only oral contraceptive. With typical us e, 9 out 100 women get in the first year and with perfect use 0.3 out of 100 women get in the first year according to ACOG Practice Bulletin. Risks include but not limited to increase risk of thromboembolic disease, headache, weight gain, mood lability, and breast cancer. Decrease risks of ovarian cancer, colon cancer, and endometrial cancer. Oral contraceptive may decrease milk supply. Alternatives reviewed include patch, ring, Depo-Provera, Nexplanon, and IUD. Advise using condoms for STDs prevention. . Malgorzata Sorto PA-C 07/20/2020 4:30 PM documented in this encounter Plan of Treatment Health [...] on patient's age to complete this to [facility] PNEUMOCOCCAL 0-64 YEARS Aged Out No longe r eligible based COMBINED SERIES on patient's age to complete this to pic documented as of this encounter Procedures Procedure Name Priority Date/Time Associated Diagnosis Comme nts FLU VACC Routine 07/20/2020 4:46 PM care and ([id number]), 6+ CDT examination MONTHS, IM, QUAD Needs flu shot POCT TEST Routine 07/20/2020 care and R esults for this examination procedure are in Initiation of OCP the result s (BCP) section. documented in this encounter Results POCT TEST (07/20/2020) Pathologist Sig nature POCT PREG Negative On board controls acceptable Yes with C Line POCT PREG LOT # POCT PREG TEST DATE Specimen Urine - URINE, CLEAN CATCH documented in this encounter Visit Diagnoses Diagnosis care and examination - Primar y Routine follow-up control counseling General counseling for initiation of oth er contraceptive measures Initiation of OCP (BCP) General counseling for prescription of o ral contraceptives Needs flu shot Need for prophylactic vaccination and in oculation against influenza Generalized anxiety disorder depression Mental disorders of mother, complicating , childbirth, or the puerperium, unspecified as to episode of care documented in this encounter Insurance Payer Benefit Plan / Subscriber ID Effective Phone Address T ype Group Dates [facility] [id number] 2020-Archana GRAY Medic aid HEALTH CHO[place] [id number] 1 [facility] MEDICAID [place], [place] [phone] documented as of this encounter Advance Directives Name Relationship Healthcare Agent Communication Relationship Sabrina Brooke Father Health Care Agent
--- OUTSIDE RECORDS SUMMARY | 2020-09-10 09:06 | XMS REPORT | Summary of Care ---
:2000 Author Organization [facility] Address [address] [place] [id number] Care Team Providers Name Role Phone Umm Faith Primary Care Provider Reason for Visit Reason Comments Error Encounter Details Date Type Department Care Team Description 09/03/2020 Telemedicine Visit [facility] Macario Malgorzata , depression (Primary Dx); Healthcare- PA-C Generalized anxiety disorder [address], [address] [phone] Allergies No Known Allergiesdocumented as of this [...] 06/15/2020 07/20/20 20 Anemia, antepartum, third trimester 06/15/202011/2019 Severe pre-eclampsia in third trimester 06/15/2020 07/20/2020 [...] Signs Not on filedocumented in this encounter Patient Instructions Patient InstructionsMalgorzata Sorto PA-C - 09/03/2020 10:45 AM CST Patient Education Understanding Blues Having a baby is a happy, exciting time in a womans life. But it can also be tiring and overwhelming. Many new moms are surprised to find they feel sad or mason when adjusting to life with a . But these feelings are very common. In most cases, they only last for 1 or 2 weeks after you give . This is called the baby blues or blues. What are the blues? Youve just had a baby, and youre overjoyed. But like many new moms, you may also feel sad, exhausted, anxious, and mason. You may cry a lot. If you have these and other mild symptoms of depression, its likely you have blues. And youre not alone. About 4 in 5 new moms [address] soon after giving . blues is a condition that comes and then goes away quickly. Symptoms often occur 1 or 2 days after giving . They may feel very intense for several days. But they go away on their own inabout 2 weeks. If you still feel this way after more than 2 weeks, or if at any time you start to feel worse, call your healthcare provider. You could have a more serious mood disorder called depression. This is treated with medicine and talk therapy (counseling or psychotherapy). What causes the blues? Experts dont know the exact cause of blues. Its likely linked to hormone level changes that occur during and . During that time, your levels of estrogen and progesteronedrop severely. This can trigger feelings of depression. But other things may contribute as well. Having a baby is a major life change. And it can be a very stressful time. Caring for a new baby is emotionally and physically draining. You may be tired from lack of sleep. You may feel overwhelmed or lonely, or have trouble getting into a routine with your baby. All of these things can affect how you cope during this busy and emotional time. Symptoms of the blues Symptoms can include: Sadness Being grouchy Crying Mood changes Trouble sleeping Lack of energy (fatigue) Not able to focus Anxiety Diagnosing the blues There is no standard diagnosis for this condition. If you have 3 or 4 of the symptoms listed above after giving , you likely have blues. Call your healthcare provider right away if your symptoms last for more than 2 weeks, or if your symptoms start to get worse. Your provider will evaluate you to make sure you dont have depression. Managing the blues The blues generally go away without treatment. The best thing you can do to reduce your symptoms is to take care of yourself. To get the help and support you need, its important to: Be open about your feelings. Talk with your partner or other people close to you about how you are feeling. Dont keep things to yourself. Get enough sleep. It may not be possible to sleep through the night right now. But rest whenever your baby naps. Dont use that time to do chores. Eat healthy foods. Eating a healthy diet can help you feel better, and help keep your mood more balanced. Ask for and accept help. Let friends and family help out with meals, shopping, laundry, or watching other children. Find other new moms to connect with. Check online to find a group for new moms in your area. Or ask your healthcare provider for suggestions. Is it the baby blues or depression? Its normal to feel weepy, overwhelmed, and mason after having a baby. But if your symptoms last longer than 2 weeks, or they get worse, call your healthcare provider. He or she will evaluate you to see if you have a more serious condition called depression. Its important to get treated for that right away. Phantom last reviewed this educational content on 02/14/202019990170-2243 [employer]. All rights reserved. This information is not intended as a substitute for professional medical care. Always follow your healthcare professional's instructions. Patient Education Understanding Anxiety Disorders Almost everyone gets nervous now and then. Its normal to have knots in your stomach before a test. Or for your heart to beat fast on a first date. But an anxiety disorder is much more than a case ofnerves. In fact, its symptoms may be overwhelming. But treatment can ease many of these symptoms. Talking with your healthcare provider is the first step. What are anxiety disorders? An anxiety disorder causes very strong feelings of panic and fear. These feelings may occur for no clear reason. And they tend to happen again and again. They may prevent you from coping with life. They may cause you great distress. You may then stay away from anything that triggers your fear. In extreme cases, you may never leave the house. Anxiety disorders may cause other symptoms, such as: Obsessive thoughts that are unwanted and you cant control Constant nightmares or painful thoughts of the past Upset stomach, sweating, and muscle tension Trouble sleeping or focusing What causes anxiety disorders? Anxiety disorders tend to run in families. For some people, childhood abuse or neglect may play a role. For others, stressful life events or trauma may trigger these disorders. Anxiety can trigger low self-esteem and poor coping skills. Types of anxiety disorders Panic disorder. This causes a very strong fear of being in danger. Phobias. These are extreme fears of certain things, places, or events. Obsessive-compulsive disorder (OCD). This makes you have unwanted thoughts and urges. You also may do certain things over and over. Posttraumatic stress disorder (PTSD). This occurs in people who have been through a terrible ordeal. It can cause nightmares and flashbacks about the event. Generalized anxiety disorder. This causes constant worry. It can greatly disrupt your life. Getting better You may believe that nothing can help you. Or, you might fear what others may think. But most anxiety symptoms can be eased. Having an anxiety disorder is nothing to be ashamed of. Most people do best with treatment that combines medicine and individual and group therapy. These arent cures. But they can help you live a healthier life. Phantom lisha reviewed this educational content on 12/15/201919994198-5413 [employer]. All rights reserved. This information is not intended as a substitute for professional medical care. Always follow your healthcare professional's instructions. Patient Education Warning Signs of Suicide and What You Can Do If you think a person could be suicidal, ask, "Have you thought about suicide?" Asking won't make itmore likely that they will try to hurt themselves. In fact, most people with suicidal thoughts say they are relieved when the question is asked. If they say yes, they may already have a plan for how and when they will attempt it. Find out as much as you can. The more detailed the plan, and the easier it is to carry out, the more danger the person is in right now. Know the warning signs The warning signs for suicide include: Threats or talk of suicide Talking about and dying Changing eating or sleeping habits (for instance, not sleeping or sleeping all of the time) Feeling hopeless Suddenly buying a gun or other weapon Saying things such as "Soon, I won't be a problem" or "Nothing matters" Giving away things they own, making out a will, or planning their Suddenly being happy or calm after being depressed Things that put a person at a higher risk of attempting suicide include: A history of suicide in the person's family Past suicide attempts Alcohol and drug use, along with impulsive behaviors Having a diagnosed mood disorder such as depression or bipolar disorder History of trauma or abuse including bullying Major losses such as a divorce, of a loved one, money problems, or legal problems Having access to a lethal weapon (such as guns in the home) Long-term (chronic) physical illnesses, including chronic pain Being around others with suicidal behavior Get help Don't try to handle this alone. You can be the most help by getting the person to a trained professional. Suicidal thinking may be a sign of depression. This is a serious but treatable illness. In an emergencycall 911 Don't leave the person alone. Anyone who is at imminent risk of suicide needs psychiatric services right away. The person must be constantly watched, and never left out of sight. Call 911 or a 24-hour suicide crisis hotline. You can search for this online. You can also take the person to the nearest hospital emergency room. Don't keep it a secret and don't wait Call a mental health clinic or a licensed mental health professional in your area right away. This may be a psychiatrist, clinical psychologist, psychiatric or licensed clinical social services coordinator, marriageand family counselor, or clergy. If you don't know how to contact such professionals and there is animmediate risk, call 911. Tell them you need help for a person who is thinking about suicide. Resources National Suicide Prevention Zhuwiihd743-703-4042 (625-532-XRTG)www.suicidepreventionlifeline.org National Suicide Laolfuq006-724-3079 (800-SUICIDE) National [place] of Mental Xbrmyx186-447-1473dcs.[facility].nih.gov National [place] on Mental Ntunbgv523-138-7122btg.dylon.org Mental Health Chyfyob747-187-6361twc.akha.org Mimi last reviewed this educational content on 10/16/201919991267-1797 [employer]. All rights reserved. This information is not intended as a substitute for professional medical care. Always follow your healthcare professional's instructions. Patient Education Know the Symptoms of Depression Everyone feels down at times. The blues are a natural part of life. But an unhappy period thats intense or lasts for more than a few weeks is different. It can be a sign of depression.Depression is a serious illness. It's not a sign of weakness. It's not a character flaw. And it's not something you can just snap out of. Most people with depression need treatment to get better. Depression can disrupt the lives of family and friends. If you know someone who may be depressed, find out what you ana to help. Symptoms of depression People who are depressed may: Feel unhappy, sad, blue, down, or miserable almost every day Feel helpless, hopeless, or worthless Lose interest in hobbies, friends, and activities that used to give pleasure Not sleep well or sleep too much Gain or lose weight Feel low on energy or always tired Have a hard time focusing or making decisions Lose interest in sex Have physical symptoms, such as stomachaches, headaches, or backaches Know the serious signs Never ignore a person's comments about suicide. Or behaviors that can lead to self-harm. Warning signs for suicide include: Threats or talk of suicide. Talk of harming themselves or others. Saying things such as I wont be a problem much longer or Nothing matters. Giving away their things. Or making a will or plans. Buying a gun or other weapon. Sudden, unexplained cheerfulness or calm after a period of depression. If you see any of these signs, get help right away. Call a healthcare provider, mental health clinic, or suicide hotline. Ask what you should do. In an emergency, call 911. Resources: National Institutes of Mental Fdznul700-170-7905xmj.[facility].nih.gov National [place] on Mental Qrddfnk253-379-4950iik.dylon.org Mental Health Nuumakp297-360-9285qkg.[facility].org National Suicide Hwrygki506-119-6087 (800-SUICIDE) National Suicide Prevention Xyrdxfdw350-554-2278 (957-903-EHVT)www.suicidepreventionlifeline.org Mimi last reviewed this educational content on 01/14/201919999811-0999 [employer]. All rights reserved. This information is not intended as a substitute for professional medical care. Always follow your healthcare professional's instructions. Patient Education COVID-19 and the Flu: What's the Difference? Flu season happens every year in the [place] in the fall and winter. COVID-19 has similar symptoms. Howdo you know if someone has the flu or COVID-19? What are the differences between these 2 illnesses? Can you get both at the same time? See how they compare below. Can you get the flu and COVID-19 at the same time? Yes, medical experts say that you can have both infections at the same time. Flu (influenza) COVID-19 Cause Different types of flu viruses that spread each year A type of coronavirus called SARS-CoV-2 How it spreads It spreads from person to person through coughing, sneezing, talking, or touching infected surfaces and touching your eyes, nose, or mouth It spreads from person to person through coughing, sneezing, talking, or touching infected surfaces and touching your eyes, nose, or mouth. Current research shows that it spreads more easily than the flu, but not as easily as measles. Prevention Wash your hands often, stay home if you feel ill, limit contact with other people, and avoid people who are sick. Wash your hands often, stay home if you feel ill, limit contact with other people, and avoid people who are sick. Wear a face mask when around other people. Stay 6 feet or more away from others in public places. Follow instructions in your area for avoiding crowds and events. Vaccine Different types of flu vaccines are available each year. Getting a vaccine can help prevent or lessen symptoms of the flu. Talk with your healthcare provider about the type of vaccine thats best for you and when to get it. If you are sick with any infection, get the flu vaccine as soon as you recover. No vaccine is available yet. [employer] are testing vaccines that may be used in the future. Symptoms They can be mild to severe, and can include: Fever Chills Body aches Cough Sore throat Stuffy or runny nose Headache Tiredness Vomiting and diarrhea, more often in children Some people have no symptoms. In other people, theycan be mild to severe, and can include: Fever Chills Body aches Cough Sore throat Stuffy or runny nose Headache Tiredness Feeling short of breath New loss of taste or smell Nausea Vomiting Diarrhea When symptoms start Usually 1 to 4 days after infection Usually 5 days after infection, but can start 2 to 14 days after infection How long a person is contagious A person can spread the flu at least 1 day before symptoms start. Older kids and adults are most contagious for the first 3 to 4 days of symptoms. They can spread the virus up to 7 days after symptoms start. Babies and people with weak immune systems can be contagious longer Researchers are still learning about this. Its possible for a person to spread the virus about 2 days before symptoms start. They can spread the virus up to 10 days after symptoms start. Peoplewith no symptoms (asymptomatic) or who had symptoms that have gone away can still spread the virus for at least 10 days after testing positive for COVID-19 with a viral test. Testing There are different kinds of rapid flu tests. The tests are done by wiping a swab inside your nose or throat. The results can come back in 10 minutes to several hours. A saliva-based test is being developed. In some areas, a single test from the [facility] for both flu and SARS CoV-2 may be available. This test isused to help public health experts track infection rates. It wont replace separate flu and COVID-19 tests. There are different kinds of tests for COVID-19. Some check for active infection. Others check for antibodies in the blood that are a sign of a past COVID-19 infection. In some areas, a single test from the [facility] for both flu and SARS CoV-2 may be available. This test isused to help public health experts track infection rates. It wont replace separate flu and COVID-19 tests. Treatment The flu may be treated with antiviral medicine. This can help ease symptoms. It can also shorten the amount of time youre sick. These medicines need to be taken as soon as possible when you start to feel sick. Antibiotics are not used because they dont work on the flu virus. But antibiotics may be used to prevent or treat an infection by bacteria that can sometimes happen after havingthe flu. Other treatment for the flu includes care to ease symptoms. This includes rest, drinking plenty of fluids, and pain and fever medicine as needed. In severe cases, you may need time in the hospital to treat complications from flu. There are no antivirals currently approved to treat COVID-19. But many kinds of treatments are being tested by researchers. Antibiotics are not used because they dont work on the virus that causes COVID-19. But antibiotics may be used to prevent or treat an infection by bacteria that may happen after getting COVID-19. Other treatment for COVID-19 include care to ease symptoms. This includes rest, drinking plenty of fluids, and pain and fever medicine as needed. In severe cases, you may need time in the hospital for supplemental oxygen, IV fluids, and other care. Possible complications Can include: Bacterial infections Ear infection Inflammation of muscle tissues (myositis or rhabdomyolysis) Inflammation of the brain (encephalitis) Inflammation of the heart (myocarditis) Multiple-organ failure Pneumonia Sepsis Sinus infection Worsening of chronic conditions of the lungs, heart, and nervous system Worsening of diabetes Can include: Acute respiratory distress syndrome (ARDS) Bacterial infections Heart attack Inflammation of muscle tissues (myositis or rhabdomyolysis) Inflammation of the brain (encephalitis) Inflammation of the heart (myocarditis) Multiple-organ failure Pneumonia Respiratory failure Sepsis Stroke Worsening of chronic conditions of the lungs, heart, and nervous system Worsening of diabetes Multisystem inflammatory syndrome in children (MIS-C), a rare complication that causes inflammation of blood vessels and organs Why getting a flu vaccine is important now A flu vaccine doesnt protect you from COVID-19. But it can reduce your risk of serious illness ordeath from the flu. The flu vaccine may help keep you out of the hospital. This is extra important while the COVID-19 pandemic is using a lot of medical resources. Phantom last reviewed this educational content on 05/16/202019995297-2564 [employer]. All rights reserved. This information is not intended as a substitute for professional medical care. Always follow your healthcare professional's instructions. RSIDE WORKER documented in this encounter Progress Notes Malgorzata Sorto PA-C - 09/03/2020 10:45 AM CSTCalled patient, no answer. Davis Waldron MA - 09/03/2020 10:45 AM [id number]: Voicemail left for patient to return call to complete telehealth visit. DAVIS MAYA MA 09/03/2020 11:57 AM Perla Francis RN - 09/03/2020 10:45 AM [id number]: RN called patient to do EPDS, call disconnected. 1110: RN called patient, no answer, mailbox full, unable to leave message. Perla Oliveros RN 09/03/2020 11:11 AM [id number]: RN called patient, no answer, mailbox full, unable to leave message. Perla Oliveros RN 09/03/2020 11:32 AM RSIDE WORKER documented in this encounter Plan of Treatment Date Type Specialty Care Team Description 01/18/2021 Office Visit Obstetrics & Gynecology Malgorzata Sorto PA-C [address] [place], [place] [phone] Health Maintenance Due Date Last Done [...] filedocumented in this encounter Visit Diagnoses Diagnosis depression - Primary Mental disorders of mother, complicating , childbirth, or the puerperium, unspecified as to episode of care Generalized anxiety disorder documented in this encounter Insurance Payer Benefit Plan / Subscriber ID Effective Phone Address T [facility] [id number] 2020-Prese [address] Medic aid HEALTH CHOICE - HEALTH [place] [id number] 1 MANAGED MEDICAID [place], [place] [phone] documented as of this encounter Advance Directives Name Relationship Healthcare Agent Communication Relationship Sabrina Brooke Father Health Care Agent
--- OUTSIDE RECORDS SUMMARY | 2020-09-10 09:06 | XMS REPORT | Summary of Care ---
:2000 Author Organization [facility] Address [address] [place] [id number] Care Team Providers Name Role Phone Umm Faith Primary Care Provider Encounter Details Date Type Department Care Team Description 07/20/2020 Orders Only [facility] Doctor Unassigned, No [facility] Name [place] [phone] [place] [id number] Allergies No Known Allergiesdocumented as of this encounter (statuses as of 07/30/2020) Medications Medication Sig Dispensed Refills Start Date [...] as of this encounter (statuses as of 07/30/2020) Active Problems Problem Noted Date Anemia, antepartum, third trimester 06/15/2020 Maternal varicella, non-immune 11/20/2019 Overview: Address in . documented as of this encounter (statuses as of 07/30/2020) Resolved Problems Problem Noted Date Resolved Date [...] as of this encounter (statuses as of 07/30/2020) Immunizations Name Administration Dates Next Due DTAP [...] Treatment Date Type Specialty Care Team Description 08/17/2020 Telemedicine Visit Obstetrics & Gynecology Majo Sorto PA-C [address] [phone] 01/18/2021 Office Visit Obstetrics & Gynecology Malgorzata Sorto PA-C [address] [address] Health Maintenance Due Date Last Done [...] Name Priority Date/Time Associated Diagnosis Comme nts CONSENT FOR ORAL Routine 07/20/2020 12:01 AM CONTRACEPTIVES CDT documented in this encounter Results Not on filedocumented in this encounter Insurance Payer Benefit Plan / Subscriber ID Effective Phone Address [facility] [id number] 2020-Prese [address] Medic aid HEALTH CHOICE - HEALTH CHOICE nt [id number] 1 MANAGED MEDICAID [place], [place] [phone] documented as of this encounter Advance Directives Name Relationship Healthcare Agent Communication Relationship Sabrina Brooke [facility] Health Care Agent
[2020-09-10 09:56] LABS: Urine Blood NEGATIVE (NEG); Urine Glucose NEGATIVE (NEG); Urine Protein TRACE (NEG); Urine pH 6.5 (5.0-7.0)
[2020-09-10] MEDS ORDERED: WATER FOR INJ,STERILE 10 ML ONE (11:03)
[2020-09-10] MEDS ORDERED: AZITHROMYCIN 250 MG TAB ONE (11:03)
[2020-09-10] MEDS ORDERED: CEFTRIAXONE 250 MG/VIAL ONE (11:03)
--- NOTE | 2020-09-10 11:11 | EDPHYS ---
Physician Documentation [facility] Name: Renita Brooke Age: 20 yrs Sex: Female : 2000 Arrival Date: 09/10/2020 Time: 09:02 Bed 19 Private MD: ED Physician Cas Lozano HPI: 09/10 09:35 This 20 yrs old Female presents to ER via Ambulatory with complaints of Skin cp Problem, Vaginal Discharge, Urinary Frequency. 09:35 The patient presents with a possible exposure to a sexually transmitted disease, cp suspects partner may have cheated, urinary symptoms, frequency, vaginal discharge. 09:35 Associated signs and symptoms: Pertinent negatives: fever, vaginal bleeding, abdominal cp pain. Severity of symptoms: in the emergency department the symptoms are unchanged. Historical: - Allergies: 09:48 No Known Allergies; bp - Home Meds: 09:48 None [Active]; bp - PMHx: 09:48 None; bp - PSHx: 09:48 None; bp - Immunization history:: Adult Immunizations up to date. - Social history:: Smoking status: Patient denies any tobacco usage or history of. ROS: 09:45 Constitutional: Negative for body aches, chills, fever, poor PO intake. cp 09:45 Cardiovascular: Negative for chest pain, palpitations. cp 09:45 Respiratory: Negative for cough, shortness of breath, wheezing. 09:45 Abdomen/GI: Negative for abdominal pain, nausea, vomiting, and diarrhea. 09:45 : Positive for urinary frequency, bladder incontinence vaginal discharge, Negative for burning with urination, difficulty urinating. 09:45 Neuro: Negative for altered mental status, headache, weakness. 09:45 All other systems are negative. Exam: 09:50 Constitutional: The patient appears in no acute distress, alert, awake, comfortable, cp non-toxic, well developed, well nourished. 09:50 Head/Face: Normocephalic, atraumatic. cp 09:50 Eyes: Periorbital structures: appear normal, Conjunctiva: normal, no exudate, no injection, Sclera: no appreciated abnormality, Lids and lashes: appear normal, bilaterally. 09:50 ENT: External ear(s): are unremarkable, Nose: is normal, Posterior pharynx: Airway: no evidence of obstruction, patent. 09:50 Chest/axilla: Inspection: normal. 09:50 Cardiovascular: Rate: normal. 09:50 Respiratory: the patient does not display signs of respiratory distress, Respirations: normal, no use of accessory muscles, no retractions, labored breathing, is not present. 09:50 Abdomen/GI: Inspection: abdomen appears normal, Bowel sounds: active, all quadrants, Palpation: abdomen is soft and non-tender, in all quadrants, voluntary guarding, is not appreciated, involuntary guarding, is not appreciated. 09:50 Back: pain, is absent, ROM is normal. 10:27 : Pelvic Exam: External exam: is normal, Speculum exam: no bleeding is noted, no cp cervicitis, os that is closed, bimanual exam reveals normal findings, discharge, white, a female base remover was present for the exam, Sexual behavior: the patient is sexually active, and reports a single partner, method of control is none. Vital Signs: 09:20 BP 128 / 81; Pulse 105; Resp 20; Temp 98.6; Pulse Ox 100% ; Weight 58.97 kg; Height 5 bp ft. 2 in. (157.48 cm); 10:36 BP 127 / 82; Pulse 98; Resp 16; Pulse Ox 99% ; bp 11:22 BP 124 / 75; Pulse 67; Resp 16; Temp 98.5; Pulse Ox 100% ; bp 09:20 Body Mass Index 23.78 (58.97 kg, 157.48 cm) bp MDM: 09:31 Patient medically screened. cp 10:00 Differential diagnosis: albert infection, cervicitis, menorrhea, molar preganancy, cp ovarian cyst, pelvic inflammatory disease. 11:09 Data reviewed: vital signs, nurses notes, lab test result(s), and as a result, I will cp discharge patient. 11:09 Counseling: I had a detailed discussion with the patient and/or guardian regarding: the cp historical points, exam findings, and any diagnostic results supporting the discharge/admit diagnosis, lab results, the need for outpatient follow up, an OB/Gyne specialist, to return to the emergency department if symptoms worsen or persist or if there are any questions or concerns that arise at home. 09/10 09:33 Order name: GC (GONORR/CHLAMYDIA) Probe cp 09/10 09:33 Order name: Wet Prep; Complete Time: 11:06 09/10 11:06 Interpretation: Reviewed. 09/10 09:46 Order name: Urine Dipstick--Ancillary (enter results); Complete Time: 10:17 eb 09/10 10:17 Interpretation: Normal except: UKET 4+. 09/10 09:46 Order name: Urine --Ancillary (enter results); Complete Time: 10:17 eb 09/10 10:45 Order name: Glucose, Ancillary Testing; Complete Time: 10:51 EDMS 09/10 10:51 Interpretation: Reviewed. 09/10 09:33 Order name: Urine Dipstick-Ancillary (obtain specimen); Complete Time: 09:45 cp 09/10 09:33 Order name: Urine Test (obtain specimen); Complete Time: 09:45 09/10 09:33 Order name: Pelvic Exam Setup; Complete Time: 09:45 09/10 10:17 Order name: Accucheck Blood Glucose; Complete Time: 10:35 cp Administered Medications: 10:45 Drug: Rocephin (cefTRIAXone) 250 mg Route: IM; Site: right gluteus; bp 11:26 Follow up: Response: No adverse reaction bp 10:45 Drug: Zithromax 1 grams Route: PO; bp 11:26 Follow up: Response: No adverse reaction bp Disposition: 11:30 Chart complete. 09/11 11:09 Co-signature as Attending Physician, Cas Lozano MD. ma2 Disposition: 09/10/20 11:10 Discharged to Home. Impression: Encounter for screening for infections with a predominantly sexual mode of transmission. - Condition is Stable. - Discharge Instructions: Sexually Transmitted Disease, Health Maintenance, Female. - Medication Reconciliation Form, Thank You Letter, Antibiotic Education, Prescription Opioid Use form. - Follow up: Chrissy Hurst MD; When: 2 - 3 days; Reason: Recheck today's complaints. - Problem is new. - Symptoms have improved. Signatures: Dispatcher [employer] EDAK Yovanny Mcfadden PA PA cp Peltier, Brian, CONSTANTINO RN Cas Snowden MD MD ma2 Corrections: (The following items were deleted from the chart) 09/10 11: 11:10 09/10/2020 11:10 Discharged to Home. Impression: Encounter for screening for bp infections with a predominantly sexual mode of transmission. Condition is Stable. Forms are Medication Reconciliation Form, Thank You Letter, Antibiotic Education, Prescription Opioid Use. Follow up: Chrissy Hurst; When: 2 - 3 days; Reason: Recheck today's complaints. Problem is new. Symptoms have improved. cp
--- NOTE | 2020-09-10 11:11 | ER ---
Nurse's Notes [facility] Name: Renita Brooke Age: 20 yrs Sex: Female : 2000 Arrival Date: 09/10/2020 Time: 09:02 Bed 19 Private MD: Diagnosis: Encounter for screening for infections with a predominantly sexual mode of transmission Presentation: 09/10 09:20 Chief complaint: Patient states: I HAVE PEE LEAK OUT AND I CAN'T FEEL SEX ANYMORE. bp Coronavirus screen: At this time, the client does not indicate any symptoms associated with coronavirus-19. Ebola Screen: No symptoms or risks identified at this time. Initial Sepsis Screen: Does the patient meet any 2 criteria? HR > 90 bpm. No. Patient's initial sepsis screen is negative. Does the patient have a suspected source of infection? No. Patient's initial sepsis screen is negative. Risk Assessment: Do you want to hurt yourself or someone else? Patient reports no desire to harm self or others. Note S/S x3 MONTHS. Onset of symptoms is unknown. 09:20 Method Of Arrival: Ambulatory bp 09:20 Acuity: RAE 3 bp Triage Assessment: 09:20 General: Appears distressed, uncomfortable, slender, Behavior is cooperative, bp appropriate for age, anxious, crying. Pain: Complains of pain in pelvis. EENT: No deficits noted. Neuro: No deficits noted. Cardiovascular: No deficits noted. Respiratory: No deficits noted. GI: No signs and/or symptoms were reported involving the gastrointestinal system. : Reports incontinence, pain with urination. Derm: No deficits noted. Musculoskeletal: No deficits noted. Historical: - Allergies: 09:48 No Known Allergies; bp - Home Meds: 09:48 None [Active]; bp - PMHx: 09:48 None; bp - PSHx: 09:48 None; bp - Immunization history:: Adult Immunizations up to date. - Social history:: Smoking status: Patient denies any tobacco usage or history of. Screenin:20 Abuse screen: Denies threats or abuse. Denies injuries from another. Nutritional bp screening: No deficits noted. Tuberculosis screening: No symptoms or risk factors identified. Fall Risk None identified. Assessment: :20 General: SEE TRIAGE NOTE. bp 10:19 Reassessment: Patient appears in no apparent distress at this time. No changes from bp previously documented assessment. Patient and/or family updated on plan of care and expected duration. Pain level reassessed. LMP AND PCT AT B/S FOR PELVIC EXAM. 10:36 Reassessment: Patient appears in no apparent distress at this time. No changes from bp previously documented assessment. Patient and/or family updated on plan of care and expected duration. Pain level reassessed. PELVIC EXAM COMPLETED. 11:22 Reassessment: PT D/C HOME AMBULATORY, DX WITH STD EXPOSURE. bp Vital Signs: 09:20 BP 128 / 81; Pulse 105; Resp 20; Temp 98.6; Pulse Ox 100% ; Weight 58.97 kg; Height 5 bp ft. 2 in. (157.48 cm); 10:36 BP 127 / 82; Pulse 98; Resp 16; Pulse Ox 99% ; bp 11:22 BP 124 / 75; Pulse 67; Resp 16; Temp 98.5; Pulse Ox 100% ; bp 09:20 Body Mass Index 23.78 (58.97 kg, 157.48 cm) bp ED Course: 09:02 Patient arrived in ED. as 09:20 Yovanny Mcfadden PA is PHCP. cp 09:20 Cas Lozano MD is Attending Physician. cp 09:20 Arm band placed on. bp 09:20 Patient has correct armband on for positive identification. Placed in gown. Bed in low bp position. Call light in reach. Side rails up X2. 09:22 Torrey Zuniga, RN is Primary Nurse. bp 09:47 Triage completed. bp 10:19 Assist provider with pelvic exam: Set up pelvic tray. Performed by Yovanny SHAFFER bp Specimens sent to lab. 11:09 Chrissy Hurst MD is Referral Physician. cp 11:22 Patient did not have IV access during this emergency room visit. bp Administered Medications: 10:45 Drug: Rocephin (cefTRIAXone) 250 mg Route: IM; Site: right gluteus; bp 11:26 Follow up: Response: No adverse reaction bp 10:45 Drug: Zithromax 1 grams Route: PO; bp 11:26 Follow up: Response: No adverse reaction bp Outcome: 11:10 Discharge ordered by . cp 11:22 Discharged to home ambulatory. bp 11:22 Condition: stable 11:22 Discharge instructions given to patient, Instructed on discharge instructions, follow up and referral plans. safe sex practices, Demonstrated understanding of instructions, follow-up care. 11:27 Patient left the ED. bp Signatures: Adelina De La Torre Corey, DEENA PA Torrey Henderson, RN RN bp
[2020-09-10 11:50] VITALS: BP 124/75; TEMP 98.5; O2SAT 100
[2020-09-13 08:28] LABS: C.trachomatis RNA,TMA Not Detected (Not Detected)
== END 2020-09-10 11:27 | disposition home or self-care (01) ==
LOC: ER 09:00
DX: Z11.3 Encounter for screening for infections with a predominantly sexual mode of transmission (principal)
CPT/HCPCS: 81025; 82947; 87210; 81003; 87590; 87490; 96372; 99283; J0696

== ENCOUNTER → 2023-10-03 | Emergency (ER) | payer OTHER, SELFPAY ==
[~2023-10-03] MED LIST: D5 0.9 NS 1,000 ML IV ONE; NALOXONE HCL 2 MG/2 ML VIAL ONE; ONDANSETRON 4 MG/2 ML VIAL ONE; POTASSIUM CL SA 10 MEQ TAB PO ONE
--- OUTSIDE RECORDS SUMMARY | 2023-10-03 01:15 | XMS REPORT | Continuity of Care Document ---
Author Name Unknown Address [address] [facility] [address] [place] [address] [facility] Address [address] [facility] [place] [address] Care Team Providers Care Adult Protective Caseworker Name Role Phone Malgorzata Sorto PA-C Attending Clinician [phone] Armida Fuentes MD Attending Clinician [phone] Doctor Unassigned, [place] Attending Clinician U navailable 2, [facility] Attending Clinician Unavailable Nurse, [facility] Attending Clinician Un available Armida Fuentes MD Admitting Clinician [phone] Encounters Start Date/Time End Date/Time Encounter Type Admission Type Attending Clinicians Care Facility Care Department Encounter ID Source 2020-09-03 10:57:58 2020-09-03 11:27:58 Telemedici ne Visit Malgorzata Sorto [facility] [id number] [id number] [id number] [id number] 2020-09-01 00:00:00 2020-09-01 00:00:00 Telephone Armida Fuentes [facility] [id number] [id number] [id number] [id number] 2020-08-17 15:30:31 2020-08-17 16:00:31 Telemedici ne Visit Malgorzata Sorto [facility] [id number] 350.1.13.10 [id number] [id number] 2020-07-20 16:27:25 2020-07-20 16:42:25 Routine Visit Malgorzata Sorto [facility] [id number] 350.1.13.10 [id number] [id number] 2020-07-20 00:00:00 2020-07-20 00:00:00 Orders Only Doctor Unassigned, [place] [facility] [id number] 350.1.13.10 [id number] [id number] 2020-06-24 15:57:14 2020-06-24 16:12:14 Marker Maker Visit 2, [facility] Lab [facility] [id number] 350.1.13.10 4.2.7.2.686 [id number] 2020-06-24 00:00:00 2020-06-24 00:00:00 Orders Only Doctor Unassigned, [place] [facility] [id number] 350.1.13.10 [id number] [id number] 2020-06-24 00:00:00 2020-06-24 00:00:00 Telephone Malgorzata Sorto [facility] 1.2.840.114 350.1.13.10 4.2.7.2.686 [id number] 2020-06-24 00:00:00 2020-06-24 00:00:00 Case Management Armida Fuentes [facility] 1.2.840.114 350.1.13.10 4.2.7.2.686 [id number] 2020-06-23 15:02:55 2020-06-23 16:16:06 Nurse Visit Nurse, [facility] [id number] 350.1.13.10 4.2.7.2.686 [id number] 2020-06-15 15:16:00 2020-06-17 20:45:00 Hospital Encounter Armida Fuentes [facility] [id number] 350.1.13.10 4.2.7.2.686 [id number] 2020-06-15 13:22:52 2020-06-15 14:38:56 Routine Visit Armida Fuentes [facility] 1.2.840.114 350.1.13.10 4.2.7.2.686 [id number] 2020-06-15 12:10:07 2020-06-15 12:25:07 Marker Maker Visit 2, [facility] Lab [facility] 1.2.840.114 350.1.13.10 4.2.7.2.686 [id number] 2020-06-12 16:26:50 2020-06-12 17:41:09 Routine Visit Malgorzata Sorto [facility] 1.2.840.114 350.1.13.10 4.2.7.2.686 [id number] 2020-06-12 16:37:37 2020-06-12 16:52:37 Marker Maker Visit 2, [facility] 1.2.840.114 350.1.13.10 4.2.7.2.686 [id number] 2020-06-12 00:00:00 2020-06-12 00:00:00 Orders Only Doctor Unassigned, [place] [facility] 1.2.840.114 350.1.13.10 4.2.7.2.686 [id number] 2020-05-22 14:55:48 2020-05-28 13:46:17 Telemedici ne Visit Armida Fuentse [facility] 1.2.840.114 350.1.13.10 4.2.7.2.686 [id number] 134 [id number]
[2023-10-03 02:08] LABS: Absolute Lymphocytes (CBC) 2.7 K/uL (0.7-4.9); Hematocrit 34.1 % (36.0-45.0); Lymphocytes % 41.9 % (15.3-44.8); MCV 86.6 fL (80-100); MPV 9.1 fL (7.6-11.3); Platelets 292 thou/uL (152-406); RBC Red Blood Cell Count 3.94 M/uL (3.86-4.86)
[2023-10-03 02:17] LABS: Barbiturates NEGATIVE (NEGATIVE); Benzodiazepines POSITIVE (NEGATIVE); Cocaine NEGATIVE (NEGATIVE); METHAMPHETAM NEGATIVE (NEGATIVE); Methadone NEGATIVE (NEGATIVE); Opiates NEGATIVE (NEGATIVE); Phencyclidine NEGATIVE (NEGATIVE); THC Cannibis NEGATIVE (NEGATIVE)
[2023-10-03 02:18] LABS: Protime INR 1.29; Specific Gravity 1.024 (1.005-1.030)
[2023-10-03 02:28] LABS: ALT/SGPT 17 U/L (13-56); Albumin 3.1 g/dL (3.4-5.0); Alkaline Phosphatase 100 U/L (45-117); BUN Blood Urea Nitrogen 10 mg/dL (7-18); Bicarbonate 21 mEq/L (21-32); Bilirubin Total 0.2 mg/dL (0.2-1.0); Glomerular Filtration Rate 118 ml/min (=/>90); Glucose Level 179 mg/dL (74-106); Sodium Level 138 mEq/L (136-145)
[2023-10-03 02:33] LABS: AST/SGOT 18 U/L (15-37); Bilirubin Direct < 0.1 mg/dL (0-0.2); Bilirubin Indirect, Calculated ND mg/dL (0.2-0.8); Potassium 3.1 mEq/L (3.5-5.1)
--- NOTE | 2023-10-03 04:16 | ER ---
Nurse's Notes [facility] Name: Renita Brooke Age: 23 yrs Sex: Female : 2000 Arrival Date: 10/03/2023 Time: 01:11 Bed 3 Private MD: Diagnosis: Acute unintentional opiate overdose, benzodiazepine use disorder;Hypokalemia Presentation: 10/03 01:17 Chief complaint: EMS states: EMS toned out for possible overdose. on arrival, PT lg3 unresponsive, apneic and cyanotic. initiated CPR. 4mg Narcan IN administered. ROSC achieved. On arrival PT drowsy but alert. PT states that she took 1 BAR around 0000. denies SI at this time. Coronavirus screen: Client denies travel out of the [place] in the last 14 days. At this time, the client does not indicate any symptoms associated with coronavirus-19. Ebola Screen: No symptoms or risks identified at this time. Initial Sepsis Screen: Does the patient meet any 2 criteria? No. Patient's initial sepsis screen is negative. Does the patient have a suspected source of infection? No. Patient's initial sepsis screen is negative. Risk Assessment: Do you want to hurt yourself or someone else? Patient reports no desire to harm self or others. Onset of symptoms was October 03, 2023 at 00:00. Care prior to arrival: Assisted ventilation, CPR performed by bystander Medication(s) given: Narcan IV initiated. 18 GA, in the left antecubital area, Oxygen administered. via nasal cannula. Activity prior to arrival: unresponsive. 01:17 Method Of Arrival: EMS: [facility] lg3 01:17 Acuity: RAE 2 lg3 Triage Assessment: 01:25 General: Appears in no apparent distress. slender, Behavior is calm, cooperative, flat. lg3 Pain: Denies pain. EENT: No deficits noted. No signs and/or symptoms were reported regarding the EENT system. Neuro: Level of Consciousness is awake, obeys commands, Oriented to person, place, Pupils are pinpoint. Cardiovascular: No deficits noted. Denies chest pain, shortness of breath, Capillary refill < 3 seconds Clubbing of nail beds is absent JVD is absent Patient's skin is warm and dry. Respiratory: Airway is patent Respiratory effort is even, unlabored, Respiratory pattern is regular, symmetrical. GI: No deficits noted. No signs and/or symptoms were reported involving the gastrointestinal system. : No deficits noted. No signs and/or symptoms were reported regarding the genitourinary system. Derm: No deficits noted. No signs and/or symptoms reported regarding the dermatologic system. Skin is intact, is healthy with good turgor, Skin is dry, Skin is normal, Skin temperature is warm. Musculoskeletal: No deficits noted. Circulation, motion, and sensation intact. Range of motion: intact in all extremities. 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 Flu vaccine status is unknown. - Social history:: Smoking status: Patient denies any tobacco usage or history of. Patient uses alcohol, occasionally. - Family history:: not pertinent. Screenin:14 [facility] ED Fall Risk Assessment (Adult) History of falling in the last 3 months, ha1 including since admission No falls in past 3 months (0 pts) Confusion or Disorientation Yes (5 pts) Intoxicated or Sedated Yes (3 pts) Impaired Gait No (0 pts) Mobility Assist Device Used No (0 pt) Altered Elimination Yes (1 pt) Score/Fall Risk Level 3 or more points = High Risk Oriented to surroundings, Maintained a safe environment, Educated pt \T\ family on fall prevention, incl call for assistance when getting out of bed, Hourly rounding (assess needs \T\ fall precautionary measures) done. Abuse screen: Denies threats or abuse. Denies injuries from another. Nutritional screening: No deficits noted. Tuberculosis screening: No symptoms or risk factors identified. Assessment: :14 General: Appears comfortable, Behavior is calm, drowsy. Pain: Denies pain. Neuro: Level ha1 of Consciousness is awake, alert, lethargic, Oriented to person, time, situation. Cardiovascular: Capillary refill < 3 seconds Patient's skin is warm and dry. Respiratory: Airway is patent Respiratory effort is even, unlabored, Respiratory pattern is regular, symmetrical. GI: No signs and/or symptoms were reported involving the gastrointestinal system. Abdomen is flat, non-distended, Bowel sounds present X 4 quads. Derm: Skin is pink, warm \T\ dry. Musculoskeletal: Circulation, motion, and sensation intact. 02:15 Reassessment: Patient and/or family updated on plan of care and expected duration. Pain ha1 level reassessed. Patient is alert, oriented x 3, equal unlabored respirations, skin warm/dry/pink. 03:00 Reassessment: Patient and/or family updated on plan of care and expected duration. Pain ha1 level reassessed. Patient is alert, oriented x 3, equal unlabored respirations, skin warm/dry/pink. 03:50 Reassessment: Pt. requesting to be discharge. Notified Dr. Meeks. ha1 04:00 Reassessment: Dr. Meeks in the room explaining to patient the need to continue to stay.ha1 Vital Signs: 01:17 BP 108 / 81; Pulse 101; Resp 15 S; Temp 97.3(TE); Pulse Ox 100% on 4 lpm NC; Weight lg3 49.5 kg (M); Height 5 ft. 2 in. (R); 02:15 BP 102 / 66; Pulse 83; Resp 15 S; Pulse Ox 100% on 2 lpm NC; ha1 03:42 BP 94 / 62; Pulse 78; Pulse Ox 100% on R/A; kl 01:17 Body Mass Index 19.96 (49.50 kg, 157.48 cm) lg3 ED Course: 01:13 Patient arrived in ED. kl 01:14 Constantino Orlando MD is Attending Physician. sp4 01:14 Patient has correct armband on for positive identification. Placed in gown. Bed in low ha1 position. Call light in reach. Side rails up X2. 01:25 Triage completed. lg3 01:25 Arm band placed on right wrist. lg3 01:28 Maintain EMS IV. Dressing intact. Good blood return noted. Site clean \T\ dry. Gauge \T\ lg 3 site: 18LAC. Oxygen administration via nasal cannula \T\ 4L/min. 01:52 Acetaminophen Sent. ha1 01:52 Basic Metabolic Panel Sent. ha1 01:53 CBC with Diff Sent. ha1 01:53 ETOH Level Sent. ha1 01:53 Hepatic Function Sent. ha1 01:53 PT-INR Sent. ha1 01:53 Ptt, Activated Sent. ha1 01:53 Salicylate Sent. ha1 01:53 Urine Drug Screen Sent. ha1 02:34 No apparent distress. Resting quietly. Appears to be sleeping. kl 04:05 No provider procedures requiring assistance completed. ha1 04:05 IV discontinued, intact, bleeding controlled, No redness/swelling at site. Pressure ha1 dressing applied. Administered Medications: 01:21 Drug: Naloxone IVP 4 mg IVP once Route: IVP; Site: left antecubital; kl 02:00 Follow up: Response: No adverse reaction ha1 01:40 Drug: Ondansetron IVP 4 mg IVP once; over 2 minutes Route: IVP; Site: left antecubital; kl 02:00 Follow up: Response: No adverse reaction ha1 02:00 Drug: D5-NS IV 1000 ml IV at 125 ml/hr continuous Route: IV; Rate: 125 ml/hr; Site: [facility] left antecubital; 04:00 Follow up: Response: No adverse reaction; IV Status: Completed infusion ha1 03:40 Drug: Potassium Chloride PO 40 mEq PO once Route: PO; kl 04:00 Follow up: Response: No adverse reaction ha1 Medication: 02:35 VIS not applicable for this client. ha1 Outcome: 04:12 Patient left the ED. ha1 04:12 Condition: stable ha1 04:12 AMA AMA form signed ha1 04:12 Discharge instructions given to patient, Instructed on need to stay to continue to be monitor Signatures: Henna Locke RN RN kl Able, Lacie, RN RN 3 Edith Owusu RN RN 1 Constantino Orlando MD MD sp4 Corrections: (The following items were deleted from the chart) 05:05 04:25 Patient left the ED. ha1 ha1
--- NOTE | 2023-10-03 04:16 | EDPHYS ---
Physician Documentation [facility] Name: Renita Brooke Age: 23 yrs Sex: Female : 2000 Arrival Date: 10/03/2023 Time: 01:11 Bed 3 Private MD: ED Physician Constantino Orlando HPI: 10/03 01:14 This 23 yrs old Female presents to ER via Unassigned with complaints of opiate sp4 overdose , unresponsiveness, respiratory depression . 01:19 Patient was found at home unresponsive by her and her has initiated CPR sp4 also called police department. On arrival police department administered intranasal Narcan. EMS reports that initially patient had agonal respirations but after administration of intranasal Narcan patient woke up and became alert and responsive. On arrival patient is appearing somnolent but arousable and reports the use of Xanax bar off the street. Patient states she took Xanax about at about midnight. Denied taking fentanyl tablets or any other drugs. . 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 Flu vaccine status is unknown. - Social history:: Smoking status: Patient denies any tobacco usage or history of. Patient uses alcohol, occasionally. - Family history:: not pertinent. ROS: 01: Constitutional: Negative for fever, chills, and weight loss, Positive drug use. sp4 Positive unresponsiveness at the time of emergency call with no further ROS available : All other systems are negative, : Unable to obtain ROS due to altered mental status, Exam: : Constitutional: This is a well developed, well nourished patient who is somnolent sp4 appearing but arousable, full exam accomplished after IV Narcan Head/Face: Normocephalic, atraumatic. Eyes: Pupils equal round and reactive to light, extra-ocular motions intact. Lids and lashes normal. Conjunctiva and sclera are not injected. Cornea within normal limits. Periorbital areas with no swelling, redness, or edema. ENT: Nares patent. No nasal discharge, no septal abnormalities noted. Tympanic membranes are normal and external auditory canals are clear. Oropharynx with no redness, swelling, or masses, exudates, or evidence of obstruction, uvula midline. Mucous membranes moist. Neck: Trachea midline, no thyromegaly or masses palpated, and no cervical lymphadenopathy. Supple, full range of motion without nuchal rigidity, or vertebral point tenderness. Chest/axilla: Normal chest wall appearance and motion. Nontender with no deformity. No lesions are appreciated. Cardiovascular: Regular rate and rhythm with a normal S1 and S2. No gallops, murmurs, or rubs. Normal PMI, no JVD. No pulse deficits. Respiratory: Lungs have equal breath sounds bilaterally, clear to auscultation and percussion. No rales, rhonchi or wheezes noted. No increased work of breathing, no retractions or nasal flaring. Abdomen/GI: Soft, non-tender, with normal bowel sounds. No distension or tympany. No guarding or rebound. No evidence of tenderness throughout. Back: No spinal tenderness. No costovertebral tenderness. Skin: Warm, dry with normal turgor. Normal color with no rashes, no lesions, and no evidence of cellulitis. MS/ Extremity: Pulses equal, no cyanosis. Neurovascular intact. Full, normal range of motion. Neuro: Awake and alert, GCS 15, oriented to person, place, time, and situation. Cranial nerves II-XII grossly intact. Motor strength 5/5 in all extremities. Sensory grossly intact. 03:37 ECG was reviewed by the Attending Physician. EKG at 0 141 is normal sinus rhythm at a sp4 rate of 90, no ST elevation or depression, no ectopy overall normal EKG Vital Signs: 01:17 BP 108 / 81; Pulse 101; Resp 15 S; Temp 97.3(TE); Pulse Ox 100% on 4 lpm NC; Weight lg3 49.5 kg (M); Height 5 ft. 2 in. (R); 02:15 BP 102 / 66; Pulse 83; Resp 15 S; Pulse Ox 100% on 2 lpm NC; ha1 03:42 BP 94 / 62; Pulse 78; Pulse Ox 100% on R/A; kl 01:17 Body Mass Index 19.96 (49.50 kg, 157.48 cm) lg3 MDM: 01:43 Patient medically screened. sp4 04:13 Differential Diagnosis altered mental status, sepsis, flu. Data reviewed: vital signs, sp4 nurses notes, EMS record, lab test result(s), hepatic panel, urine drug screen, EKG. Consideration of Admission/Observation Escalation of care including admission/observation considered. ED course: Patient arrived after Narcan alleviated unresponsiveness.. Patient was monitored in the emergency room given additional 4 mg IV Narcan . Patient was advised to stay in the emergency room at least 4 hours until 5:10 AM. For safety monitoring patient has to be monitored for at least 4 hours after potential fentanyl overdose. We do suspect fentanyl overdose secondary to patient's response to Narcan.. At 4:13 AM patient decided to leave AGAINST MEDICAL ADVICE. We attempted to convince patient to stay for proper monitoring in the ER but patient still decides to leave AMA. Patient was advised to return to the emergency department for any emergent medical concerns. . 10/03 01:15 Order name: Acetaminophen; Complete Time: 03:15 10/03 01:15 Order name: Basic Metabolic Panel; Complete Time: 03:15 10/03 01:15 Order name: CBC with Diff; Complete Time: 03:15 10/03 01:15 Order name: ETOH Level; Complete Time: 03:15 10/03 01:15 Order name: Hepatic Function; Complete Time: 03:15 10/03 01:15 Order name: PT-INR; Complete Time: 03:15 [facility] 10/03 01:15 Order name: Ptt, Activated; Complete Time: 03:15 10/03 01:15 Order name: Salicylate; Complete Time: 03:15 [facility] 10/03 01:15 Order name: Urine Drug Screen; Complete Time: 03:15 [facility] 10/03 01:15 Order name: Test, Urine; Complete Time: 03:15 10/03 01:15 Order name: EKG; Complete Time: 01:15 [facility] 10/03 01:15 Order name: EKG - Nurse/Tech; Complete Time: 01:52 [facility] 10/03 01:15 Order name: IV Saline Lock; Complete Time: 01:52 10/03 01:15 Order name: Labs collected and sent; Complete Time: sp4 10/03 01:15 Order name: Suicide Screening (Mal); Complete Time: sp4 EC:37 Rate is 90 beats/min. Rhythm is regular, Normal Sinus Rhythm. QRS [place] is Normal. [place] sp4 interval is normal. QRS interval is normal. QT interval is normal. No Q waves. T waves are Normal. Clinical impression: Normal ECG. Interpreted by me. Reviewed by me. Administered Medications: 01:21 Drug: Naloxone IVP 4 mg IVP once Route: IVP; Site: left antecubital; kl 02:00 Follow up: Response: No adverse reaction ha1 01:40 Drug: Ondansetron IVP 4 mg IVP once; over 2 minutes Route: IVP; Site: left antecubital; kl 02:00 Follow up: Response: No adverse reaction ha1 02:00 Drug: D5-NS IV 1000 ml IV at 125 ml/hr continuous Route: IV; Rate: 125 ml/hr; Site: [facility] left antecubital; 04:00 Follow up: Response: No adverse reaction; IV Status: Completed infusion ha1 03:40 Drug: Potassium Chloride PO 40 mEq PO once Route: PO; kl 04:00 Follow up: Response: No adverse reaction ha1 Disposition Summary: 10/03/23 04:15 Left Against Medical Advice Notes: Location: Home sp4 Problem: new sp4 Symptoms: have improved sp4 Condition: Stable sp4 Diagnosis - Acute unintentional opiate overdose, benzodiazepine use disorder sp4 - Hypokalemia sp4 Followup: sp4 - With: Private Physician - When: 1 - 2 days - Reason: Recheck today's complaints Discharge Instructions: - Discharge Summary Sheet sp4 - Opioid Overdose sp4 Signatures: Dispatcher [employer] Henna Johns RN RN kl Able, Lacie, RN RN lg3 Ayala, Heidy, RN RN ha1 Potepalov, Sergey, MD MD sp4
--- NOTE | 2023-10-03 11:46 | EKG ---
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
[2023-10-03 12:01] VITALS: TEMP 97.3; O2SAT 100
[2023-10-03 12:06] VITALS: BP 94/62
== END ==
LOC: ER 01:11
DX: T40.601A Poisoning by unspecified narcotics, accidental (unintentional), initial encounter (principal); F15.90 Other stimulant use, unspecified, uncomplicated; E87.6 Hypokalemia
CPT/HCPCS: 36415; 80048; 80076; 80143; 80179; 80307; 81025; 82077; 85025; 85610; 85730; 93005; 96365; 96366; 96375; 99291; 99292; J2310; J2405; J7042

== ENCOUNTER → 2023-10-31 | Emergency (ER) | payer SELFPAY ==
[~2023-10-31] MED LIST changes: -D5 0.9 NS 1,000 ML IV ONE; +EPINEPHrine 1 MG/10 ML SYR IV ONE; +NALOXONE HCL 2 MG/2 ML VIAL IV ONE; -NALOXONE HCL 2 MG/2 ML VIAL ONE; -ONDANSETRON 4 MG/2 ML VIAL ONE; -POTASSIUM CL SA 10 MEQ TAB PO ONE
--- OUTSIDE RECORDS SUMMARY | 2023-10-31 08:10 | XMS REPORT | Continuity of Care Document ---
Author Name Unknown Address [address] [facility] [address] [place] [address] [facility] Address [address] [facility]. [address] [place] [address] Care Team Providers Care Wallpaper Hanger Helper Name Role Phone PCP, PATIENT DOES NOT HAVE A Primary Care Physic aditi Unavailable KWAME MEDINA Attending Clinician Unavailable WANG KONG Attending Clinician Unavailable Wang Otero Attending Clinician [phone] Unknown, Attending Attending Clinician UnavailKwame Mejia MD Attending Clinician [phone] Doctor Unassigned, [place] Attending Clinician [facility] Nurse, [facility] Attending Clinician Un available 2, [facility] Lab Attending Clinician Unavailable Kolby Diaz PA-C Attending Clinician [phone] KOLBY DIAZ Attending Clinician Unavailable Ultrasound, [facility] Attending Clinician UnavailYovanny Hay DO Attending Clinician [phone] Ultrasound, [facility] Attending Clinician Unavaila jocy Wills MD, Magnus Attending Clinician + MAGNUS BUTLER Attending Clinician Unav ailable Pob, [facility] Attending Clinician UnavailTORREY Hebert Attending Clinician Unavailable Torrey Franklin MD Attending Clinician [phone] Gabbi Turcios MD Attending Clinician [phone] Apolinar Witt MD Attending Clinician [phone] Adam Lopes MD Attending Clinician [phone] FLAQUITA COELHO Attending Clinician Unavailab Flaquita Farr DO Attending Clinician + [phone] DUKE PENALOZA Attending Clinician Unavaila [facility] Attending Clinician + [phone] INOCENCIO ANTHONY Attending Clinician Unavailable Inocencio Anthony MD Attending Clinician [phone] TOM PEREZ Attending Clinician Unavaila TOM Clark Attending Clinician Unavaila SHAI Rg Attending Clinician Unavailable Shai Knapp MD Attending Clinician [phone] Ashlyn Strickland MD Attending Clinician [phone] Britany Verdugo MD Attending Clinician [phone] Jose Akhtar Attending Clinician [phone] ASHWINI DUQUE Attending Clinician Unavailab Ashwini Cruz Attending Clinician + [phone] NADIRA BARKLEY Attending Clinician Unavailable NADIRA BARKLEY Attending Clinician Unavailable Visit, [facility] Attending Clinician Unava ilable Lab, [facility] Attending Clinician Unavailable KWAME MEDINA Admitting Clinician Unavailable Kwame Medina MD Admitting Clinician [phone] Apolinar Witt MD Admitting Clinician [phone] APOLINAR WITT Admitting Clinician Unavailable Payers Payer Name Policy Type Policy Number Effective Date Expirati on Date Source [employer] MEDICAID [id number] 2020 00:00:00 [place] [id number] 2019 00:00:00 Problems Condition Name Condition Details Condition Category Status Onset Date Resolution Date Last Treatment Date Treating Clinician Comments Source Uterine contractio ns during Uterine contractio ns during Disease Active 5-14 00:00: 00 [facility] Round ligament pain Round ligament pain Disease Active - 00:00: 00 [facility] Ruptured globe of right eye, initial encounter Ruptured globe of right eye, initial encounter Disease Active 2021-10 00:00: 00 Overview: Formattin g of this note might be different from the original. Added automatic ally from request for surgery [id number] [facility] Conjunctiv al laceration , left, initial encounter Conjunctiv al laceration , left, initial encounter Disease Active 2021-10 00:00: 00 Overview: Formattin g of this note might be different from the original. Added automatic ally from request for surgery [id number] [facility] Traumatic injury of globe of eye Traumatic injury of globe of eye Disease Active 2021-10 00:00: 00 [facility] Constipati on, unspecifie d constipati on type Constipati on, unspecifie d constipati on type Disease Active 2021-10 00:00: 00 [facility] Current severe episode of major depressive disorder without psychotic features, unspecifie d whether recurrent Current severe episode of major depressive disorder without psychotic features, unspecifie d whether recurrent Disease Active -05 00:00: 00 [facility] Normal labor Normal labor Disease Active 2020-10 1- 00:00: 00 [facility] Elevated BP without diagnosis of hypertensi on Elevated BP without diagnosis of hypertensi on Disease Active 2020-10 00:00: 00 [facility] Obesity (BMI 30-39.9) Obesity (BMI 30-39.9) Disease Active 9-23 00:00: 00 [facility] Other headache syndrome Other headache syndrome Disease Active - 00:00: 00 [facility] Supervisio n of high risk in first trimester Supervisio n of high risk in first trimester Disease Active 4-21 00:00: 00 [facility] Nausea and vomiting during prior to 22 weeks gestation Nausea and vomiting during prior to 22 weeks gestation Disease Active 4-21 00:00: 00 [facility] Liveborn infant, of giang , born in hospital by vaginal delivery Liveborn , of giang , born in hospital by vaginal delivery Disease Active 9- 00:00: 00 [facility] 39 weeks gestation of 39 weeks gestation of Disease Active 8- 00:00: 00 [facility] Severe pre-eclamp verónica in third trimester Severe pre-eclamp verónica in third trimester Disease Active 8- 00:00: 00 [facility] History of pre-eclamp verónica History of pre-eclamp verónica Disease Active 0 8- 00:00: 00 [facility] High-risk in third trimester High-risk in third trimester Disease Active 3-04 00:00: 00 [facility] Maternal varicella, non-immune Maternal varicella, non-immune Disease Active 2-05 00:00: 00 Overview: Formattin g of this note might be different from the original. Address in [facility]. [facility] Allergies, Adverse Reactions, Alerts Allergy Name Allergy Type Status Severity Reaction(s) Onset Date Inactive Date Treating Clinician Comments Source No Known Allergie s DA Active U - 00:00: 00 [facility] No Known Allergie s DA Active U 3-25 00:00: 00 [facility] NO KNOWN ALLERGIE S Drug Class Active [facility] Social History Social Habit Start Date Stop Date Quantity Comments Source ASSERTION 2022-06-11 00:00:00 [facility] History SDOH Alcohol Comment [place] [facility] History of tobacco use Passive smoker [facility] Gender identity [facility] SDOH Alcohol Std Drinks [facility] History SDOH Alcohol Binge [facility] Exposure to SARS-CoV-2 (event) 2023-02-21 00:00:00 2023-03-03 10:00:00 Not sure [facility] History of Social function 2020-05-17 00:00:00 2020-05-17 00:00:00 [facility] Alcohol intake 2020-04-24 00:00:00 2020-04-24 00:00:00 Lifetime non-drinker (finding) [facility] Tobacco use and exposure 2019-11-19 00:00:00 2019-11-19 00:00:00 Smokeless tobacco non-user [facility] History SDOH Alcohol Frequency 2019-11-19 00:00:00 2019-11-19 00:00:00 1 [facility] Sex Assigned At 2000 00:00:00 2000 00:00:00 [facility] Smoking Status Start Date Stop Date Source Never smoked tobacco [facility] Medications Ordered Medication Name Filled Medication Name Start Date Stop Date Current Medication? Ordering Clinician Indication Dosage Frequency Signature (SIG) Comments Components Source amoxicillin 500 mg tablet 05-22 00:00: 00 06-02 04:59 :00 No [id number] 1000mg Take 2 tablets by mouth in the morning for 10 days. [facility] amoxicillin 500 mg tablet 05-22 00:00: 00 06-02 04:59 :00 No [id number] 1000mg Take 2 tablets by mouth in the morning for 10 days. [facility] valACYclovi r (VALTREX) 1 gram tablet 05-05 00:00: 00 Yes [id number] 1g Take 1 tablet by mouth in the morning. [facility] valACYclovi r (VALTREX) 1 gram tablet 05-05 00:00: 00 Yes [id number] 1g Take 1 tablet by mouth in the morning. [facility] valACYclovi r (VALTREX) 1 gram tablet 05-05 00:00: 00 Yes [id number] 1g Take 1 tablet by mouth in the morning. [facility] acyclovir 400 mg tablet 6 00:00: 00 04-22 04:59 :00 No [id number] 400mg Take 1 tablet by mouth in the morning and 1 tablet at noon and 1 tablet in the evening. Do all this for 10 days. [facility] acyclovir 400 mg tablet 6-27 00:00: 00 04-22 04:59 :00 No [id number] 400mg Take 1 tablet by mouth in the morning and 1 tablet at noon and 1 tablet in the evening. Do all this for 10 days. [facility] NIFEdipine ER tablet 30 mg 02-28 22:09: 00 Yes 30mg 30 mg, Oral, Q24H ABX, First dose (after last modificati on) on Mon02/28/23 at 1715, Until Discontinu ed, Routine [facility] NIFEdipine ER 30 mg tablet 02-28 00:00: 00 Yes [id number] 30mg Take 1 tablet by mouth every 24 (twenty-fo ur) hours. [facility] vitamin w/FA tablet 02-28 00:00: 00 Yes [id number] 1{tbl} Take 1 tablet by mouth in the morning. [facility] docusate 100 mg capsule 02-28 00:00: 00 Yes [id number] 200mg Take 2 capsules by mouth once daily as needed for Constipati on. [facility] ferrous sulfate 325 mg (65 mg iron) tablet 02-28 00:00: 00 Yes [id number] 325mg Take 1 tablet by mouth in the morning and 1 tablet in the evening. [facility] ibuprofen 600 mg tablet 02-28 00:00: 00 Yes [id number] 600mg Take 1 tablet by mouth every 6 (six) hours as needed (Pain). Take with food or milk. [facility] NIFEdipine ER 30 mg tablet 02-28 00:00: 00 Yes [id number] 30mg Take 1 tablet by mouth every 24 (twenty-fo ur) hours. [facility] vitamin w/FA tablet 02-28 00:00: 00 Yes [id number] 1{tbl} Take 1 tablet by mouth in the morning. [facility] docusate 100 mg capsule 02-28 00:00: 00 Yes [id number] 200mg Take 2 capsules by mouth once daily as needed for Constipati on. [facility] ferrous sulfate 325 mg (65 mg iron) tablet 02-28 00:00: 00 Yes [id number] 325mg Take 1 tablet by mouth in the morning and 1 tablet in the evening. [facility] ibuprofen 600 mg tablet 02-28 00:00: 00 Yes [id number] 600mg Take 1 tablet by mouth every 6 (six) hours as needed (Pain). Take with food or milk. [facility] ferrous sulfate 325 mg (65 mg iron) tablet 02-28 00:00: 00 Yes [id number] 325mg Take 1 tablet by mouth in the morning and 1 tablet in the evening. [facility] ferrous sulfate 325 mg (65 mg iron) tablet 02-28 00:00: 00 Yes [id number] 325mg Take 1 tablet by mouth in the morning and 1 tablet in the evening. [facility] ferrous sulfate 325 mg (65 mg iron) tablet 02-28 00:00: 00 Yes [id number] 325mg Take 1 tablet by mouth in the morning and 1 tablet in the evening. [facility] ferrous sulfate 325 mg (65 mg iron) tablet 02-28 00:00: 00 Yes [id number] 325mg Take 1 tablet by mouth in the morning and 1 tablet in the evening. [facility] ferrous sulfate 325 mg (65 mg iron) tablet 02-28 00:00: 00 Yes [id number] 325mg Take 1 tablet by mouth in the morning and 1 tablet in the evening. [facility] ferrous sulfate 325 mg (65 mg iron) tablet 02-28 00:00: 00 Yes [id number] 325mg Take 1 tablet by mouth in the morning and 1 tablet in the evening. [facility] ferrous sulfate 325 mg (65 mg iron) tablet 02-28 00:00: 00 Yes [id number] 325mg Take 1 tablet by mouth in the morning and 1 tablet in the evening. [facility] NIFEdipine ER 30 mg tablet 2022-0 5-16 00:00: 00 04-11 00:00 :00 No [id number] 30mg Take 1 tablet by mouth every 24 (twenty-fo ur) hours. [facility] vitamin w/FA tablet 2022-0 5-16 00:00: 00 04-11 00:00 :00 No [id number] 1{tbl} Take 1 tablet by mouth in the morning. [facility] docusate 100 mg capsule 2022-0 5-16 00:00: 00 04-11 00:00 :00 No [id number] 200mg Take 2 capsules by mouth once daily as needed for Constipati on. [facility] ibuprofen 600 mg tablet 2022-0 5-16 00:00: 00 04-11 00:00 :00 No [id number] 600mg Take 1 tablet by mouth every 6 (six) hours as needed (Pain). Take with food or milk. [facility] NIFEdipine ER 30 mg tablet 0 -16 00:00: 00 04-11 00:00 :00 No [id number] 30mg Take 1 tablet by mouth every 24 (twenty-fo ur) hours. [facility] vitamin w/FA tablet 2022-0 5-16 00:00: 00 04-11 00:00 :00 No [id number] 1{tbl} Take 1 tablet by mouth in the morning. [facility] docusate 100 mg capsule 2022-0 5-16 00:00: 00 04-11 00:00 :00 No [id number] 200mg Take 2 capsules by mouth once daily as needed for Constipati on. [facility] ibuprofen 600 mg tablet 2022-0 5-16 00:00: 00 04-11 00:00 :00 No [id number] 600mg Take 1 tablet by mouth every 6 (six) hours as needed (Pain). Take with food or milk. [facility] NIFEdipine ER tablet 30 mg 2022- 5-15 22:15: 00 02-28 10:15 :29 No 30mg 30 mg, Oral, DAILY, First dose on Mon02/27/23 at 1715, Until Discontinu ed, Routine [facility] D5W 0.45% NaCl (1/2NS) IV infusion 1,000 mL 02-27 20:30: 00 Yes 1000mL at 75 mL/hr, 1,000 mL, IV Infusion, CONTINUOUS , Starting on Mon02/27/23 at 1530, Until Discontinu ed, Routine [facility] magnesium sulfate in water for injection 20 gram/500 mL (4 %) IV infusion 02-27 18:30: 00 Yes 2g/h 2 g/hr (50 mL/hr), IV Infusion, CONTINUOUS , Starting on Mon02/27/23 at 1330, Until Discontinu ed, ANA [facility] D5W-LR IV infusion 1,000 mL 02-27 18:00: 00 Yes 1000mL at 75 mL/hr, IV Infusion, CONTINUOUS , Starting on Mon02/27/23 at 1300, Until Discontinu ed, ANA [facility] labetaloL (NORMODYNE) injection 40 mg 02-27 17:56: 44 Yes 40mg [Order 1 Start] Name: labetaloL (NORMODYNE ) injection 40 mg Signed Summary: 40 mg, Slow IV Push, PRN - SEE INSTRUCTIO NS, 1 dose, Starting on Mon02/27/23 at 1256, Until Discontinu ed, Routine, If either BP threshold is still exceeded, administer Labetalol 40 mg IV slow IV push (over 2 min). If BP below threshold, continue to monitor BP [Order 1 End] [Order 2 Start] Name: labetaloL (NORMODYNE ) injection 80 mg Signed Summary: 80 mg, Slow IV Push, PRN - SEE INSTRUCTIO NS, 1 dose, Starting on Mon02/27/23 at 1256, Until Discontinu ed, Routine, If either BP threshold is still exceeded, administer Labetalol 80 mg IV slow IV push (over 2 min). If BP below threshold, continue to monitor BP [Order 2 End] [Order 3 Start] Name: hydralAZIN E (APRESOLIN E) injection 10 mg Signed Summary: 10 mg, Slow IV Push, PRN - SEE INSTRUCTIO NS, 1 dose, Starting on Mon02/27/23 at 1256, Until Discontinu ed, Routine, If either BP threshold is still exceeded, administer Hydralazin e 10 mg slow IV push (over 2 min).<br&g t;Indicati on: Hypertensi ve Emergency in [Order 3 End] [facility] LORazepam (ATIVAN) injection 2 mg 02-27 17:56: 42 Yes 2mg 2 mg, Intravenou s, PRN - SEE INSTRUCTIO NS, 2 doses, Starting on Mon02/27/23 at 1256, Until Discontinu ed, Routine, Seizures [facility] calcium gluconate 100 mg/mL (10%) injection 1,000 mg 02-27 17:55: 36 Yes 1000mg 1,000 mg, Slow IV Push, PRN - SEE INSTRUCTIO NS, Starting on Mon02/27/23 at 1255, Until Discontinu ed, Routine, magnesium toxicity [facility] magnesium sulfate 4 mEq/mL (50 %) injection 32.48 mEq 02-27 17:55: 36 Yes 4g 32.48 mEq (4 g), Slow IV Push, PRN - SEE INSTRUCTIO NS, Starting on Mon02/27/23 at 1255, Until Discontinu ed, Routine, For seizure activity (patient not on magnesium sulfate) [facility] magnesium sulfate 4 mEq/mL (50 %) injection 16.24 mEq 02-27 17:55: 36 Yes 2g 16.24 mEq (2 g), Slow IV Push, PRN - SEE INSTRUCTIO NS, 2 doses, Starting on Mon02/27/23 at 1255, Until Discontinu ed, Routine, For seizure activity (patient already on magnesium sulfate) [facility] SERTraline (ZOLOFT) tablet 50 mg 02-27 14:00: 00 Yes 50mg 50 mg, Oral, DAILY, First dose on Mon02/27/23 at 0900, Until Discontinu ed, Routine [facility] rho(D) immune globulin (RHOGAM) syringe 300 mcg 02-27 02:53: 33 Yes 300ug 300 mcg, Intramuscu lar, ONCE, For 1 dose, Conditiona l, Routine [facility] witch Master (TUCKS) 50 % topical pad 02-27 02:53: 25 Yes Topical, Q4HPRN, Starting on 02/26/23 at 2152, Until Discontinu ed, Routine, rectal/hem orrhoidal pain [facility] HYDROcodone -acetaminop hen (NORCO 5) 5-325 mg tablet 1 tablet 02-27 02:53: 25 Yes 1{tbl} 1 tablet, Oral, Q6HPRN, Starting on Mon02/26/23 at 2152, Until Discontinu ed, Routine, Pain (scale 7-10) [facility] ibuprofen (IBU) tablet 600 mg 02-27 02:53: 25 Yes 600mg 600 mg, Oral, Q6HPRN, Starting on Mon02/26/23 at 2152, Until Discontinu ed, Routine, Pain (scale 4-6) [facility] acetaminoph en (TYLENOL) tablet 650 mg 02-27 02:53: 25 Yes 650mg 650 mg, Oral, Q6HPRN, Starting on Mon02/26/23 at 2152, Until Discontinu ed, Routine, Pain (scale 1-3) [facility] diphenhydrA MINE (BENADRYL) tablet 25 mg 02-27 02:53: 25 Yes 25mg 25 mg, Oral, Q6HPRN, Starting on Mon02/26/23 at 2152, Until Discontinu ed, Routine, Sleep, Itching [facility] ondansetron (ZOFRAN (PF)) injection 4 mg 02-27 02:53: 25 Yes 4mg 4 mg, Slow IV Push, Q8HPRN, Starting on Mon02/26/23 at 2152, Until Discontinu ed, Routine, Nausea and Vomiting (N/V) [facility] simethicone (GAS RELIEF (SIMETHICON E)) chewable tablet 160 mg 02-27 02:53: 25 Yes 160mg 160 mg, Oral, PC+HSPRN, Starting on Mon02/26/23 at 2152, Until Discontinu ed, Routine, Gas [facility] docusate (COLACE) capsule 200 mg 02-27 02:53: 25 Yes 200mg 200 mg, Oral, QDAILYPRN, Starting on Mon02/26/23 at 2152, Until Discontinu ed, Routine, Constipati on [facility] magnesium hydroxide (MILK OF MAGNESIA) 400 mg/5 mL suspension 30 mL 02-27 02:53: 25 Yes 30mL 30 mL, Oral, QDAILYPRN, Starting on Mon02/26/23 at 2152, Until Discontinu ed, Routine, Constipati on [facility] benzocaine- menthol (DERMOPLAST ) 20-0.5 % topical spray 02-27 02:53: 25 Yes Topical, PRN, Starting on Mon02/26/23 at 2152, Until Discontinu ed, Routine, Perineum discomfort [facility] FENTanyl PF (SUBLIMAZE (PF)) injection 100 mcg 02-27 01:37: 01 02-27 02:53 :31 No 100ug 100 mcg, Slow IV Push, Q1HPRN, Starting on Mon02/26/23 at 2036, Until Mon02/26/23 at 2152, Routine, contractio n pain without an epidural and SVE < 8 cm and Cat I strip [facility] oxytocin (PITOCIN) 30 units in NS 500 mL IV infusion 02-27 01:09: 29 02-27 03:47 :01 No 600mL/h 600 mL/hr, IV Infusion, PRN, PPH, Starting on Mon02/26/23 at 2008, For 1 dose
As instructed by physician at bedside.<b r> [facility] ferrous sulfate (IRON, FERROUS SULFATE,) 325 mg (65 mg iron) tablet 02-03 00:00: 00 Yes [id number] 325mg Take 1 tablet by mouth in the morning and 1 tablet in the evening. [facility] ferrous sulfate (IRON, FERROUS SULFATE,) 325 mg (65 mg iron) tablet 02-03 00:00: 00 Yes [id number] 325mg Take 1 tablet by mouth in the morning and 1 tablet in the evening. [facility] ferrous sulfate (IRON, FERROUS SULFATE,) 325 mg (65 mg iron) tablet 02-03 00:00: 00 Yes [id number] 325mg Take 1 tablet by mouth in the morning and 1 tablet in the evening. [facility] ferrous sulfate (IRON, FERROUS SULFATE,) 325 mg (65 mg iron) tablet 02-03 00:00: 00 Yes [id number] 325mg Take 1 tablet by mouth in the morning and 1 tablet in the evening. [facility] ferrous sulfate (IRON, FERROUS SULFATE,) 325 mg (65 mg iron) tablet 02-03 00:00: 00 Yes [id number] 325mg Take 1 tablet by mouth in the morning and 1 tablet in the evening. [facility] ferrous sulfate (IRON, FERROUS SULFATE,) 325 mg (65 mg iron) tablet 02-03 00:00: 00 02-28 00:00 :00 No [id number] 325mg Take 1 tablet by mouth in the morning and 1 tablet in the evening. [facility] SERTraline (ZOLOFT) 50 mg tablet 12-20 00:00: 00 Yes [id number] 50mg Take 1 tablet by mouth in the morning. [facility] PNV 67-iron ps-folate no.1-dha (VITAFOL ULTRA) 29 mg iron- 1 mg-200 mg Cap 12-20 00:00: 00 Yes [id number] 1{capsu le} Take 1 capsule by mouth in the morning. [facility] SERTraline (ZOLOFT) 50 mg tablet 12-20 00:00: 00 Yes [id number] 50mg Take 1 tablet by mouth in the morning. [facility] PNV 67-iron ps-folate no.1-dha (VITAFOL ULTRA) 29 mg iron- 1 mg-200 mg Cap 12-20 00:00: 00 Yes [id number] 1{capsu le} Take 1 capsule by mouth in the morning. [facility] SERTraline (ZOLOFT) 50 mg tablet 2022-0 3 00:00: 00 Yes [id number] 50mg Take 1 tablet by mouth in the morning. [facility] PNV 67-iron ps-folate no.1-dha (VITAFOL ULTRA) 29 mg iron- 1 mg-200 mg Cap 2022-0 3- 00:00: 00 Yes [id number] 1{capsu le} Take 1 capsule by mouth in the morning. [facility] SERTraline (ZOLOFT) 50 mg tablet 2022-0 3 00:00: 00 Yes [id number] 50mg Take 1 tablet by mouth in the morning. [facility] PNV 67-iron ps-folate no.1-dha (VITAFOL ULTRA) 29 mg iron- 1 mg-200 mg Cap 2022-0 3 00:00: 00 Yes [id number] 1{capsu le} Take 1 capsule by mouth in the morning. [facility] SERTraline (ZOLOFT) 50 mg tablet 2022-0 3 00:00: 00 Yes [id number] 50mg Take 1 tablet by mouth in the morning. [facility] PNV 67-iron ps-folate no.1-dha (VITAFOL ULTRA) 29 mg iron- 1 mg-200 mg Cap 2022-0 3 00:00: 00 Yes [id number] 1{capsu le} Take 1 capsule by mouth in the morning. [facility] SERTraline (ZOLOFT) 50 mg tablet 2022-0 3 00:00: 00 Yes [id number] 50mg Take 1 tablet by mouth in the morning. [facility] PNV 67-iron ps-folate no.1-dha (VITAFOL ULTRA) 29 mg iron- 1 mg-200 mg Cap 2022-0 3 00:00: 00 Yes [id number] 1{capsu le} Take 1 capsule by mouth in the morning. [facility] SERTraline (ZOLOFT) 50 mg tablet 2022-0 3- 00:00: 00 Yes [id number] 50mg Take 1 tablet by mouth in the morning. [facility] PNV 67-iron ps-folate no.1-dha (VITAFOL ULTRA) 29 mg iron- 1 mg-200 mg Cap 2022-0 3- 00:00: 00 Yes [id number] 1{capsu le} Take 1 capsule by mouth in the morning. [facility] SERTraline (ZOLOFT) 50 mg tablet 2022-0 3- 00:00: 00 Yes [id number] 50mg Take 1 tablet by mouth in the morning. [facility] PNV 67-iron ps-folate no.1-dha (VITAFOL ULTRA) 29 mg iron- 1 mg-200 mg Cap 2022-0 3- 00:00: 00 Yes [id number] 1{capsu le} Take 1 capsule by mouth in the morning. [facility] SERTraline (ZOLOFT) 50 mg tablet 2022-0 3- 00:00: 00 Yes [id number] 50mg Take 1 tablet by mouth in the morning. [facility] 67-iron ps-folate no.1-dha (VITAFOL ULTRA) 29 mg iron- 1 mg-200 mg Cap 2022-0 3- 00:00: 00 Yes [id number] 1{capsu le} Take 1 capsule by mouth in the morning. [facility] SERTraline (ZOLOFT) 50 mg tablet 2022-0 3 00:00: 00 Yes [id number] 50mg Take 1 tablet by mouth in the morning. [facility] ps-fol[facility] no.1-dha (VITAFOL ULTRA) 29 mg iron- 1 mg-200 mg Cap 2022-0 3- 00:00: 00 Yes [id number] 1{capsu le} Take 1 capsule by mouth in the morning. [facility] SERTraline (ZOLOFT) 50 mg tablet 2022-0 3- 00:00: 00 Yes [id number] 50mg Take 1 tablet by mouth in the morning. [facility] PNV 67-iron ps-folate no.1-dha (VITAFOL ULTRA) 29 mg iron- 1 mg-200 mg Cap 2022-0 3- 00:00: 00 Yes [id number] 1{capsu le} Take 1 capsule by mouth in the morning. [facility] SERTraline (ZOLOFT) 50 mg tablet 12-20 00:00: 00 Yes [id number] 50mg Take 1 tablet by mouth in the morning. [facility] SERTraline (ZOLOFT) 50 mg tablet 0 12-20 00:00: 00 Yes [id number] 50mg Take 1 tablet by mouth in the morning. [facility] SERTraline (ZOLOFT) 50 mg tablet 12-20 00:00: 00 Yes [id number] 50mg Take 1 tablet by mouth in the morning. [facility] SERTraline (ZOLOFT) 50 mg tablet 12-20 00:00: 00 Yes [id number] 50mg Take 1 tablet by mouth in the morning. [facility] SERTraline (ZOLOFT) 50 mg tablet 12-20 00:00: 00 Yes [id number] 50mg Take 1 tablet by mouth in the morning. [facility] SERTraline (ZOLOFT) 50 mg tablet 12-20 00:00: 00 Yes [id number] 50mg Take 1 tablet by mouth in the morning. [facility] SERTraline (ZOLOFT) 50 mg tablet 12-20 00:00: 00 Yes [id number] 50mg Take 1 tablet by mouth in the morning. [facility] SERTraline (ZOLOFT) 50 mg tablet 12-20 00:00: 00 Yes [id number] 50mg Take 1 tablet by mouth in the morning. [facility] SERTraline (ZOLOFT) 50 mg tablet 0 12-20 00:00: 00 Yes [id number] 50mg Take 1 tablet by mouth in the morning. [facility] PNV 67-iron ps-folate no.1-dha (VITAFOL ULTRA) 29 mg iron- 1 mg-200 mg Cap 0 3-07 00:00: 00 202-16 00:00 :00 No [id number] 1{capsu le} Take 1 capsule by mouth in the morning. [facility] metroNIDAZO LE 500 mg tablet 3-0 2-08 00:00: 00 Yes [id number] 500mg Take 1 tablet by mouth every 12 (twelve) hours. [facility] metroNIDAZO LE 500 mg tablet 3-0 2-08 00:00: 00 Yes [id number] 500mg Take 1 tablet by mouth every 12 (twelve) hours. [facility] metroNIDAZO LE 500 mg tablet 3-0 2-08 00:00: 00 Yes [id number] 500mg Take 1 tablet by mouth every 12 (twelve) hours. [facility] metroNIDAZO LE 500 mg tablet 3-0 2-08 00:00: 00 Yes [id number] 500mg Take 1 tablet by mouth every 12 (twelve) hours. [facility] metroNIDAZO LE 500 mg tablet 3-0 2-08 00:00: 00 Yes [id number] 500mg Take 1 tablet by mouth every 12 (twelve) hours. [facility] metroNIDAZO LE 500 mg tablet 2022-0 2-08 00:00: 00 Yes [id number] 500mg Take 1 tablet by mouth every 12 (twelve) hours. [facility] metroNIDAZO LE 500 mg tablet 3-0 2-08 00:00: 00 Yes [id number] 500mg Take 1 tablet by mouth every 12 (twelve) hours. [facility] metroNIDAZO LE 500 mg tablet 2022-0 2-08 00:00: 00 02-02 00:00 :00 No [id number] 500mg Take 1 tablet by mouth every 12 (twelve) hours. [facility] fluconazole 200 mg tablet 3-0 2-08 00:00: 00 11-25 05:59 :00 No [id number] 200mg Take 1 tablet by mouth in the morning for 1 day. [facility] metroNIDAZO LE 500 mg tablet 2021-1 2-19 00:00: 00 Yes [id number] 500mg Take 1 tablet by mouth every 12 (twelve) hours. [facility] metroNIDAZO LE 500 mg tablet 2021-1 2-19 00:00: 00 Yes [id number] 500mg Take 1 tablet by mouth every 12 (twelve) hours. [facility] metroNIDAZO LE 500 mg tablet 2021-10 00:00: 00 10-24 00:00 :00 No [id number] 500mg Take 1 tablet by mouth every 12 (twelve) hours. [facility] fluconazole 150 mg tablet 2021-10 00:00: 00 10-04 05:59 :00 No [id number] 150mg Take 1 tablet by mouth once now for 1 dose. [facility] miconazole 100 mg vaginal suppository 2021-10 00:00: 00 Yes [id number] 100mg Insert 1 Suppositor y into vagina at bedtime. [facility] miconazole 100 mg vaginal suppository 2021-10 00:00: 00 Yes [id number] 100mg Insert 1 Suppositor y into vagina at bedtime. [facility] miconazole 100 mg vaginal suppository 2021-10 00:00: 00 Yes [id number] 100mg Insert 1 Suppositor y into vagina at bedtime. [facility] miconazole 100 mg vaginal suppository 2021-10 00:00: 00 10-24 00:00 :00 No [id number] 100mg Insert 1 Suppositor y into vagina at bedtime. [facility] polymyxin B sulf-trimet hoprim 10,000 unit- 1 mg/mL ophthalmic drops 2021-10 00:00: 00 Yes 1[drp] Place 1 Drop in both eyes every 6 (six) hours. [facility] polymyxin B sulf-trimet hoprim 10,000 unit- 1 mg/mL ophthalmic drops 2021-10 00:00: 00 Yes 1[drp] Place 1 Drop in both eyes every 6 (six) hours. [facility] polymyxin B sulf-trimet hoprim 10,000 unit- 1 mg/mL ophthalmic drops 2021-10 00:00: 00 Yes 1[drp] Place 1 Drop in both eyes every 6 (six) hours. [facility] polymyxin B sulf-trimet hoprim 10,000 unit- 1 mg/mL ophthalmic drops 2021-10 00:00: 00 Yes 1[drp] Place 1 Drop in both eyes every 6 (six) hours. [facility]in B sulf-trimet hoprim 10,000 unit- 1 mg/mL ophthalmic drops 2021-10 00:00: 00 Yes 1[drp] Place 1 Drop in both eyes every 6 (six) hours. [facility] polymyxin B sulf-trimet hoprim 10,000 unit- 1 mg/mL ophthalmic drops 2021-10 00:00: 00 Yes 1[drp] Place 1 Drop in both eyes every 6 (six) hours. [facility] polymyxin B sulf-trimet hoprim 10,000 unit- 1 mg/mL ophthalmic drops 2021-10 00:00: 00 Yes 1[drp] Place 1 Drop in both eyes every 6 (six) hours. [facility] polymyxin B sulf-trimet hoprim 10,000 unit- 1 mg/mL ophthalmic drops 2021-10 00:00: 00 Yes 1[drp] Place 1 Drop in both eyes every 6 (six) hours. [facility] polymyxin B sulf-trimet hoprim 10,000 unit- 1 mg/mL ophthalmic drops 2021-10 00:00: 00 Yes 1[drp] Place 1 Drop in both eyes every 6 (six) hours. [facility] polymyxin B sulf-trimet hoprim 10,000 unit- 1 mg/mL ophthalmic drops 2021-10 00:00: 00 Yes 1[drp] Place 1 Drop in both eyes every 6 (six) hours. [facility] polymyxin B sulf-trimet hoprim 10,000 unit- 1 mg/mL ophthalmic drops 2021-10 00:00: 00 Yes 1[drp] Place 1 Drop in both eyes every 6 (six) hours. [facility] polymyxin B sulf-trimet hoprim 10,000 unit- 1 mg/mL ophthalmic drops 2021-10 00:00: 00 Yes 1[drp] Place 1 Drop in both eyes every 6 (six) hours. [facility] polymyxin B sulf-trimet hoprim 10,000 unit- 1 mg/mL ophthalmic drops 2021-10 00:00: 00 Yes 1[drp] Place 1 Drop in both eyes every 6 (six) hours. [facility] polymyxin B sulf-trimet hoprim 10,000 unit- 1 mg/mL ophthalmic drops 2021-10 00:00: 00 Yes 1[drp] Place 1 Drop in both eyes every 6 (six) hours. [facility] polymyxin B sulf-trimet hoprim 10,000 unit- 1 mg/mL ophthalmic drops 2021-10 00:00: 00 Yes 1[drp] Place 1 Drop in both eyes every 6 (six) hours. [facility] polymyxin B sulf-trimet hoprim 10,000 unit- 1 mg/mL ophthalmic drops 2021-10 00:00: 00 Yes 1[drp] Place 1 Drop in both eyes every 6 (six) hours. [facility] polymyxin B sulf-trimet hoprim 10,000 unit- 1 mg/mL ophthalmic drops 2021-10 00:00: 00 02-02 00:00 :00 No 1[drp] Place 1 Drop in both eyes every 6 (six) hours. [facility] moxifloxaci n (VIGAMOX) 0.5 % ophthalmic drops 1 Drop 2021-10 04:00: 00 Yes 1[drp] 1 Drop, Both Eyes, Q6H ABX, First dose on Mon09/16/22 at 2200, Until Discontinu ed, Routine [facility] moxifloxaci n (VIGAMOX) 0.5 % ophthalmic drops 1 Drop 2021-10 04:00: 00 09-17 21:49 :24 No 1[drp] 1 Drop, Both Eyes, Q6H ABX, First dose on Mon09/16/22 at 2200, Until Discontinu ed, Routine [facility] gentamicin 20 mg/ 0.5 mL subconjunct ival syringe 2021-10 00:15: 00 09-17 05:40 :00 No 20mg [facility] gentamicin 20 mg/ 0.5 mL subconjunct ival syringe 2021-10 00:15: 00 09-17 05:40 :00 No 20mg [facility] lactated ringers IV infusion 1,000 mL 2021-10 00:00: 00 Yes 1000mL at 75 mL/hr, 1,000 mL, IV Infusion, CONTINUOUS , Starting on Mon09/16/22 at 1800, Until Discontinu ed, Routine, PACU [facility] amoxicillin -clavulanat e (AUGMENTIN) 875-125 mg per tablet 2021-10 00:00: 00 09-28 05:59 :00 No [id number] 1{tbl} Take 1 tablet by mouth in the morning and 1 tablet in the evening. Do all this for 10 days. [facility] amoxicillin -clavulanat e (AUGMENTIN) 875-125 mg per tablet 2021-10 00:00: 00 09-28 05:59 :00 No [id number] 1{tbl} Take 1 tablet by mouth in the morning and 1 tablet in the evening. Do all this for 10 days. [facility] amoxicillin -clavulanat e (AUGMENTIN) 875-125 mg per tablet 2021-10 00:00: 00 09-28 05:59 :00 No [id number] 1{tbl} Take 1 tablet by mouth in the morning and 1 tablet in the evening. Do all this for 10 days. [facility] amoxicillin -clavulanat e (AUGMENTIN) 875-125 mg per tablet 2021-10 00:00: 00 09-28 05:59 :00 No [id number] 1{tbl} Take 1 tablet by mouth in the morning and 1 tablet in the evening. Do all this for 10 days. [facility] amoxicillin -clavulanat e (AUGMENTIN) 875-125 mg per tablet 2021-10 00:00: 00 09-28 05:59 :00 No [id number] 1{tbl} Take 1 tablet by mouth in the morning and 1 tablet in the evening. Do all this for 10 days. [facility] amoxicillin -clavulanat e (AUGMENTIN) 875-125 mg per tablet 2021-10 2- 00:00: 00 09-28 05:59 :00 No [id number] 1{tbl} Take 1 tablet by mouth in the morning and 1 tablet in the evening. Do all this for 10 days. [facility] amoxicillin -clavulanat e (AUGMENTIN) 875-125 mg per tablet 2021-10 2 00:00: 00 09-28 05:59 :00 No [id number] 1{tbl} Take 1 tablet by mouth in the morning and 1 tablet in the evening. Do all this for 10 days. [facility] amoxicillin -clavulanat e (AUGMENTIN) 875-125 mg per tablet 2021-10 2 00:00: 00 09-28 05:59 :00 No [id number] 1{tbl} Take 1 tablet by mouth in the morning and 1 tablet in the evening. Do all this for 10 days. [facility] amoxicillin -clavulanat e (AUGMENTIN) 875-125 mg per tablet 2021-10 2 00:00: 00 09-28 05:59 :00 No [id number] 1{tbl} Take 1 tablet by mouth in the morning and 1 tablet in the evening. Do all this for 10 days. [facility] moxifloxaci n 0.5 % ophthalmic drops 2021-10 2- 00:00: 00 09-25 05:59 :00 No [id number] 1[drp] Place 1 Drop in both eyes every 6 (six) hours for 7 days. [facility] moxifloxaci n 0.5 % ophthalmic drops 2021-10 2- 00:00: 00 09-25 05:59 :00 No [id number] 1[drp] Place 1 Drop in both eyes every 6 (six) hours for 7 days. [facility] moxifloxaci n 0.5 % ophthalmic drops 2021-10 2 00:00: 00 09-25 05:59 :00 No [id number] 1[drp] Place 1 Drop in both eyes every 6 (six) hours for 7 days. [facility] moxifloxaci n 0.5 % ophthalmic drops 2021-10 2 00:00: 00 09-25 05:59 :00 No [id number] 1[drp] Place 1 Drop in both eyes every 6 (six) hours for 7 days. [facility] moxifloxaci n 0.5 % ophthalmic drops 2021-10 00:00: 00 09-25 05:59 :00 No [id number] 1[drp] Place 1 Drop in both eyes every 6 (six) hours for 7 days. [facility] moxifloxaci n 0.5 % ophthalmic drops 2021-10 00:00: 00 09-25 05:59 :00 No [id number] 1[drp] Place 1 Drop in both eyes every 6 (six) hours for 7 days. [facility] moxifloxaci n 0.5 % ophthalmic drops 2021-10 2 00:00: 00 09-25 05:59 :00 No [id number] 1[drp] Place 1 Drop in both eyes every 6 (six) hours for 7 days. [facility] HYDROcodone -acetaminop hen (NORCO 5) 5-325 mg tablet 1 tablet 2021-10 00:00: 00 09-17 00:23 :00 No 1{tbl} 1 tablet, Oral, ONCE, 1 dose, On Mon09/16/22 at 1800, Routine, PACU [facility] HYDROcodone -acetaminop hen (NORCO 5) 5-325 mg tablet 1 tablet 2021-10 2 00:00: 00 09-17 00:23 :00 No 1{tbl} 1 tablet, Oral, ONCE, 1 dose, On Mon09/16/22 at 1800, Routine, PACU [facility] lactated ringers IV infusion 1,000 mL 2021-10 00:00: 00 09-17 21:49 :24 No 1000mL at 75 mL/hr, 1,000 mL, IV Infusion, CONTINUOUS , Starting on Mon09/16/22 at 1800, Until Mon09/17/22 at 1549, Routine, [facility]U [facility] balanced salt irrig soln comb1 (BSS PLUS) ophthalmic solution 500 mL bag 2021-10 23:24: 00 09-17 00:10 :46 No PRN, Starting on Mon09/16/22 at 1724, Until Mon09/16/22 at 1810, Routine, Intra-op [facility] lidocaine-p henylephrin -BSS(PF) (COMPOUNDED ) 1-1.5 % ophthalmic injection 2021-10 23:17: 00 09-17 00:10 :46 No PRN, Starting on Mon09/16/22 at 1717, Until Mon09/16/22 at 1810, Routine, Intra-op [facility] povidone-io dine (BETADINE) 5 % ophthalmic drops 2021-10 23:17: 00 09-17 00:10 :46 No PRN, Starting on Mon09/16/22 at 1717, Until Mon09/16/22 at 1810, Routine, Intra-op [facility] neomycin-po lymyxin-dex amethasone (MAXITROL) 3.5 mg/g-10,000 unit/g-0.1 % ophthalmic ointment 2021-10 23:17: 00 09-17 00:10 :46 No PRN, Starting on Mon09/16/22 at 1717, Until Mon09/16/22 at 1810, Routine, Intra-op [facility] fluorescein (FUL-NEPTALI) ophthalmic strip 2021-10 23:17: 00 09-17 00:10 :46 No PRN, Starting on Mon09/16/22 at 1717, Until Mon09/16/22 at 1810, Routine, [facility]op [facility] balanced salt irrig soln comb2 (BSS) ophthalmic solution 2021-10 23:17: 00 09-17 00:10 :46 No PRN, Starting on Mon09/16/22 at 1717, Until Mon09/16/22 at 1810, Routine, Intra-op [facility] ceFAZolin (ANCEF) injection 1,000 mg 2021-10 22:30: 00 09-18 22:29 :00 No 1000mg 1,000 mg, Intravenou s, Q8H ABX, 6 doses, First dose on Mon09/16/22 at 1630, Last dose on Mon09/18/22 at 0830
Re ason for Anti-Infec tive: Surgical Prophylaxi s
Surgi kacie Prophylaxi s: Ophthalmol ogy
Dur ation of therapy: within 24 hours of surgery [facility] ceFAZolin (ANCEF) injection 1,000 mg 2021-10 22:30: 00 09-17 21:49 :24 No 1000mg 1,000 mg, Intravenou s, Q8H ABX, 6 doses, First dose on Mon09/16/22 at 1630, Last dose on Mon09/18/22 at 0830
Re ason for Anti-Infec tive: Surgical Prophylaxi s
Surgi kacie Prophylaxi s: Ophthalmol ogy
Dur ation of therapy: within 24 hours of surgery [facility] erythromyci n (ILOTYCIN) 5 mg/gram (0.5 %) ophthalmic ointment 0.5 Inch 2021-10 22:00: 00 09-17 00:13 :49 No .5[in_u s] 0.5 Inch, Both Eyes, QID, First dose on Mon09/16/22 at 1600, Until Discontinu ed, Routine [facility] erythromyci n (ILOTYCIN) 5 mg/gram (0.5 %) ophthalmic ointment 0.5 Inch 2021-10 22:00: 00 09-17 00:13 :49 No .5[in_u s] 0.5 Inch, Both Eyes, QID, First dose on Mon09/16/22 at 1600, Until Discontinu ed, Routine [facility] acetaminoph en (TYLENOL) tablet 650 mg 2021-10 21:28: 41 Yes 650mg 650 mg, Oral, Q6HPRN, Starting on Mon09/16/22 at 1528, Until Discontinu ed, Routine, Pain (scale 1-3) [facility] acetaminoph en (TYLENOL) tablet 650 mg 2021-10 21:28: 41 09-17 21:49 :24 No 650mg 650 mg, Oral, Q6HPRN, Starting on Mon09/16/22 at 1528, Until Mon09/17/22 at 1549, Routine, Pain (scale 1-3) [facility] ondansetron (ZOFRAN (PF)) injection 4 mg 2021-10 21:24: 03 Yes 4mg 4 mg, Slow IV Push, Q6HPRN, Nausea and Vomiting (N/V), Starting on Mon09/16/22 at 1524
Do ses of ondansetro n 16 mg and above need to be administer ed via IV piggyback. For Dose >=24mg ECG monitoring is advisable.
[facility] ondansetron (ZOFRAN (PF)) injection 4 mg 2021-10 21:24: 03 09-17 21:49 :24 No 4mg 4 mg, Slow IV Push, Q6HPRN, Nausea and Vomiting (N/V), Starting on Mon09/16/22 at 1524
Do ses of ondansetro n 16 mg and above need to be administer ed via IV piggyback. For Dose >=24mg ECG monitoring is advisable.
[facility] acetaminoph en (TYLENOL) tablet 650 mg 2021-10 07:30: 00 09-16 06:51 :00 No 650mg 650 mg, Oral, ONCE, 1 dose, On Mon09/16/22 at 0130, ANA [facility] erythromyci n (ILOTYCIN) 5 mg/gram (0.5 %) ophthalmic ointment 0.5 Inch 2021-10 06:45: 00 09-16 06:51 :00 No .5[in_u s] 0.5 Inch, Both Eyes, ONCE, 1 dose, On Mon09/16/22 at 0045, ANA [facility] erythromyci n 5 mg/gram (0.5 %) ophthalmic ointment 2021-10 00:00: 00 09-24 05:59 :00 No [id number] .5[in_u s] Place 0.5 Inches in both eyes 4 (four) times daily for 7 days. Continue until you follow up with eye doctor. [facility] erythromyci n 5 mg/gram (0.5 %) ophthalmic ointment 2021-10 00:00: 00 09-24 05:59 :00 No [id number] .5[in_u s] Place 0.5 Inches in both eyes 4 (four) times daily for 7 days. Continue until you follow up with eye doctor. [facility] erythromyci n 5 mg/gram (0.5 %) ophthalmic ointment 2021-10 00:00: 00 09-17 00:00 :00 No [id number] .5[in_u s] Place 0.5 Inches in both eyes 4 (four) times daily for 7 days. Continue until you follow up with eye doctor. [facility] erythromyci n 5 mg/gram (0.5 %) ophthalmic ointment 2021-10 00:00: 00 09-17 00:00 :00 No [id number] .5[in_u s] Place 0.5 Inches in both eyes 4 (four) times daily for 7 days. Continue until you follow up with eye doctor. [facility] 67-iron ps-folate no.1-dha (VITAFOL ULTRA) 29 mg iron- 1 mg-200 mg Cap 2021-10- 00:00: 00 Yes [id number] 1{capsu le} Take 1 capsule by mouth daily. [facility]NV 67-iron ps-folate no.1-dha (VITAFOL ULTRA) 29 mg iron- 1 mg-200 mg Cap 2021-10 00:00: 00 Yes [id number] 1{capsu le} Take 1 capsule by mouth daily. [facility] 67-iron ps-folate no.1-dha (VITAFOL ULTRA) 29 mg iron- 1 mg-200 mg Cap 2021-10 00:00: 00 Yes [id number] 1{capsu le} Take 1 capsule by mouth daily. [facility] 67-iron ps-folate no.1-dha (VITAFOL ULTRA) 29 mg iron- 1 mg-200 mg Cap 2021-10 00:00: 00 Yes [id number] 1{capsu le} Take 1 capsule by mouth daily. [facility] 67-iron ps-folate no.1-dha (VITAFOL ULTRA) 29 mg iron- 1 mg-200 mg Cap 2021-10 00:00: 00 Yes [id number] 1{capsu le} Take 1 capsule by mouth daily. [facility] 67-iron ps-folate no.1-dha (VITAFOL ULTRA) 29 mg iron- 1 mg-200 mg Cap 2021-10 00:00: 00 Yes [id number] 1{capsu le} Take 1 capsule by mouth daily. [facility] 67-iron ps-folate no.1-dha (VITAFOL ULTRA) 29 mg iron- 1 mg-200 mg Cap 2021-10 00:00: 00 Yes [id number] 1{capsu le} Take 1 capsule by mouth daily. [facility] 67-iron ps-folate no.1-dha (VITAFOL ULTRA) 29 mg iron- 1 mg-200 mg Cap 2021-10 00:00: 00 Yes [id number] 1{capsu le} Take 1 capsule by mouth daily. [facility] 67-iron ps-folate no.1-dha (VITAFOL ULTRA) 29 mg iron- 1 mg-200 mg Cap 2021-10 00:00: 00 Yes [id number] 1{capsu le} Take 1 capsule by mouth daily. [facility] 67-iron ps-folate no.1-dha (VITAFOL ULTRA) 29 mg iron- 1 mg-200 mg Cap 2021-10 00:00: 00 Yes [id number] 1{capsu le} Take 1 capsule by mouth daily. [facility] 67-iron ps-folate no.1-dha (VITAFOL ULTRA) 29 mg iron- 1 mg-200 mg Cap 2021-10 00:00: 00 Yes [id number] 1{capsu le} Take 1 capsule by mouth daily. [facility] 67-iron ps-folate no.1-dha (VITAFOL ULTRA) 29 mg iron- 1 mg-200 mg Cap 2021-10 00:00: 00 Yes [id number] 1{capsu le} Take 1 capsule by mouth daily. [facility] 67-iron ps-folate no.1-dha (VITAFOL ULTRA) 29 mg iron- 1 mg-200 mg Cap 2021-10 00:00: 00 Yes [id number] 1{capsu le} Take 1 capsule by mouth daily. [facility] 67-iron ps-folate no.1-dha (VITAFOL ULTRA) 29 mg iron- 1 mg-200 mg Cap 2021-10 00:00: 00 Yes [id number] 1{capsu le} Take 1 capsule by mouth daily. [facility] 67-iron ps-folate no.1-dha (VITAFOL ULTRA) 29 mg iron- 1 mg-200 mg Cap 2021-10 00:00: 00 Yes [id number] 1{capsu le} Take 1 capsule by mouth daily. [facility] 67-iron ps-folate no.1-dha (VITAFOL ULTRA) 29 mg iron- 1 mg-200 mg Cap 2021-10 00:00: 00 Yes [id number] 1{capsu le} Take 1 capsule by mouth daily. [facility] 67-iron ps-folate no.1-dha (VITAFOL ULTRA) 29 mg iron- 1 mg-200 mg Cap 2021-10 00:00: 00 Yes [id number] 1{capsu le} Take 1 capsule by mouth daily. [facility] 67-iron ps-folate no.1-dha (VITAFOL ULTRA) 29 mg iron- 1 mg-200 mg Cap 2021-10 00:00: 00 Yes [id number] 1{capsu le} Take 1 capsule by mouth daily. [facility] 67-iron ps-folate no.1-dha (VITAFOL ULTRA) 29 mg iron- 1 mg-200 mg Cap 2021-10 00:00: 00 Yes [id number] 1{capsu le} Take 1 capsule by mouth daily. [facility] 67-iron ps-folate no.1-dha (VITAFOL ULTRA) 29 mg iron- 1 mg-200 mg Cap 2021-10 00:00: 00 Yes [id number] 1{capsu le} Take 1 capsule by mouth daily. [facility] 67-iron ps-folate no.1-dha (VITAFOL ULTRA) 29 mg iron- 1 mg-200 mg Cap 2021-10 00:00: 00 12-20 00:00 :00 No [id number] 1{capsu le} Take 1 capsule by mouth daily. [facility] cefTRIAXone (ROCEPHIN) injection 500 mg 2021-10 23:45: 00 08-26 23:07 :00 No [id number] 500mg [facility] cefTRIAXone (ROCEPHIN) injection 500 mg 2021-10 23:45: 00 08-26 23:07 :00 No [id number] 500mg 500 mg, Intramuscu lar, ONCE, 1 dose, On Mon08/26/22 at 1745, ANA
Re ason for Anti-Infec tive: Empiric Non-Surgic al Prophylaxi s
Durat ion of therapy: 72 hours [facility] PNV 102-iron-fo late-dha (VITAFOL FE PLUS) 90 mg iron- 1 mg-200 mg Cap 2021-10 00:00: 00 Yes [id number] Take 1 TAB-CAP/M2 by mouth daily. [facility] pyridoxine, VITAMIN B-6, (VITAMIN B-6) 25 mg tablet 2021-10 00:00: 00 Yes [id number] 25mg Take 1 tablet by mouth every 6 (six) hours as needed for Nausea and Vomiting (N/V). [facility] doxylamine (UNISOM, DOXYLAMINE, ) 25 mg tablet 2021-10 00:00: 00 Yes [id number] 25mg Take 1 tablet by mouth at bedtime as needed for Nausea and Vomiting (N/V). [facility] SERTraline (ZOLOFT) 50 mg tablet 2021-10 00:00: 00 Yes [id number] 50mg Take 1 tablet by mouth in the morning. [facility] 102-iron-fo late-dha (VITAFOL FE PLUS) 90 mg iron- 1 mg-200 mg Cap 2021-10 00:00: 00 Yes [id number] Take 1 TAB-CAP/M2 by mouth daily. [facility] pyridoxine, VITAMIN B-6, (VITAMIN B-6) 25 mg tablet 2021-10 00:00: 00 Yes [id number] 25mg Take 1 tablet by mouth every 6 (six) hours as needed for Nausea and Vomiting (N/V). [facility] doxylamine (UNISOM, DOXYLAMINE, ) 25 mg tablet 2021-10 00:00: 00 Yes [id number] 25mg Take 1 tablet by mouth at bedtime as needed for Nausea and Vomiting (N/V). [facility] SERTraline (ZOLOFT) 50 mg tablet 2021-10 00:00: 00 Yes [id number] 50mg Take 1 tablet by mouth in the morning. [facility] PNV 102-iron-fo late-dha (VITAFOL FE PLUS) 90 mg iron- 1 mg-200 mg Cap 2021-10 00:00: 00 Yes [id number] Take 1 TAB-CAP/M2 by mouth daily. [facility] pyridoxine, VITAMIN B-6, (VITAMIN B-6) 25 mg tablet 2021-10 00:00: 00 Yes [id number] 25mg Take 1 tablet by mouth every 6 (six) hours as needed for Nausea and Vomiting (N/V). [facility] doxylamine (UNISOM, DOXYLAMINE, ) 25 mg tablet 2021-10 00:00: 00 Yes [id number] 25mg Take 1 tablet by mouth at bedtime as needed for Nausea and Vomiting (N/V). [facility] SERTraline (ZOLOFT) 50 mg tablet 2021-10 00:00: 00 Yes [id number] 50mg Take 1 tablet by mouth in the morning. [facility] pyridoxine, VITAMIN B-6, (VITAMIN B-6) 25 mg tablet 2021-10 00:00: 00 Yes [id number] 25mg Take 1 tablet by mouth every 6 (six) hours as needed for Nausea and Vomiting (N/V). [facility] doxylamine (UNISOM, DOXYLAMINE, ) 25 mg tablet 2021-10 00:00: 00 Yes [id number] 25mg Take 1 tablet by mouth at bedtime as needed for Nausea and Vomiting (N/V). [facility] SERTraline (ZOLOFT) 50 mg tablet 2021-10 00:00: 00 Yes [id number] 50mg Take 1 tablet by mouth in the morning. [facility] pyridoxine, VITAMIN B-6, (VITAMIN B-6) 25 mg tablet 2021-10 00:00: 00 Yes [id number] 25mg Take 1 tablet by mouth every 6 (six) hours as needed for Nausea and Vomiting (N/V). [facility] doxylamine (UNISOM, DOXYLAMINE, ) 25 mg tablet 2021-10 00:00: 00 Yes [id number] 25mg Take 1 tablet by mouth at bedtime as needed for Nausea and Vomiting (N/V). [facility] SERTraline (ZOLOFT) 50 mg tablet 2021-10 00:00: 00 Yes [id number] 50mg Take 1 tablet by mouth in the morning. [facility] pyridoxine, VITAMIN B-6, (VITAMIN B-6) 25 mg tablet 2021-10 00:00: 00 Yes [id number] 25mg Take 1 tablet by mouth every 6 (six) hours as needed for Nausea and Vomiting (N/V). [facility] doxylamine (UNISOM, DOXYLAMINE, ) 25 mg tablet 2021-10 00:00: 00 Yes [id number] 25mg Take 1 tablet by mouth at bedtime as needed for Nausea and Vomiting (N/V). [facility] SERTraline (ZOLOFT) 50 mg tablet 2021-10 00:00: 00 Yes [id number] 50mg Take 1 tablet by mouth in the morning. [facility] pyridoxine, VITAMIN B-6, (VITAMIN B-6) 25 mg tablet 2021-10 00:00: 00 Yes [id number] 25mg Take 1 tablet by mouth every 6 (six) hours as needed for Nausea and Vomiting (N/V). [facility] doxylamine (UNISOM, DOXYLAMINE, ) 25 mg tablet 2021-10 00:00: 00 Yes [id number] 25mg Take 1 tablet by mouth at bedtime as needed for Nausea and Vomiting (N/V). [facility] SERTraline (ZOLOFT) 50 mg tablet 2021-10 00:00: 00 Yes [id number] 50mg Take 1 tablet by mouth in the morning. [facility] pyridoxine, VITAMIN B-6, (VITAMIN B-6) 25 mg tablet 2021-10 00:00: 00 Yes [id number] 25mg Take 1 tablet by mouth every 6 (six) hours as needed for Nausea and Vomiting (N/V). [facility] doxylamine (UNISOM, DOXYLAMINE, ) 25 mg tablet 2021-10 00:00: 00 Yes [id number] 25mg Take 1 tablet by mouth at bedtime as needed for Nausea and Vomiting (N/V). [facility] SERTraline (ZOLOFT) 50 mg tablet 2021-10 00:00: 00 Yes [id number] 50mg Take 1 tablet by mouth in the morning. [facility] pyridoxine, VITAMIN B-6, (VITAMIN B-6) 25 mg tablet 2021-10 00:00: 00 Yes [id number] 25mg Take 1 tablet by mouth every 6 (six) hours as needed for Nausea and Vomiting (N/V). [facility] doxylamine (UNISOM, DOXYLAMINE, ) 25 mg tablet 2021-10 00:00: 00 Yes [id number] 25mg Take 1 tablet by mouth at bedtime as needed for Nausea and Vomiting (N/V). [facility] SERTraline (ZOLOFT) 50 mg tablet 2021-10 00:00: 00 Yes [id number] 50mg Take 1 tablet by mouth in the morning. [facility] pyridoxine, VITAMIN B-6, (VITAMIN B-6) 25 mg tablet 2021-10 00:00: 00 Yes [id number] 25mg Take 1 tablet by mouth every 6 (six) hours as needed for Nausea and Vomiting (N/V). [facility] doxylamine (UNISOM, DOXYLAMINE, ) 25 mg tablet 2021-10 00:00: 00 Yes [id number] 25mg Take 1 tablet by mouth at bedtime as needed for Nausea and Vomiting (N/V). [facility] SERTraline (ZOLOFT) 50 mg tablet 2021-10 00:00: 00 Yes [id number] 50mg Take 1 tablet by mouth in the morning. [facility] pyridoxine, VITAMIN B-6, (VITAMIN B-6) 25 mg tablet 2021-10 00:00: 00 Yes [id number] 25mg Take 1 tablet by mouth every 6 (six) hours as needed for Nausea and Vomiting (N/V). [facility] doxylamine (UNISOM, DOXYLAMINE, ) 25 mg tablet 2021-10 00:00: 00 Yes [id number] 25mg Take 1 tablet by mouth at bedtime as needed for Nausea and Vomiting (N/V). [facility] SERTraline (ZOLOFT) 50 mg tablet 2021-10 00:00: 00 Yes [id number] 50mg Take 1 tablet by mouth in the morning. [facility] pyridoxine, VITAMIN B-6, (VITAMIN B-6) 25 mg tablet 2021-10 00:00: 00 Yes [id number] 25mg Take 1 tablet by mouth every 6 (six) hours as needed for Nausea and Vomiting (N/V). [facility] doxylamine (UNISOM, DOXYLAMINE, ) 25 mg tablet 2021-10 00:00: 00 Yes [id number] 25mg Take 1 tablet by mouth at bedtime as needed for Nausea and Vomiting (N/V). [facility] SERTraline (ZOLOFT) 50 mg tablet 2021-10 00:00: 00 Yes [id number] 50mg Take 1 tablet by mouth in the morning. [facility] pyridoxine, VITAMIN B-6, (VITAMIN B-6) 25 mg tablet 2021-10 00:00: 00 Yes [id number] 25mg Take 1 tablet by mouth every 6 (six) hours as needed for Nausea and Vomiting (N/V). [facility] doxylamine (UNISOM, DOXYLAMINE, ) 25 mg tablet 2021-10 00:00: 00 Yes [id number] 25mg Take 1 tablet by mouth at bedtime as needed for Nausea and Vomiting (N/V). [facility] SERTraline (ZOLOFT) 50 mg tablet 2021-10 00:00: 00 Yes [id number] 50mg Take 1 tablet by mouth in the morning. [facility] pyridoxine, VITAMIN B-6, (VITAMIN B-6) 25 mg tablet 2021-10 00:00: 00 Yes [id number] 25mg Take 1 tablet by mouth every 6 (six) hours as needed for Nausea and Vomiting (N/V). [facility] doxylamine (UNISOM, DOXYLAMINE, ) 25 mg tablet 2021-10 00:00: 00 Yes [id number] 25mg Take 1 tablet by mouth at bedtime as needed for Nausea and Vomiting (N/V). [facility] SERTraline (ZOLOFT) 50 mg tablet 2021-10 00:00: 00 Yes [id number] 50mg Take 1 tablet by mouth in the morning. [facility] pyridoxine, VITAMIN B-6, (VITAMIN B-6) 25 mg tablet 2021-10 00:00: 00 Yes [id number] 25mg Take 1 tablet by mouth every 6 (six) hours as needed for Nausea and Vomiting (N/V). [facility] doxylamine (UNISOM, DOXYLAMINE, ) 25 mg tablet 2021-10 00:00: 00 Yes [id number] 25mg Take 1 tablet by mouth at bedtime as needed for Nausea and Vomiting (N/V). [facility] SERTraline (ZOLOFT) 50 mg tablet 2021-10 00:00: 00 Yes [id number] 50mg Take 1 tablet by mouth in the morning. [facility] pyridoxine, VITAMIN B-6, (VITAMIN B-6) 25 mg tablet 2021-10 00:00: 00 Yes [id number] 25mg Take 1 tablet by mouth every 6 (six) hours as needed for Nausea and Vomiting (N/V). [facility] doxylamine (UNISOM, DOXYLAMINE, ) 25 mg tablet 2021-10 00:00: 00 Yes [id number] 25mg Take 1 tablet by mouth at bedtime as needed for Nausea and Vomiting (N/V). [facility] SERTraline (ZOLOFT) 50 mg tablet 2021-10 00:00: 00 Yes [id number] 50mg Take 1 tablet by mouth in the morning. [facility] pyridoxine, VITAMIN B-6, (VITAMIN B-6) 25 mg tablet 2021-10 00:00: 00 Yes [id number] 25mg Take 1 tablet by mouth every 6 (six) hours as needed for Nausea and Vomiting (N/V). [facility] doxylamine (UNISOM, DOXYLAMINE, ) 25 mg tablet 2021-10 00:00: 00 Yes [id number] 25mg Take 1 tablet by mouth at bedtime as needed for Nausea and Vomiting (N/V). [facility] SERTraline (ZOLOFT) 50 mg tablet 2021-10 00:00: 00 Yes [id number] 50mg Take 1 tablet by mouth in the morning. [facility] pyridoxine, VITAMIN B-6, (VITAMIN B-6) 25 mg tablet 2021-10 00:00: 00 Yes [id number] 25mg Take 1 tablet by mouth every 6 (six) hours as needed for Nausea and Vomiting (N/V). [facility] doxylamine (UNISOM, DOXYLAMINE, ) 25 mg tablet 2021-10 00:00: 00 Yes [id number] 25mg Take 1 tablet by mouth at bedtime as needed for Nausea and Vomiting (N/V). [facility] SERTraline (ZOLOFT) 50 mg tablet 2021-10 00:00: 00 Yes [id number] 50mg Take 1 tablet by mouth in the morning. [facility] SERTraline (ZOLOFT) 50 mg tablet 2021-10 00:00: 00 Yes [id number] 50mg Take 1 tablet by mouth in the morning. [facility] SERTraline (ZOLOFT) 50 mg tablet 2021-10 00:00: 00 Yes [id number] 50mg Take 1 tablet by mouth in the morning. [facility] SERTraline (ZOLOFT) 50 mg tablet 2021-10 00:00: 00 Yes [id number] 50mg Take 1 tablet by mouth in the morning. [facility] SERTraline (ZOLOFT) 50 mg tablet 2021-10 00:00: 00 Yes [id number] 50mg Take 1 tablet by mouth in the morning. [facility] SERTraline (ZOLOFT) 50 mg tablet 2021-10 00:00: 00 Yes [id number] 50mg Take 1 tablet by mouth in the morning. [facility] SERTraline (ZOLOFT) 50 mg tablet 2021-10 00:00: 00 Yes [id number] 50mg Take 1 tablet by mouth in the morning. [facility] SERTraline (ZOLOFT) 50 mg tablet 2021-10 00:00: 00 12-20 00:00 :00 No [id number] 50mg Take 1 tablet by mouth in the morning. [facility] pyridoxine, VITAMIN B-6, (VITAMIN B-6) 25 mg tablet 2021-10 00:00: 00 10-24 00:00 :00 No [id number] 25mg Take 1 tablet by mouth every 6 (six) hours as needed for Nausea and Vomiting (N/V). [facility] doxylamine (UNISOM, DOXYLAMINE, ) 25 mg tablet 2021-10 00:00: 00 10-24 00:00 :00 No [id number] 25mg Take 1 tablet by mouth at bedtime as needed for Nausea and Vomiting (N/V). [facility] acetaminoph en (TYLENOL) tablet 650 mg 2021-10 06:45: 00 08-18 06:44 :00 No 650mg 650 mg, Oral, ONCE, 1 dose, On Junie 08/18/22 at 0145, ANA [facility] amoxicillin -clavulanat e 875-125 mg per tablet 2021-10 00:00: 00 08-24 05:59 :00 No [id number] 1{tbl} Take 1 tablet by mouth every 12 (twelve) hours for 5 days. [facility] fluconazole (DIFLUCAN) 200 mg tablet 01-20 00:00: 00 Yes [id number] 200mg Take 1 tablet by mouth daily. [facility] fluconazole (DIFLUCAN) 200 mg tablet 01-20 00:00: 00 08-25 00:00 :00 No [id number] 200mg Take 1 tablet by mouth daily. [facility] SERTraline (ZOLOFT) 50 mg tablet 4 00:00: 00 Yes [id number] 50mg Take 1 tablet by mouth daily. [facility] SERTraline (ZOLOFT) 50 mg tablet 4 00:00: 00 Yes [id number] 50mg Take 1 tablet by mouth daily. [facility] SERTraline (ZOLOFT) 50 mg tablet 01-18 00:00: 00 08-25 00:00 :00 No [id number] 50mg Take 1 tablet by mouth daily. [facility] clotrimazol e-betametha sone cream 2020-10 00:00: 00 Yes Apply a very thin layer to affected area twice daily. [facility] clotrimazol e-betametha sone cream 2020-10 00:00: 00 Yes Apply a very thin layer to affected area twice daily. [facility] clotrimazol e-betametha sone cream 2020-10 00:00: 00 08-25 00:00 :00 No Apply a very thin layer to affected area twice daily. [facility] norethindro ne 0.35 mg tablet 2020-10 00:00: 00 Yes [id number] .35mg Take 1 tablet by mouth daily. [facility] norethindro ne 0.35 mg tablet 2020-10 00:00: 00 Yes [id number] .35mg Take 1 tablet by mouth daily. [facility] norethindro ne 0.35 mg tablet 2020-10 00:00: 00 08-25 00:00 :00 No [id number] .35mg Take 1 tablet by mouth daily. [facility] SERTraline (ZOLOFT) 25 mg tablet 2020-10 2 00:00: 00 01-18 00:00 :00 No [id number] 25mg Take 1 tablet by mouth daily. [facility] docusate calcium 240 mg capsule 2020-10 00:00: 00 Yes [id number] 102 240mg Take 1 capsule by mouth once daily as needed for Constipati on. [facility] docusate calcium 240 mg capsule 2020-10 00:00: 00 Yes [id number] 102 240mg Take 1 capsule by mouth once daily as needed for Constipati on. [facility] docusate calcium 240 mg capsule 2020-10 00:00: 00 08-25 00:00 :00 No [id number] 102 240mg Take 1 capsule by mouth once daily as needed for Constipati on. [facility] cetirizine 10 mg tablet 06-24 00:00: 00 Yes [id number] 10mg Take 1 tablet by mouth daily. [facility] cetirizine 10 mg tablet 06-24 00:00: 00 Yes [id number] 10mg Take 1 tablet by mouth daily. [facility] cetirizine 10 mg tablet 06-24 00:00: 00 08-25 00:00 :00 No [id number] 10mg Take 1 tablet by mouth daily. [facility] ferrous sulfate (IRON, FERROUS SULFATE,) 325 mg (65 mg iron) tablet 03-31 00:00: 00 Yes [id number] 325mg Take 1 tablet by mouth 2 (two) times daily. [facility] ferrous sulfate (IRON, FERROUS SULFATE,) 325 mg (65 mg iron) tablet 03-31 00:00: 00 Yes [id number] 325mg Take 1 tablet by mouth 2 (two) times daily. [facility] ferrous sulfate (IRON, FERROUS SULFATE,) 325 mg (65 mg iron) tablet 03-31 00:00: 00 08-25 00:00 :00 No [id number] 325mg Take 1 tablet by mouth 2 (two) times daily. [facility] ferrous sulfate (IRON, FERROUS SULFATE,) 325 mg (65 mg iron) tablet 03-31 00:00: 00 08-25 00:00 :00 No [id number] 325mg Take 1 tablet by mouth 2 (two) times daily. [facility] PNV 102-iron-fo late-dha (VITAFOL FE PLUS) 90 mg iron- 1 mg-200 mg Cap 03-03 00:00: 00 Yes [id number] Take 1 TAB-CAP/M2 by mouth daily. [facility] PNV 102-iron-fo late-dha (VITAFOL FE PLUS) 90 mg iron- 1 mg-200 mg Cap 03-03 00:00: 00 Yes [id number] Take 1 TAB-CAP/M2 by mouth daily. [facility] PNV 102-iron-fo late-dha (VITAFOL FE PLUS) 90 mg iron- 1 mg-200 mg Cap 03-03 00:00: 00 08-25 00:00 :00 No [id number] Take 1 TAB-CAP/M2 by mouth daily. [facility] PNV 102-iron-fo late-dha (VITAFOL FE PLUS) 90 mg iron- 1 mg-200 mg Cap 03-03 00:00: 00 08-25 00:00 :00 No [id number] Take 1 TAB-CAP/M2 by mouth daily. [facility] metoclopram roberta HCl 10 mg tablet 02-03 00:00: 00 06-24 00:00 :00 No [id number] 10mg Take 1 tablet by mouth every 6 (six) hours as needed for Nausea and Vomiting (N/V). [facility] PNV 102-iron-fo late-dha (VITAFOL FE PLUS) 90 mg iron- 1 mg-200 mg Cap 02-03 00:00: 00 03-03 00:00 :00 No [id number] Take 1 TAB-CAP/M2 by mouth daily. [facility] Immunizations Ordered Immunization Name Filled Immunization Name Date Status Comments Source TDAP 2023-01-10 00:00:00 Completed [facility] TDAP 2023-01-10 00:00:00 Completed [facility] TDAP 2023-01-10 00:00:00 Completed [facility] TDAP 2023-01-10 00:00:00 Completed [facility] TDAP 2023-01-10 00:00:00 Completed [facility] TDAP 2023-01-10 00:00:00 Completed [facility] TDAP 2023-01-10 00:00:00 Completed [facility] TDAP 2023-01-10 00:00:00 Completed [facility] TDAP 2023-01-10 00:00:00 Completed [facility] TDAP 2023-01-10 00:00:00 Completed [facility] TDAP 2023-01-10 00:00:00 Completed [facility] TDAP 2023-01-10 00:00:00 Completed [facility] TDAP 2023-01-10 00:00:00 Completed [facility] TDAP 2023-01-10 00:00:00 Completed [facility] TDAP 2023-01-10 00:00:00 Completed [facility] TDAP 2023-01-10 00:00:00 Completed [facility] TDAP 2023-01-10 00:00:00 Completed [facility] Td 2022-09-16 00:00:00 Completed [facility] Td 2022-09-16 00:00:00 Completed [facility] Td 2022-09-16 00:00:00 Completed [facility] Td 2022-09-16 00:00:00 Completed [facility] Td 2022-09-16 00:00:00 Completed [facility] Td 2022-09-16 00:00:00 Completed [facility] Td 2022-09-16 00:00:00 Completed [facility] Td 2022-09-16 00:00:00 Completed [facility] Td 2022-09-16 00:00:00 Completed [facility] Td 2022-09-16 00:00:00 Completed [facility] Td 2022-09-16 00:00:00 Completed [facility] Td 2022-09-16 00:00:00 Completed [facility] TD, NOS 2022-09-16 00:00:00 Completed [facility] TD, NOS 2022-09-16 00:00:00 Completed [facility] TD, NOS 2022-09-16 00:00:00 Completed [facility] TD, NOS 2022-09-16 00:00:00 Completed [facility] TD, NOS 2022-09-16 00:00:00 Completed [facility] TD, NOS 2022-09-16 00:00:00 Completed [facility] TD, NOS 2022-09-16 00:00:00 Completed [facility] TD, NOS 2022-09-16 00:00:00 Completed [facility] TD, NOS 2022-09-16 00:00:00 Completed [facility] TD, NOS 2022-09-16 00:00:00 Completed [facility] TD, NOS 2022-09-16 00:00:00 Completed [facility] TD, NOS 2022-09-16 00:00:00 Completed [facility] TD, NOS 2022-09-16 00:00:00 Completed [facility] TD, NOS 2022-09-16 00:00:00 Completed [facility] TD, NOS 2022-09-16 00:00:00 Completed [facility] TD, NOS 2022-09-16 00:00:00 Completed [facility] TD, NOS 2022-09-16 00:00:00 Completed [facility] TD, NOS 2022-09-16 00:00:00 Completed [facility] TD, NOS 2022-09-16 00:00:00 Completed [facility] TD, NOS 2022-09-16 00:00:00 Completed [facility] TD, NOS 2022-09-16 00:00:00 Completed [facility] TD, NOS 2022-09-16 00:00:00 Completed [facility] TD, NOS 2022-09-16 00:00:00 Completed [facility] TD, NOS 2022-09-16 00:00:00 Completed [facility] TD, NOS 2022-09-16 00:00:00 Completed [facility] TD, NOS 2022-09-16 00:00:00 Completed [facility] Influenza Virus Vaccine Quad IM, Preserv and ABX Free 6 MO-64 YRS 2022-08-25 00:00:00 Completed [facility] Influenza Virus Vaccine Quad IM, Preserv and ABX Free 6 MO-64 YRS 2022-08-25 00:00:00 Completed [facility] Influenza Virus Vaccine Quad IM, Preserv and ABX Free 6 MO-64 YRS 2022-08-25 00:00:00 Completed [facility] Influenza Virus Vaccine Quad IM, Preserv and ABX Free 6 MO-64 YRS 2022-08-25 00:00:00 Completed [facility] Influenza Virus Vaccine Quad IM, Preserv and ABX Free 6 MO-64 YRS 2022-08-25 00:00:00 Completed [facility] Influenza Virus Vaccine Quad IM, Preserv and ABX Free 6 MO-64 YRS 2022-08-25 00:00:00 Completed [facility] Influenza Virus Vaccine Quad IM, Preserv and ABX Free 6 MO-64 YRS 2022-08-25 00:00:00 Completed [facility] Influenza Virus Vaccine Quad IM, Preserv and ABX Free 6 MO-64 YRS 2022-08-25 00:00:00 Completed [facility] Influenza Virus Vaccine Quad IM, Preserv and ABX Free 6 MO-64 YRS 2022-08-25 00:00:00 Completed [facility] Influenza Virus Vaccine Quad IM, Preserv and ABX Free 6 MO-64 YRS 2022-08-25 00:00:00 Completed [facility] Influenza Virus Vaccine Quad IM, Preserv and ABX Free 6 MO-64 YRS 2022-08-25 00:00:00 Completed [facility] Influenza Virus Vaccine Quad IM, Preserv and ABX Free 6 MO-64 YRS 2022-08-25 00:00:00 Completed [facility] Influenza Virus Vaccine Quad IM, Preserv and ABX Free 6 MO-64 YRS 2022-08-25 00:00:00 Completed [facility] Influenza Virus Vaccine Quad IM, Preserv and ABX Free 6 MO-64 YRS 2022-08-25 00:00:00 Completed [facility] Influenza Virus Vaccine Quad IM, Preserv and ABX Free 6 MO-64 YRS 2022-08-25 00:00:00 Completed [facility] Influenza Virus Vaccine Quad IM, Preserv and ABX Free 6 MO-64 YRS 2022-08-25 00:00:00 Completed [facility] Influenza Virus Vaccine Quad IM, Preserv and ABX Free 6 MO-64 YRS 2022-08-25 00:00:00 Completed [facility] Influenza Virus Vaccine Quad IM, Preserv and ABX Free 6 MO-64 YRS 2022-08-25 00:00:00 Completed [facility] Influenza Virus Vaccine Quad IM, Preserv and ABX Free 6 MO-64 YRS 2022-08-25 00:00:00 Completed [facility] Influenza Virus Vaccine Quad IM, Preserv and ABX Free 6 MO-64 YRS 2022-08-25 00:00:00 Completed [facility] Influenza Virus Vaccine Quad IM, Preserv and ABX Free 6 MO-64 YRS 2022-08-25 00:00:00 Completed [facility] Influenza Virus Vaccine Quad IM, Preserv and ABX Free 6 MO-64 YRS 2022-08-25 00:00:00 Completed [facility] Influenza Virus Vaccine Quad IM, Preserv and ABX Free 6 MO-64 YRS 2022-08-25 00:00:00 Completed [facility] Influenza Virus Vaccine Quad IM, Preserv and ABX Free 6 MO-64 YRS 2022-08-25 00:00:00 Completed [facility] Influenza Virus Vaccine Quad IM, Preserv and ABX Free 6 MO-64 YRS 2022-08-25 00:00:00 Completed [facility] Influenza Virus Vaccine Quad IM, Preserv and ABX Free 6 MO-64 YRS 2022-08-25 00:00:00 Completed [facility] Influenza Virus Vaccine Quad IM, Preserv and ABX Free 6 MO-64 YRS 2022-08-25 00:00:00 Completed [facility] Influenza Virus Vaccine Quad IM, Preserv and ABX Free 6 MO-64 YRS 2022-08-25 00:00:00 Completed [facility] Influenza Virus Vaccine Quad IM, Preserv and ABX Free 6 MO-64 YRS 2022-08-25 00:00:00 Completed [facility] Influenza Virus Vaccine Quad IM, Preserv and ABX Free 6 MO-64 YRS 2022-08-25 00:00:00 Completed [facility] Influenza Virus Vaccine Quad IM, Preserv and ABX Free 6 MO-64 YRS 2022-08-25 00:00:00 Completed [facility] Influenza Virus Vaccine Quad IM, Preserv and ABX Free 6 MO-64 YRS 2022-08-25 00:00:00 Completed [facility] Influenza Virus Vaccine Quad IM, Preserv and ABX Free 6 MO-64 YRS 2022-08-25 00:00:00 Completed [facility] Influenza Virus Vaccine Quad IM, Preserv and ABX Free 6 MO-64 YRS 2022-08-25 00:00:00 Completed [facility] Influenza Virus Vaccine Quad IM, Preserv and ABX Free 6 MO-64 YRS 2022-08-25 00:00:00 Completed [facility] Influenza Virus Vaccine Quad IM, Preserv and ABX Free 6 MO-64 YRS 2022-08-25 00:00:00 Completed [facility] Influenza Virus Vaccine Quad IM, Preserv and ABX Free 6 MO-64 YRS 2022-08-25 00:00:00 Completed [facility] Influenza Virus Vaccine Quad IM, Preserv and ABX Free 6 MO-64 YRS 2022-08-25 00:00:00 Completed [facility] Influenza Virus Vaccine Quad IM, Preserv and ABX Free 6 MO-64 YRS 2022-08-25 00:00:00 Completed [facility] Influenza Virus Vaccine Quad IM, Preserv and ABX Free 6 MO-64 YRS 2022-08-25 00:00:00 Completed [facility] Influenza Virus Vaccine Quad IM, Preserv and ABX Free 6 MO-64 YRS 2022-08-25 00:00:00 Completed [facility] Influenza Virus Vaccine Quad IM, Preserv and ABX Free 6 MO-64 YRS 2022-08-25 00:00:00 Completed [facility] Influenza Virus Vaccine Quad IM, Preserv and ABX Free 6 MO-64 YRS 2022-08-25 00:00:00 Completed [facility] Varicella (varivax)(chicken pox) 2021-09-27 00:00:00 Completed [facility] Varicella (varivax)(chicken pox) 2021-09-27 00:00:00 Completed [facility] Varicella (varivax)(chicken pox) 2021-09-27 00:00:00 Completed [facility] Varicella (varivax)(chicken pox) 2021-09-27 00:00:00 Completed [facility] Varicella (varivax)(chicken pox) 2021-09-27 00:00:00 Completed [facility] Varicella (varivax)(chicken pox) 2021-09-27 00:00:00 Completed [facility] Varicella (varivax)(chicken pox) 2021-09-27 00:00:00 Completed [facility] Varicella (varivax)(chicken pox) 2021-09-27 00:00:00 Completed [facility] Varicella (varivax)(chicken pox) 2021-09-27 00:00:00 Completed [facility] Varicella (varivax)(chicken pox) 2021-09-27 00:00:00 Completed [facility] Varicella (varivax)(chicken pox) 2021-09-27 00:00:00 Completed [facility] Varicella (varivax)(chicken pox) 2021-09-27 00:00:00 Completed [facility] Varicella (varivax)(chicken pox) 2021-09-27 00:00:00 Completed [facility] Varicella (varivax)(chicken pox) 2021-09-27 00:00:00 Completed [facility] Varicella (varivax)(chicken pox) 2021-09-27 00:00:00 Completed [facility] Varicella (varivax)(chicken pox) 2021-09-27 00:00:00 Completed [facility] Varicella (varivax)(chicken pox) 2021-09-27 00:00:00 Completed [facility] Varicella (varivax)(chicken pox) 2021-09-27 00:00:00 Completed [facility] Varicella (varivax)(chicken pox) 2021-09-27 00:00:00 Completed [facility] Varicella (varivax)(chicken pox) 2021-09-27 00:00:00 Completed [facility] Varicella (varivax)(chicken pox) 2021-09-27 00:00:00 Completed [facility] Varicella (varivax)(chicken pox) 2021-09-27 00:00:00 Completed [facility] Varicella (varivax)(chicken pox) 2021-09-27 00:00:00 Completed [facility] Varicella (varivax)(chicken pox) 2021-09-27 00:00:00 Completed [facility] Varicella (varivax)(chicken pox) 2021-09-27 00:00:00 Completed [facility] Varicella (varivax)(chicken pox) 2021-09-27 00:00:00 Completed [facility] Varicella (varivax)(chicken pox) 2021-09-27 00:00:00 Completed [facility] Varicella (varivax)(chicken pox) 2021-09-27 00:00:00 Completed [facility] Varicella (varivax)(chicken pox) 2021-09-27 00:00:00 Completed [facility] Varicella (varivax)(chicken pox) 2021-09-27 00:00:00 Completed [facility] Varicella (varivax)(chicken pox) 2021-09-27 00:00:00 Completed [facility] Varicella (varivax)(chicken pox) 2021-09-27 00:00:00 Completed [facility] Varicella (varivax)(chicken pox) 2021-09-27 00:00:00 Completed [facility] Varicella (varivax)(chicken pox) 2021-09-27 00:00:00 Completed [facility] Varicella (varivax)(chicken pox) 2021-09-27 00:00:00 Completed [facility] Varicella (varivax)(chicken pox) 2021-09-27 00:00:00 Completed [facility] Varicella (varivax)(chicken pox) 2021-09-27 00:00:00 Completed [facility] Varicella (varivax)(chicken pox) 2021-09-27 00:00:00 Completed [facility] Varicella (varivax)(chicken pox) 2021-09-27 00:00:00 Completed [facility] Varicella (varivax)(chicken pox) 2021-09-27 00:00:00 Completed [facility] Varicella (varivax)(chicken pox) 2021-09-27 00:00:00 Completed [facility] Varicella (varivax)(chicken pox) 2021-09-27 00:00:00 Completed [facility] Varicella (varivax)(chicken pox) 2021-09-27 00:00:00 Completed [facility] Varicella (varivax)(chicken pox) 2021-09-27 00:00:00 Completed [facility] Varicella (varivax)(chicken pox) 2021-09-27 00:00:00 Completed [facility] Influenza Virus Vaccine Quad IM, Preserv and ABX Free 6 MO-64 YRS 2021-08-12 00:00:00 Completed [facility] Influenza Virus Vaccine Quad IM, Preserv and ABX Free 6 MO-64 YRS 2021-08-12 00:00:00 Completed [facility] Influenza Virus Vaccine Quad IM, Preserv and ABX Free 6 MO-64 YRS 2021-08-12 00:00:00 Completed [facility] Influenza Virus Vaccine Quad IM, Preserv and ABX Free 6 MO-64 YRS 2021-08-12 00:00:00 Completed [facility] Influenza Virus Vaccine Quad IM, Preserv and ABX Free 6 MO-64 YRS 2021-08-12 00:00:00 Completed [facility] Influenza Virus Vaccine Quad IM, Preserv and ABX Free 6 MO-64 YRS 2021-08-12 00:00:00 Completed [facility] Influenza Virus Vaccine Quad IM, Preserv and ABX Free 6 MO-64 YRS 2021-08-12 00:00:00 Completed [facility] Influenza Virus Vaccine Quad IM, Preserv and ABX Free 6 MO-64 YRS 2021-08-12 00:00:00 Completed [facility] Influenza Virus Vaccine Quad IM, Preserv and ABX Free 6 MO-64 YRS 2021-08-12 00:00:00 Completed [facility] Influenza Virus Vaccine Quad IM, Preserv and ABX Free 6 MO-64 YRS 2021-08-12 00:00:00 Completed [facility] Influenza Virus Vaccine Quad IM, Preserv and ABX Free 6 MO-64 YRS 2021-08-12 00:00:00 Completed [facility] Influenza Virus Vaccine Quad IM, Preserv and ABX Free 6 MO-64 YRS 2021-08-12 00:00:00 Completed [facility] Influenza Virus Vaccine Quad IM, Preserv and ABX Free 6 MO-64 YRS 2021-08-12 00:00:00 Completed [facility] Influenza Virus Vaccine Quad IM, Preserv and ABX Free 6 MO-64 YRS 2021-08-12 00:00:00 Completed [facility] Influenza Virus Vaccine Quad IM, Preserv and ABX Free 6 MO-64 YRS 2021-08-12 00:00:00 Completed [facility] Influenza Virus Vaccine Quad IM, Preserv and ABX Free 6 MO-64 YRS 2021-08-12 00:00:00 Completed [facility] Influenza Virus Vaccine Quad IM, Preserv and ABX Free 6 MO-64 YRS 2021-08-12 00:00:00 Completed [facility] Influenza Virus Vaccine Quad IM, Preserv and ABX Free 6 MO-64 YRS 2021-08-12 00:00:00 Completed [facility] Influenza Virus Vaccine Quad IM, Preserv and ABX Free 6 MO-64 YRS 2021-08-12 00:00:00 Completed [facility] Influenza Virus Vaccine Quad IM, Preserv and ABX Free 6 MO-64 YRS 2021-08-12 00:00:00 Completed [facility] Influenza Virus Vaccine Quad IM, Preserv and ABX Free 6 MO-64 YRS 2021-08-12 00:00:00 Completed [facility] Influenza Virus Vaccine Quad IM, Preserv and ABX Free 6 MO-64 YRS 2021-08-12 00:00:00 Completed [facility] Influenza Virus Vaccine Quad IM, Preserv and ABX Free 6 MO-64 YRS 2021-08-12 00:00:00 Completed [facility] Influenza Virus Vaccine Quad IM, Preserv and ABX Free 6 MO-64 YRS 2021-08-12 00:00:00 Completed [facility] Influenza Virus Vaccine Quad IM, Preserv and ABX Free 6 MO-64 YRS 2021-08-12 00:00:00 Completed [facility] Influenza Virus Vaccine Quad IM, Preserv and ABX Free 6 MO-64 YRS 2021-08-12 00:00:00 Completed [facility] Influenza Virus Vaccine Quad IM, Preserv and ABX Free 6 MO-64 YRS 2021-08-12 00:00:00 Completed [facility] Influenza Virus Vaccine Quad IM, Preserv and ABX Free 6 MO-64 YRS 2021-08-12 00:00:00 Completed [facility] Influenza Virus Vaccine Quad IM, Preserv and ABX Free 6 MO-64 YRS 2021-08-12 00:00:00 Completed [facility] Influenza Virus Vaccine Quad IM, Preserv and ABX Free 6 MO-64 YRS 2021-08-12 00:00:00 Completed [facility] Influenza Virus Vaccine Quad IM, Preserv and ABX Free 6 MO-64 YRS 2021-08-12 00:00:00 Completed [facility] Influenza Virus Vaccine Quad IM, Preserv and ABX Free 6 MO-64 YRS 2021-08-12 00:00:00 Completed [facility] Influenza Virus Vaccine Quad IM, Preserv and ABX Free 6 MO-64 YRS 2021-08-12 00:00:00 Completed [facility] Influenza Virus Vaccine Quad IM, Preserv and ABX Free 6 MO-64 YRS 2021-08-12 00:00:00 Completed [facility] Influenza Virus Vaccine Quad IM, Preserv and ABX Free 6 MO-64 YRS 2021-08-12 00:00:00 Completed [facility] Influenza Virus Vaccine Quad IM, Preserv and ABX Free 6 MO-64 YRS 2021-08-12 00:00:00 Completed [facility] Influenza Virus Vaccine Quad IM, Preserv and ABX Free 6 MO-64 YRS 2021-08-12 00:00:00 Completed [facility] Influenza Virus Vaccine Quad IM, Preserv and ABX Free 6 MO-64 YRS 2021-08-12 00:00:00 Completed [facility] Influenza Virus Vaccine Quad IM, Preserv and ABX Free 6 MO-64 YRS 2021-08-12 00:00:00 Completed [facility] Influenza Virus Vaccine Quad IM, Preserv and ABX Free 6 MO-64 YRS 2021-08-12 00:00:00 Completed [facility] Influenza Virus Vaccine Quad IM, Preserv and ABX Free 6 MO-64 YRS 2021-08-12 00:00:00 Completed [facility] Influenza Virus Vaccine Quad IM, Preserv and ABX Free 6 MO-64 YRS 2021-08-12 00:00:00 Completed [facility] Influenza Virus Vaccine Quad IM, Preserv and ABX Free 6 MO-64 YRS 2021-08-12 00:00:00 Completed [facility] Influenza Virus Vaccine Quad IM, Preserv and ABX Free 6 MO-64 YRS 2021-08-12 00:00:00 Completed [facility] Influenza Virus Vaccine Quad IM, Preserv and ABX Free 6 MO-64 YRS 2021-08-12 00:00:00 Completed [facility] TDAP 2021-06-09 00:00:00 Completed [facility] TDAP 2021-06-09 00:00:00 Completed [facility] TDAP 2021-06-09 00:00:00 Completed [facility] TDAP 2021-06-09 00:00:00 Completed [facility] TDAP 2021-06-09 00:00:00 Completed [facility] TDAP 2021-06-09 00:00:00 Completed [facility] TDAP 2021-06-09 00:00:00 Completed [facility] TDAP 2021-06-09 00:00:00 Completed [facility] TDAP 2021-06-09 00:00:00 Completed [facility] TDAP 2021-06-09 00:00:00 Completed [facility] TDAP 2021-06-09 00:00:00 Completed [facility] TDAP 2021-06-09 00:00:00 Completed [facility] TDAP 2021-06-09 00:00:00 Completed [facility] TDAP 2021-06-09 00:00:00 Completed [facility] TDAP 2021-06-09 00:00:00 Completed [facility] TDAP 2021-06-09 00:00:00 Completed [facility] TDAP 2021-06-09 00:00:00 Completed [facility] TDAP 2021-06-09 00:00:00 Completed [facility] TDAP 2021-06-09 00:00:00 Completed [facility] TDAP 2021-06-09 00:00:00 Completed [facility] TDAP 2021-06-09 00:00:00 Completed [facility] TDAP 2021-06-09 00:00:00 Completed [facility] TDAP 2021-06-09 00:00:00 Completed [facility] TDAP 2021-06-09 00:00:00 Completed [facility] TDAP 2021-06-09 00:00:00 Completed [facility] TDAP 2021-06-09 00:00:00 Completed [facility] TDAP 2021-06-09 00:00:00 Completed [facility] TDAP 2021-06-09 00:00:00 Completed [facility] TDAP 2021-06-09 00:00:00 Completed [facility] TDAP 2021-06-09 00:00:00 Completed [facility] TDAP 2021-06-09 00:00:00 Completed [facility] TDAP 2021-06-09 00:00:00 Completed [facility] TDAP 2021-06-09 00:00:00 Completed [facility] TDAP 2021-06-09 00:00:00 Completed [facility] TDAP 2021-06-09 00:00:00 Completed [facility] TDAP 2021-06-09 00:00:00 Completed [facility] TDAP 2021-06-09 00:00:00 Completed [facility] TDAP 2021-06-09 00:00:00 Completed [facility] TDAP 2021-06-09 00:00:00 Completed [facility] TDAP 2021-06-09 00:00:00 Completed [facility] TDAP 2021-06-09 00:00:00 Completed [facility] TDAP 2021-06-09 00:00:00 Completed [facility] TDAP 2021-06-09 00:00:00 Completed [facility] TDAP 2021-06-09 00:00:00 Completed [facility] TDAP 2021-06-09 00:00:00 Completed [facility] Influenza Virus Vaccine Quad .5 mL IM 6+ MO 2020-07-20 00:00:00 Completed [facility] Influenza Virus Vaccine Quad .5 mL IM 6+ MO 2020-07-20 00:00:00 Completed [facility] Influenza Virus Vaccine Quad .5 mL IM 6+ MO 2020-07-20 00:00:00 Completed [facility] Influenza Virus Vaccine Quad .5 mL IM 6+ MO 2020-07-20 00:00:00 Completed [facility] Influenza Virus Vaccine Quad .5 mL IM 6+ MO 2020-07-20 00:00:00 Completed [facility] Influenza Virus Vaccine Quad .5 mL IM 6+ MO 2020-07-20 00:00:00 Completed [facility] Influenza Virus Vaccine Quad .5 mL IM 6+ MO 2020-07-20 00:00:00 Completed [facility] Influenza Virus Vaccine Quad .5 mL IM 6+ MO 2020-07-20 00:00:00 Completed [facility] Influenza Virus Vaccine Quad .5 mL IM 6+ MO 2020-07-20 00:00:00 Completed [facility] Influenza Virus Vaccine Quad .5 mL IM 6+ MO 2020-07-20 00:00:00 Completed [facility] Influenza Virus Vaccine Quad .5 mL IM 6+ MO 2020-07-20 00:00:00 Completed [facility] Influenza Virus Vaccine Quad .5 mL IM 6+ MO 2020-07-20 00:00:00 Completed [facility] Influenza Virus Vaccine Quad .5 mL IM 6+ MO 2020-07-20 00:00:00 Completed [facility] Influenza Virus Vaccine Quad .5 mL IM 6+ MO 2020-07-20 00:00:00 Completed [facility] Influenza Virus Vaccine Quad .5 mL IM 6+ MO 2020-07-20 00:00:00 Completed [facility] Influenza Virus Vaccine Quad .5 mL IM 6+ MO 2020-07-20 00:00:00 Completed [facility] Influenza Virus Vaccine Quad .5 mL IM 6+ MO 2020-07-20 00:00:00 Completed [facility] Influenza Virus Vaccine Quad .5 mL IM 6+ MO 2020-07-20 00:00:00 Completed [facility] Influenza Virus Vaccine Quad .5 mL IM 6+ MO 2020-07-20 00:00:00 Completed [facility] Influenza Virus Vaccine Quad .5 mL IM 6+ MO 2020-07-20 00:00:00 Completed [facility] Influenza Virus Vaccine Quad .5 mL IM 6+ MO 2020-07-20 00:00:00 Completed [facility] Influenza Virus Vaccine Quad .5 mL IM 6+ MO 2020-07-20 00:00:00 Completed [facility] Influenza Virus Vaccine Quad .5 mL IM 6+ MO 2020-07-20 00:00:00 Completed [facility] Influenza Virus Vaccine Quad .5 mL IM 6+ MO 2020-07-20 00:00:00 Completed [facility] Influenza Virus Vaccine Quad .5 mL IM 6+ MO 2020-07-20 00:00:00 Completed [facility] Influenza Virus Vaccine Quad .5 mL IM 6+ MO 2020-07-20 00:00:00 Completed [facility] Influenza Virus Vaccine Quad .5 mL IM 6+ MO 2020-07-20 00:00:00 Completed [facility] Influenza Virus Vaccine Quad .5 mL IM 6+ MO 2020-07-20 00:00:00 Completed [facility] Influenza Virus Vaccine Quad .5 mL IM 6+ MO 2020-07-20 00:00:00 [facility] [facility] Influenza Virus Vaccine Quad .5 mL IM 6+ MO 2020-07-20 00:00:00 Completed [facility] Influenza Virus Vaccine Quad .5 mL IM 6+ MO 2020-07-20 00:00:00 Completed [facility] Influenza Virus Vaccine Quad .5 mL IM 6+ MO 2020-07-20 00:00:00 Completed [facility] Influenza Virus Vaccine Quad .5 mL IM 6+ MO 2020-07-20 00:00:00 Completed [facility] Influenza Virus Vaccine Quad .5 mL IM 6+ MO 2020-07-20 00:00:00 Completed [facility] Influenza Virus Vaccine Quad .5 mL IM 6+ MO 2020-07-20 00:00:00 Completed [facility] Influenza Virus Vaccine Quad .5 mL IM 6+ MO 2020-07-20 00:00:00 Completed [facility] Influenza Virus Vaccine Quad .5 mL IM 6+ MO 2020-07-20 00:00:00 Completed [facility] Influenza Virus Vaccine Quad .5 mL IM 6+ MO 2020-07-20 00:00:00 Completed [facility] Influenza Virus Vaccine Quad .5 mL IM 6+ MO 2020-07-20 00:00:00 Completed [facility] Influenza Virus Vaccine Quad .5 mL IM 6+ MO 2020-07-20 00:00:00 Completed [facility] Influenza Virus Vaccine Quad .5 mL IM 6+ MO 2020-07-20 00:00:00 Completed [facility] Influenza Virus Vaccine Quad .5 mL IM 6+ MO 2020-07-20 00:00:00 Completed [facility] Influenza Virus Vaccine Quad .5 mL IM 6+ MO 2020-07-20 00:00:00 Completed [facility] Influenza Virus Vaccine Quad .5 mL IM 6+ MO 2020-07-20 00:00:00 Completed [facility] Influenza Virus Vaccine Quad .5 mL IM 6+ MO 2020-07-20 00:00:00 Completed [facility] TDAP 2020-04-24 00:00:00 Completed [facility] TDAP 2020-04-24 00:00:00 Completed [facility] TDAP 2020-04-24 00:00:00 Completed [facility] TDAP 2020-04-24 00:00:00 Completed [facility] TDAP 2020-04-24 00:00:00 Completed [facility] TDAP 2020-04-24 00:00:00 Completed [facility] TDAP 2020-04-24 00:00:00 Completed [facility] TDAP 2020-04-24 00:00:00 Completed [facility] TDAP 2020-04-24 00:00:00 Completed [facility] TDAP 2020-04-24 00:00:00 Completed [facility] TDAP 2020-04-24 00:00:00 Completed [facility] TDAP 2020-04-24 00:00:00 Completed [facility] TDAP 2020-04-24 00:00:00 Completed [facility] TDAP 2020-04-24 00:00:00 Completed [facility] TDAP 2020-04-24 00:00:00 Completed [facility] TDAP 2020-04-24 00:00:00 Completed [facility] TDAP 2020-04-24 00:00:00 Completed [facility] TDAP 2020-04-24 00:00:00 Completed [facility] TDAP 2020-04-24 00:00:00 Completed [facility] TDAP 2020-04-24 00:00:00 Completed [facility] TDAP 2020-04-24 00:00:00 Completed [facility] TDAP 2020-04-24 00:00:00 Completed [facility] TDAP 2020-04-24 00:00:00 Completed [facility] TDAP 2020-04-24 00:00:00 Completed [facility] TDAP 2020-04-24 00:00:00 Completed [facility] TDAP 2020-04-24 00:00:00 Completed [facility] TDAP 2020-04-24 00:00:00 Completed [facility] TDAP 2020-04-24 00:00:00 Completed [facility] TDAP 2020-04-24 00:00:00 Completed [facility] TDAP 2020-04-24 00:00:00 Completed [facility] TDAP 2020-04-24 00:00:00 Completed [facility] TDAP 2020-04-24 00:00:00 Completed [facility] TDAP 2020-04-24 00:00:00 Completed [facility] TDAP 2020-04-24 00:00:00 Completed [facility] TDAP 2020-04-24 00:00:00 Completed [facility] TDAP 2020-04-24 00:00:00 Completed [facility] TDAP 2020-04-24 00:00:00 Completed [facility] TDAP 2020-04-24 00:00:00 Completed [facility] TDAP 2020-04-24 00:00:00 Completed [facility] TDAP 2020-04-24 00:00:00 Completed [facility] TDAP 2020-04-24 00:00:00 Completed [facility] TDAP 2020-04-24 00:00:00 Completed [facility] TDAP 2020-04-24 00:00:00 Completed [facility] TDAP 2020-04-24 00:00:00 Completed [facility] TDAP 2020-04-24 00:00:00 Completed [facility] DTAP 2004-04-29 00:00:00 Completed [facility] MMR 2004-04-29 00:00:00 Completed [facility] Polio (IPV/OPV) 2004-04-29 00:00:00 Completed [facility] DTAP 2004-04-29 00:00:00 Completed [facility] MMR 2004-04-29 00:00:00 Completed [facility] Polio (IPV/OPV) 2004-04-29 00:00:00 Completed [facility] TDAP Unknown Completed [facility] Influenza Virus Vaccine Quad .5 mL IM 6+ MO (FLUZONE/FLULAVAL/F LUARIX) Unknown Completed [facility] TDAP Unknown Completed [facility] Influenza Virus Vaccine Quad IM, Preserv and ABX Free 6 MO-64 YRS (FLUCELVAX) Unknown Completed [facility] Varicella (varivax)(chicken pox) Unknown Completed [facility] Influenza Virus Vaccine Quad IM, Preserv and ABX Free 6 MO-64 YRS (FLUCELVAX) Unknown Completed [facility] TD, NOS Unknown Completed [facility] TDAP Unknown Completed [facility] TDAP Unknown Completed [facility] Influenza Virus Vaccine Quad .5 mL IM 6+ MO (FLUZONE/FLULAVAL/F LUARIX) Unknown Completed [facility] TDAP Unknown Completed [facility] Influenza Virus Vaccine Quad IM, Preserv and ABX Free 6 MO-64 YRS (FLUCELVAX) Unknown Completed [facility] Varicella (varivax)(chicken pox) Unknown Completed [facility] Influenza Virus Vaccine Quad IM, Preserv and ABX Free 6 MO-64 YRS (FLUCELVAX) Unknown Completed [facility] TD, NOS Unknown Completed [facility] TDAP Unknown Completed [facility] Influenza Virus Vaccine Quad .5 mL IM 6+ MO (FLUZONE/FLULAVAL/F LUARIX) Unknown Completed [facility] TDAP Unknown Completed [facility] Influenza Virus Vaccine Quad IM, Preserv and ABX Free 6 MO-64 YRS (FLUCELVAX) Unknown Completed [facility] Varicella (varivax)(chicken pox) Unknown Completed [facility] TDAP Unknown Completed [facility] Influenza Virus Vaccine Quad .5 mL IM 6+ MO (FLUZONE/FLULAVAL/F LUARIX) Unknown Completed [facility] TDAP Unknown Completed [facility] TDAP Unknown Completed [facility] Influenza Virus Vaccine Quad .5 mL IM 6+ MO (FLUZONE/FLULAVAL/F LUARIX) Unknown Completed [facility] TDAP Unknown Completed [facility] TDAP Unknown Completed [facility] Influenza Virus Vaccine Quad .5 mL IM 6+ MO (FLUZONE/FLULAVAL/F LUARIX) Unknown Completed [facility] TDAP Unknown Completed [facility] Influenza Virus Vaccine Quad .5 mL IM 6+ MO (FLUZONE/FLULAVAL/F LUARIX) Unknown Completed [facility] TDAP Unknown Completed [facility] Influenza Virus Vaccine Quad .5 mL IM 6+ MO (FLUZONE/FLULAVAL/F LUARIX) Unknown Completed [facility] TDAP Unknown Completed [facility] Influenza Virus Vaccine Quad .5 mL IM 6+ MO (FLUZONE/FLULAVAL/F LUARIX) Unknown Completed [facility] TDAP Unknown Completed [facility] Influenza Virus Vaccine Quad .5 mL IM 6+ MO (FLUZONE/FLULAVAL/F LUARIX) Unknown Completed [facility] TDAP Unknown Completed [facility] TDAP Unknown Completed [facility] TDAP Unknown Completed [facility] TDAP Unknown Completed [facility] Vital Signs Vital Name Observation Time Observation Value Comments S estelle Systolic blood pressure 2023-05-22 21:23:00 116 mm[Hg] [facility] Diastolic blood pressure 2023-05-22 21:23:00 72 mm[Hg] [facility] Heart rate 2023-05-22 21:23:00 100 /min [facility] Body temperature 2023-05-22 21:23:00 36.17 Cee [facility] Respiratory rate 2023-05-22 21:23:00 16 /min [facility] Body height 2023-05-22 21:23:00 157.5 cm [facility] 2023-05-22 21:23:00 66.86 kg [facility] BMI 2023-05-22 21:23:00 26.96 kg/m2 [facility] Oxygen saturation in Arterial blood by Pulse oximetry 2023-05-22 21:23:00 100 /min [facility] Systolic blood pressure 2023-04-11 14:44:00 113 mm[Hg] [facility] Diastolic blood pressure 2023-04-11 14:44:00 68 mm[Hg] [facility] Heart rate 2023-04-11 14:44:00 90 /min [facility] Body temperature 2023-04-11 14:44:00 37.17 Cee [facility] Body height 2023-04-11 14:44:00 157.5 cm [facility] Body weight 2023-04-11 14:44:00 66.679 kg [facility] BMI 2023-04-11 14:44:00 26.89 kg/m2 [facility] Systolic blood pressure 2023-03-03 15:16:00 124 mm[Hg] [facility] Diastolic blood pressure 2023-03-03 15:16:00 78 mm[Hg] [facility] Heart rate 2023-03-03 15:15:00 96 /min [facility] Body temperature 2023-03-03 15:15:00 36.89 Cee [facility] Respiratory rate 2023-03-03 15:15:00 18 /min [facility] Body height 2023-03-03 15:15:00 157.5 cm [facility] Body weight 2023-03-03 15:15:00 70.67 kg [facility] BMI 2023-03-03 15:15:00 28.50 kg/m2 [facility] Systolic blood pressure 2023-03-01 08:30:00 120 mm[Hg] [facility] Diastolic blood pressure 2023-03-01 08:30:00 73 mm[Hg] [facility] Body temperature 2023-03-01 08:30:00 36.78 Cee [facility] Heart rate 2023-02-28 21:00:00 93 /min [facility] Respiratory rate 2023-02-28 21:00:00 18 /min [facility] Oxygen saturation in Arterial blood by Pulse oximetry 2023-02-28 21:00:00 100 /min [facility] Body height 2023-02-27 03:20:[address] [facility] Body weight 2023-02-27 03:20:[address] [facility] BMI 2023-02-27 03:20:00 31.28 kg/m2 [facility] Systolic blood pressure 2023-02-21 19:10:00 132 mm[Hg] [facility] Diastolic blood pressure 2023-02-21 19:10:00 87 mm[Hg] [facility] Heart rate 2023-02-21 19:10:00 93 /min [facility] Body temperature 2023-02-21 19:10:00 36.67 Cee [facility] Respiratory rate 2023-02-21 19:10:00 18 /min [facility] Body height 2023-02-21 19:10:[address] [facility] Body weight 2023-02-21 19:10:[address] [facility] BMI 2023-02-21 19:10:00 31.02 kg/m2 [facility] Oxygen saturation in Arterial blood by Pulse oximetry 2023-02-21 19:10:00 99 /min [facility] Systolic blood pressure 2023-02-14 15:19:00 118 mm[Hg] [facility] Diastolic blood pressure 2023-02-14 15:19:00 79 mm[Hg] [facility] Heart rate 2023-02-14 15:19:00 105 /min [facility] Body temperature 2023-02-14 15:19:00 36.72 Cee [facility] Respiratory rate 2023-02-14 15:19:00 18 /min [facility] Body height 2023-02-14 15:19:00 157.5 cm [facility] 2023-02-14 15:19:00 77.293 kg [facility] BMI 2023-02-14 15:19:00 31.17 kg/m2 [facility] Oxygen saturation in Arterial blood by Pulse oximetry 2023-02-14 15:19:00 99 /min [facility] Systolic blood pressure 2023-02-02 18:42:00 119 mm[Hg] [facility] Diastolic blood pressure 2023-02-02 18:42:00 80 mm[Hg] [facility] Heart rate 2023-02-02 18:41:00 72 /min [facility] Body temperature 2023-02-02 18:41:00 37.06 Cee [facility] Body height 2023-02-02 18:41:00 157.5 cm [facility] Body weight 2023-02-02 18:41:00 74.481 kg [facility] BMI 2023-02-02 18:41:00 30.03 kg/m2 [facility] Systolic blood pressure 2023-01-10 20:37:00 120 mm[Hg] [facility] Diastolic blood pressure 2023-01-10 20:37:00 75 mm[Hg] [facility] Heart rate 2023-01-10 20:37:00 90 /min [facility] Body temperature 2023-01-10 20:37:00 36.44 Cee [facility] Respiratory rate 2023-01-10 20:37:00 18 /min [facility] Body height 2023-01-10 20:37:00 157.5 cm [facility] Body weight 2023-01-10 20:37:00 71.85 kg [facility] BMI 2023-01-10 20:37:00 28.97 kg/m2 [facility] Systolic blood pressure 2022-12-20 19:27:00 114 mm[Hg] [facility] Diastolic blood pressure 2022-12-20 19:27:00 71 mm[Hg] [facility] Heart rate 2022-12-20 19:27:00 108 /min [facility] Body temperature 2022-12-20 19:27:00 36.78 Cee [facility] Respiratory rate 2022-12-20 19:27:00 18 /min [facility] Body height 2022-12-20 19:27:00 157.5 cm [facility] Body weight 2022-12-20 19:27:[address] [facility] BMI 2022-12-20 19:27:00 27.25 kg/m2 [facility] Systolic blood pressure 2022-11-22 17:19:00 107 mm[Hg] [facility] Diastolic blood pressure 2022-11-22 17:19:00 70 mm[Hg] [facility] Heart rate 2022-11-22 17:19:00 106 /min [facility] Body temperature 2022-11-22 17:19:00 36.78 Cee [facility] Respiratory rate 2022-11-22 17:19:00 17 /min [facility] Body height 2022-11-22 17:19:00 157.5 cm [facility] Body weight 2022-11-22 17:19:00 65.681 kg [facility] BMI 2022-11-22 17:19:00 26.48 kg/m2 [facility] Systolic blood pressure 2022-10-24 19:30:00 112 mm[Hg] [facility] Diastolic blood pressure 2022-10-24 19:30:00 70 mm[Hg] [facility] Heart rate 2022-10-24 19:30:00 99 /min [facility] Body temperature 2022-10-24 19:30:00 36.72 Cee [facility] Body height 2022-10-24 19:30:00 157.5 [facility] 2022-10-24 19:30:00 62.869 kg [facility] BMI 2022-10-24 19:30:00 25.35 kg/m2 [facility] Systolic blood pressure 2022-09-27 14:53:00 108 mm[Hg] [facility] Diastolic blood pressure 2022-09-27 14:53:00 69 mm[Hg] [facility] Heart rate 2022-09-27 14:53:00 94 /min [facility] Body temperature 2022-09-27 14:53:00 36.72 Cee [facility] Respiratory rate 2022-09-27 14:53:00 16 /min [facility] Body height 2022-09-27 14:53:00 157.5 cm [facility] Body weight 2022-09-27 14:53:00 60.328 kg [facility] BMI 2022-09-27 14:53:00 24.33 kg/m2 [facility] Systolic blood pressure 2022-09-22 21:50:00 120 mm[Hg] [facility] Diastolic blood pressure 2022-09-22 21:50:00 74 mm[Hg] [facility] Heart rate 2022-09-22 21:50:00 97 /min [facility] Body temperature 2022-09-22 21:50:00 37.17 Cee [facility] Respiratory rate 2022-09-22 21:50:00 18 /min [facility] Body height 2022-09-22 21:50:00 157.5 cm [facility] Body weight 2022-09-22 21:50:00 59.421 kg [facility] BMI 2022-09-22 21:50:00 23.96 kg/m2 [facility] Systolic blood pressure 2022-09-17 13:56:00 114 mm[Hg] [facility] Diastolic blood pressure 2022-09-17 13:56:00 72 mm[Hg] [facility] Heart rate 2022-09-17 13:56:00 99 /min [facility] Body temperature 2022-09-17 13:56:00 36.28 Cee [facility] Respiratory rate 2022-09-17 13:56:00 18 /min [facility] Oxygen saturation in Arterial blood by Pulse oximetry 2022-09-17 13:56:00 99 /min [facility] Systolic blood pressure 2022-09-16 19:31:00 100 mm[Hg] [facility] Diastolic blood pressure 2022-09-16 19:31:00 53 mm[Hg] [facility] Heart rate 2022-09-16 19:31:00 88 /min [facility] Body temperature 2022-09-16 19:31:00 37.06 [facility] Respiratory rate 2022-09-16 19:31:00 18 /min [facility] Oxygen saturation in Arterial blood by Pulse oximetry 2022-09-16 19:31:00 98 /min [facility] Systolic blood pressure 2022-09-16 16:26:00 128 mm[Hg] [facility] Diastolic blood pressure 2022-09-16 16:26:00 75 mm[Hg] [facility] Heart rate 2022-09-16 16:26:00 112 /min [facility] Body temperature 2022-09-16 16:26:00 37.22 [facility] Respiratory rate 2022-09-16 16:26:00 16 /min [facility] Body height 2022-09-16 16:26:[address] [facility] Body weight 2022-09-16 16:26:[address] [facility] BMI 2022-09-16 16:26:00 22.86 kg/m2 [facility] Oxygen saturation in Arterial blood by Pulse oximetry 2022-09-16 16:26:00 100 /min [facility] Systolic blood pressure 2022-09-16 07:35:00 122 mm[Hg] [facility] Diastolic blood pressure 2022-09-16 07:35:00 83 mm[Hg] [facility] Heart rate 2022-09-16 07:35:00 111 /min [facility] Respiratory rate 2022-09-16 07:35:00 20 /min [facility] Oxygen saturation in Arterial blood by Pulse oximetry 2022-09-16 07:35:00 99 /min [facility] Body temperature 2022-09-16 06:15:00 37.22 Cee [facility] Body height 2022-09-16 06:15:00 157.5 cm [facility] Body weight 2022-09-16 06:15:[address] [facility] BMI 2022-09-16 06:15:00 22.86 kg/m2 [facility] Systolic blood pressure 2022-08-26 23:06:00 113 mm[Hg] [facility] Diastolic blood pressure 2022-08-26 23:06:00 73 mm[Hg] [facility] Heart rate 2022-08-26 23:06:00 92 /min [facility] Body temperature 2022-08-26 23:06:00 37.06 Cee [facility] Body height 2022-08-26 23:06:[address] [facility] Body weight 2022-08-26 23:06:[address] [facility] BMI 2022-08-26 23:06:00 23.45 kg/m2 [facility] Systolic blood pressure 2022-08-25 21:12:00 96 mm[Hg] [facility] Diastolic blood pressure 2022-08-25 21:12:00 62 mm[Hg] [facility] Heart rate 2022-08-25 21:11:00 117 /min [facility] Body temperature 2022-08-25 21:11:00 36.67 Cee [facility] Body height 2022-08-25 21:11:00 157.5 cm [facility] Body weight 2022-08-25 21:11:[address] [facility] BMI 2022-08-25 21:11:00 23.34 kg/m2 [facility] Systolic blood pressure 2022-08-18 06:27:00 127 mm[Hg] [facility] Diastolic blood pressure 2022-08-18 06:27:00 68 mm[Hg] [facility] Heart rate 2022-08-18 06:27:00 90 /min [facility] Body temperature 2022-08-18 06:27:00 37.17 Cee [facility] Respiratory rate 2022-08-18 06:27:00 15 /min [facility] Body height 2022-08-18 06:27:[address] [facility] Body weight 2022-08-18 06:27:[address] [facility] BMI 2022-08-18 06:27:00 24.69 kg/m2 [facility] Oxygen saturation in Arterial blood by Pulse oximetry 2022-08-18 06:27:00 100 /min [facility] Systolic blood pressure 2022-01-18 15:32:00 128 mm[Hg] [facility] Diastolic blood pressure 2022-01-18 15:32:00 84 mm[Hg] [facility] Heart rate 2022-01-18 15:32:00 80 /min [facility] Body temperature 2022-01-18 15:32:00 37.06 Cee [facility] Body height 2022-01-18 15:32:[address] [facility] Body weight 2022-01-18 15:32:[address] [facility] BMI 2022-01-18 15:32:00 27.47 kg/m2 [facility] Procedures Procedure Date / Time Performed Performing Clinician Source POCT MOLECULAR FLU 2023-05-22 21:38:00 Unknown, Attend ing [facility] POCT MOLECULAR STREP 2023-05-22 21:35:00 Unknown, Atte nding [facility] POCT SARS-COV-2 ANTIGEN (BINAX NOW) 2023-05-22 21:30:00 Wang Kong [facility] SGOT (ASPARTATE AMINO TRANSFER) 2023-02-27 18:45:00 Carol Kwame Corby [facility] CREATININE 2023-02-27 18:45:00 Carol Kwame Corby [facility] ALANINE AMINO TRANSFERASE(SGPT 2023-02-27 18:45:00 Carol Kwame Tavarez [facility] LACTATE DEHYDROGENASE 2023-02-27 18:45:00 Carol Kwame Lux [facility] URIC ACID 2023-02-27 18:45:00 Medina Kwame Tavarez [facility] CBC WITH DIFF 2023-02-27 18:45:00 Carol Kwame Tavarez [facility] CBC WITH DIFF 2023-02-27 09:14:00 Carol Kwame Tavarez [facility] CBC WITH DIFF 2023-02-27 01:31:00 Kwame Medina [facility] HEPATITIS B SURFACE ANTIGEN 2023-02-27 01:31:00 Carol Kwame [facility] HB ABO GROUPING 2023-02-27 01:31:[address] [facility] RHO (D) IMMUNE GLOBULIN 2023-02-27 01:31:00 Kwame Medina [facility] ADC OR KEARA ONLY - RPR 2023-02-27 01:31:00 Arcenio Medina [facility] HIV 1/2 AG-AB WITH REFLEX 2023-02-27 01:31:00 Arcenio Medina [facility] NOTICE OF PRIVACY PRACTICES 2023-02-27 00:19:59 Doctor Unassigned, Philippi [facility] ASSIGNMENT OF BENEFITS 2023-02-27 00:18:24 Docto r Unassigned, Philippi [facility] POCT URINALYSIS W/O SPECIFIC GRAVITY 2023-02-21 00:00:00 Kwame Medina [facility] POCT URINALYSIS W/O SPECIFIC GRAVITY 2023-02-14 00:00:00 Kwame Medina [facility] >14 WEEKS US LIMITED 2023-02-02 19:06:38 Kwame Medina [facility] DSU PRE-OP 2023-02-02 05:01:00 Doctor Unass igned, Philippi [facility] POCT URINALYSIS W/O SPECIFIC GRAVITY 2023-02-02 00:00:00 Kwame Medina [facility] POCT URINALYSIS W/O SPECIFIC GRAVITY 2023-01-10 20:43:00 Emily Kolby [facility] TDAP VACCINE, >11 YRS, IM 2023-01-10 20:38:38 Emily [facility] POCT URINALYSIS W/O SPECIFIC GRAVITY 2022-12-20 19:28:00 Kwame Medina [facility] PATIENT FINANCIAL POLICY 2022-12-19 16:53:30 Doctor Unassigned, Philippi [facility] POCT URINALYSIS W/O SPECIFIC GRAVITY 2022-11-22 17:27:00 Emily Kolby [facility] POCT URINALYSIS W/O SPECIFIC GRAVITY 2022-10-24 00:00:00 Kwame Medina [facility] POCT URINALYSIS W/O SPECIFIC GRAVITY 2022-09-27 15:04:00 Emily [facility] POCT URINALYSIS W/O SPECIFIC GRAVITY 2022-09-22 00:00:00 Emily Kolby [facility] MEDICATION CORRESPONDENCE 2022-09-20 06:01:00 Do ctor Unassigned, Philippi [facility] TISSUE CULTURE(AEROBIC/ANAEROBIC ) 2022-09-16 23:46:00 Torrey Franklin [facility] FUNGUS (ROUTINE) CULTURE 2022-09-16 23:46:00 Gabriela Franklin [facility] TISSUE CULTURE(AEROBIC/ANAEROBIC ) 2022-09-16 23:46:00 Torrey Franklin [facility] OPEN GLOBE REPAIR 2022-09-16 22:33:00 [facility]OL[facility] (NA, K, CL, CO2, GLUCOSE, BUN, CREATININE, CA) 2022-09-16 21:31:00 Tavo Tello [facility] CBC WITH DIFF 2022-09-16 21:31:00 Tavo Tello [facility] BASIC METABOLIC PANEL (NA, K, CL, CO2, GLUCOSE, BUN, CREATININE, CA) 2022-09-16 21:31:00 Tavo Tello [facility] CBC WITH DIFF 2022-09-16 21:31:00 Tavo Tello [facility] CONSENT/REFUSAL FOR DIAGNOSIS AND TREATMENT 2022-09-16 16:19:37 Doctor Unassigned, Philippi [facility] SCANNED LAB RESULTS 2022-08-26 06:01:00 Doctor U nassigned, Philippi [facility] US OB TRANSVAGINAL 2022-08-25 21:55:45 Kwame Medina [facility] FLU VACC (), 6 MO-64 YRS, .5ML, IM, QUAD (FLUCELVAX) 2022-08-25 21:15:42 Kwame Medina [facility] POCT TEST 2022-08-25 00:00:00 Kwame Medina [facility] POCT URINALYSIS W/O SPECIFIC GRAVITY 2022-08-25 00:00:00 Kwame Medina [facility] URINALYSIS 2022-08-18 06:36:[address] [facility] POCT TEST 2022-08-18 06:34:00 Inocencio Anthony [facility] NOTICE OF PRIVACY PRACTICES 2022-08-18 06:22:24 Doctor Unassigned, Philippi [facility] CONSENT/REFUSAL FOR DIAGNOSIS AND TREATMENT 2022-08-18 06:21:41 Doctor Unassigned, Philippi [facility] GC & CHLAMYDIA AMPLIFIED ASSAY 2022-01-18 15:46:00 Kwame Medina [facility] GALV ONLY - VAGINAL PATHOGENS BY NUCLEIC ACID TESTING 2022-01-18 15:46:00 Kwame Medina [facility] Encounters Start Date/Time End Date/Time Encounter Type Admission Type Attending [facility] Care Facility Care Department Encounter ID Source 2021-08-19 14:20:26 Outpatient P KWAME MEDINA [facility] [id number] [facility] 2021-08-15 20:42:27 Emergency [facility] [id number] [facility] 2021-08-13 15:04:10 Outpatient P [facility] [id number] [facility] 2021-01-07 13:57:44 Inpatient [facility] [id number] 2023-08-23 13:30:00 2023-08-23 13:30:00 Outpatient R KWAME MEDINA [facility] [id number] [facility] 2023-05-22 16:20:00 2023-05-22 16:54:17 Outpatient R WANG KONG [facility] [id number] [facility] 2023-05-22 16:20:00 2023-05-22 16:54:17 Urgent Care [place] Unknown, Attending [facility] 1.2.840.114 350.1.13.10 4.2.7.2.686 [id number] [facility] 2023-05-22 00:00:00 2023-05-22 00:00:00 Letter (Out) Wang Kong [facility] 1.2.840.114 350.1.13.10 4.2.7.2.686 [id number] [facility] 2023-05-15 14:15:00 2023-05-15 14:15:00 Outpatient R KWAME MEDINA [facility] [id number] [facility] 2023-05-05 00:00:00 2023-05-05 00:00:00 Case Management Kwame Medina [facility] 1.2.840.114 350.1.13.10 4.2.7.2.686 [id number] [facility] 2023-05-05 00:00:00 2023-05-05 00:00:00 Telephone Kwame Medina [facility] 1.2.840.114 350.1.13.10 4.2.7.2.686 [id number] [facility] 2023-04-13 00:00:00 2023-04-13 00:00:00 Patient Secure Msg Doctor Unassigned, Philippi [facility] 1.2.840.114 350.1.13.10 4.2.7.2.686 [id number] [facility] 2023-04-11 13:30:00 2023-04-11 13:30:00 Office Visit Kwame Medina [facility] 1.2.840.114 350.1.13.10 4.2.7.2.686 [id number] [facility] 2023-04-11 13:30:00 2023-04-11 09:57:11 Outpatient R KWAME MEDINA [facility] [id number] [facility] 2023-03-03 10:00:00 2023-03-03 10:19:49 Outpatient R KWAME MEDINA [facility] [id number] [facility] 2023-03-03 10:00:00 2023-03-03 10:19:49 Nurse Visit Nurse, [facility] Kwame Medina [facility] 1.2.840.114 350.1.13.10 4.2.7.2.686 [id number] [facility] 2023-02-26 19:23:00 2023-03-01 11:45:00 Inpatient X KWAME MEDINA [facility] [id number] [facility] 2023-02-26 19:23:00 2023-03-01 11:45:00 Hospital Encounter Kwame Medina [facility] 1.2.840.114 350.1.13.10 4.2.7.2.686 [id number] [facility] 2023-02-28 13:15:00 2023-02-28 13:15:00 Outpatient R KWAME MEDINA [facility] [id number] [facility] 2023-02-26 00:00:00 2023-02-26 00:00:00 Orders Only Doctor Unassigned, Philippi [facility] 1.2.840.114 350.1.13.10 4.2.7.2.686 [id number] [facility] 2023-02-21 14:15:00 2023-02-21 14:37:40 Outpatient R GONZALO MEDINAEN [facility] [id number] [facility] 2023-02-21 14:15:00 2023-02-21 14:37:40 Routine Visit Kwame Medina [facility] 1.2.840.114 350.1.13.10 4.2.7.2.686 [id number] [facility] 2023-02-15 00:00:00 2023-02-15 00:00:00 [facility] 1.2.840.114 350.1.13.10 4.2.7.2.686 [id number] [facility] 2023-02-14 10:15:00 2023-02-14 10:30:00 Routine Visit Kwame Medina [facility] 1.2.840.114 350.1.13.10 4.2.7.2.686 [id number] [facility] 2023-02-14 10:15:00 2023-02-14 10:15:00 Outpatient R GONZALO MEDINAEN [facility] [id number] [facility] 2023-02-03 00:00:00 2023-02-03 00:00:00 Case Management Kwame Medina [facility] 1.2.840.114 350.1.13.10 4.2.7.2.686 [id number] [facility] 2023-02-02 15:15:00 2023-02-02 15:30:00 Transmitter Engineer Visit 2, Adc Lab Kwame Medina [facility] BUILDING 1.2.840.114 350.1.13.10 4.2.7.2.686 [id number] [facility] 2023-02-02 15:15:00 2023-02-02 15:15:00 Outpatient R KWAME MEDINA [facility] [id number] [facility] 2023-02-02 13:15:00 2023-02-02 14:09:22 Routine Visit Kwame Medina [facility] 1.2.840.114 350.1.13.10 4.2.7.2.686 [id number] [facility] 2023-02-02 00:00:00 2023-02-02 00:00:00 Orders Only Doctor Unassigned, Philippi [facility] 1.2.840.114 350.1.13.10 4.2.7.2.686 [id number] [facility] 2023-01-10 15:30:00 2023-01-10 15:45:00 Routine Visit Emily Kolby [facility] 1.2.840.114 350.1.13.10 4.2.7.2.686 [id number] [facility] 2023-01-10 15:30:00 2023-01-10 15:30:00 [facility] [id number] 2023-01-03 14:30:00 2023-01-03 14:30:00 Outpatient R KOLBY DIAZ [facility] [id number] [facility] 2022-12-21 09:00:00 2022-12-21 09:15:00 Transmitter Engineer Visit 2, Adc Lab Kwame Medina [facility] 1.840.114 350.1.13.10 4.2.7.2.686 [id number] [facility] 2022-12-21 09:00:00 2022-12-21 09:00:00 Outpatient R CAROL KWAME [facility] [id number] [facility] 2022-12-20 13:00:00 2022-12-20 13:41:35 Outpatient R KWAME MEDINA [facility] [id number] [facility] 2022-12-20 13:00:00 2022-12-20 13:41:35 Routine Visit Kwame Medina [facility] 1..114 350.1.13.10 4.2.7.2.686 [id number] [facility] 2022-12-19 11:00:00 2022-12-19 11:30:50 Transmitter Engineer Visit Ultrasound, Hitesh-Yovanny Stephenson [facility] REWIND OPERATOR [facility] 1..114 350.1.13.10 4.2.7.2.686 [id number] [facility] 2022-12-19 11:00:00 2022-12-19 11:00:00 Outpatient P YOVANNY HALL [facility] [id number] [facility] 2022-12-19 00:00:00 2022-12-19 00:00:00 Orders Only Doctor Unassigned, Philippi [facility] 1.0.114 350.1.13.10 4.2.7.2.686 [id number] [facility] 2022-12-13 09:15:00 2022-12-13 09:15:00 Outpatient R [facility] [id number] [facility] 2022-11-30 14:15:00 2022-11-30 14:15:00 Outpatient P [facility] [id number] [facility] 2022-11-23 00:00:00 2022-11-23 00:00:00 [facility] 1.2840.114 350.1.13.10 4.2.7.2.686 [id number] [facility] 2022-11-22 11:30:00 2022-11-22 12:00:56 Outpatient R EMILY [facility] [id number] [facility] 2022-11-22 11:30:00 2022-11-22 12:00:56 Routine Visit Kolby Diaz [facility] 1.2.840.114 350.1.13.10 4.2.7.2.686 [id number] [facility] 2022-11-03 00:00:00 2022-11-03 00:00:00 Patient Secure Msg Doctor Unassigned, Philippi [facility] 1.840.114 350.1.13.10 4.2.7.2.686 [id number] [facility] 2022-10-24 13:30:00 2022-10-24 14:01:25 Outpatient R KWAME MEDINA [facility] [id number] [facility] 2022-10-24 13:30:00 2022-10-24 14:01:25 Routine Visit Kwame Medina [facility] 1.2.840.114 350.1.13.10 4.2.7.2.686 [id number] [facility] 2022-10-20 15:45:00 2022-10-20 15:45:00 Outpatient R KWAME MEDINA [facility] [id number] [facility] 2022-10-18 15:00:00 2022-10-18 16:00:00 Transmitter Engineer Visit Ultrasound, Adc [facility] Magnus Martinez [facility] 1..840.114 350.1.13.10 4.2.7.2.686 [id number] [facility] 2022-10-18 15:00:00 2022-10-18 15:00:00 Outpatient P MAGNUS MARTINEZ [facility] [id number] [facility] 2022-10-03 00:00:00 2022-10-03 00:00:00 Case Management Kolby Diaz [facility] 1..840.114 350.1.13.10 4.2.7.2.686 [id number] [facility] 2022-09-29 13:30:00 2022-09-29 13:30:00 Outpatient R EMILY [facility] [id number] [facility] 2022-09-27 09:00:00 2022-09-27 09:16:54 [facility] [id number] [facility] 2022-09-27 09:00:00 2022-09-27 09:16:54 Routine Visit Kolby Diaz [facility] 1..840.114 350.1.13.10 4.2.7.2.686 [id number] [facility] 2022-09-26 00:00:00 2022-09-26 00:00:00 Telephone Kwame Medina [facility] 1..840.114 350.1.13.10 4.2.7.2.686 [id number] [facility] 2022-09-22 16:15:00 2022-09-22 16:30:00 Transmitter Engineer Visit Pob, Adc Lab Main Emily [facility] BUILDING 1.2.840.114 350.1.13.10 4.2.7.2.686 [id number] [facility] 2022-09-22 15:30:00 2022-09-22 16:16:02 Outpatient R EMILY [facility] [id number] [facility] 2022-09-22 15:30:00 2022-09-22 16:16:02 Routine Visit Emily [facility] 1.2840.114 350.1.13.10 4.2.7.2.686 [id number] [facility] 2022-09-20 00:00:00 2022-09-20 00:00:00 Orders Only Doctor Unassigned, Philippi [facility] 1.2.840.114 350.1.13.10 4.2.7.2.686 [id number] [facility] 2022-09-20 00:00:00 2022-09-20 00:00:00 Telephone Torrey Franklin [facility] [place] 1.2840.114 350.1.13.10 4.2.7.2.686 [id number] [facility] 2022-09-16 13:29:00 2022-09-17 12:00:00 Emergency Gabbi Turcios [facility] 1.2.840.114 350.1.13.10 4.2.7.2.686 [id number] [facility] 2022-09-17 00:00:00 2022-09-17 00:00:00 Telephone Adam Lopes [facility] 1.2840.114 350.1.13.10 4.2.7.2.686 [id number] [facility] 2022-09-16 15:58:00 2022-09-16 17:45:00 Surgery [facility] 1.2840.114 350.1.13.10 4.2.7.2.686 [id number] [facility] 2022-09-16 10:26:00 2022-09-16 12:01:00 Emergency X FLAQUITA COELHO [facility] ERT [id number] [facility] 2022-09-16 10:26:00 2022-09-16 12:01:00 Emergency X FLAQUITA COELHO [facility] ERT [id number] [facility] 2022-09-16 10:26:00 2022-09-16 12:01:00 Emergency Flaquita Coelho [facility] 1.2840.114 350.1.13.10 4.2.7.2.686 [id number] [facility] 2022-09-16 00:21:00 2022-09-16 01:46:00 Emergency X JEANNIE PENALOZAARIANAALFREDO [facility] ERT [id number] [facility] 2022-09-16 00:21:00 2022-09-16 01:46:00 Emergency Duke Penaloza [facility] 1.2840.114 350.1.13.10 4.2.7.2.686 [id number] [facility] 2022-09-07 00:00:00 2022-09-07 00:00:[address] [facility] 1.2840.114 350.1.13.10 4.2.7.2.686 [id number] [facility] 2022-08-29 14:30:00 2022-08-29 14:30:00 Outpatient R KWAME MEDINA [facility] [id number] [facility] 2022-08-26 15:30:00 2022-08-26 17:08:12 Nurse Visit Nurse, [facility] Kwame Medina [facility] BUILDING 1.2.840.114 350.1.13.10 4.2.7.2.686 [id number] [facility] 2022-08-26 15:30:00 2022-08-26 15:30:00 Outpatient R CAROL [facility] [id number] [facility] 2022-08-26 09:45:00 2022-08-26 10:11:24 Transmitter Engineer Visit 2, [facility] 1.2.840.114 350.1.13.10 4.2.7.2.686 [id number] [facility] 2022-08-26 00:00:00 2022-08-26 00:00:00 Orders Only Doctor Unassigned, Philippi [facility] 1.284.114 350.1.13.10 4.2.7.2.686 [id number] [facility] 2022-08-25 14:30:00 2022-08-25 15:48:45 Outpatient R KWAME MEDINA [facility] [id number] [facility] 2022-08-25 14:30:00 2022-08-25 15:48:45 Initial Visit Kwame Medina [facility] BUILDING 1.2.840.114 350.1.13.10 4.2.7.2.686 [id number] [facility] 2022-08-18 01:31:00 2022-08-18 02:23:00 Emergency X INOCENCIO ANTHONY [facility] ERT [id number] [facility] 2022-08-18 01:31:00 2022-08-18 02:23:00 Emergency Inocencio Anthony [facility] 1..114 350.1.13.10 4.2.7.2.686 [id number] [facility] 2022-03-29 16:00:00 2022-03-29 16:00:00 Outpatient TOM GALVEZ CHERYAL [facility] [id number] [facility] 2022-03-29 10:00:00 2022-03-29 10:00:00 Outpatient KOLBY MAXWELL [facility] [id number] [facility] 2022-02-16 13:00:00 2022-02-16 13:00:00 Outpatient KWAME PARRISH [facility] [id number] [facility] 2022-02-16 13:00:00 2022-02-16 13:00:00 Outpatient KWAME PARRISH [facility] [id number] [facility] 2022-01-21 00:00:00 2022-01-21 00:00:00 Patient Secure Msg Doctor Unassigned, Philippi [facility] 1.114 350.1.13.10 4.2.7.2.686 [id number] [facility] 2022-01-20 00:00:00 2022-01-20 00:00:00 Case Management Kwame Medina [facility] 1..114 350.1.13.10 4.2.7.2.686 [id number] [facility] 2022-01-19 00:00:00 2022-01-19 00:00:00 Case Management Tom Perez [facility] 1.114 350.1.13.10 4.2.7.2.686 [id number] [facility] 2022-01-18 11:45:00 2022-01-18 12:00:00 Transmitter Engineer Visit 2, Adc Lab Kwame Medina [facility] 1.2.840.114 350.1.13.10 4.2.7.2.686 [id number] [facility] 2022-01-18 11:45:00 2022-01-18 11:45:00 Outpatient R [facility]ON[facility] [id number] [facility] 2022-01-18 10:30:00 2022-01-18 10:49:14 Office Visit Kwame Medina [facility] 1..840.114 350.1.13.10 4.2.7.2.686 [id number] [facility] 2022-01-18 10:30:00 2022-01-18 10:49:14 Outpatient R KWAME MEDINA [facility] [id number] [facility] 2022-01-18 10:30:00 2022-01-18 10:49:14 Outpatient R KWAME MEDINA [facility] [id number] [facility] 2021-12-17 00:00:00 2021-12-17 00:00:00 Telephone Kolby Diaz [facility] 1..840.114 350.1.13.10 4.2.7.2.686 [id number] 134 [id number] [facility] 2021-12-01 00:00:00 2021-12-01 00:00:00 Orders Only Doctor Unassigned, Philippi [facility] 1.840.114 350.1.13.10 4.2.7.2.686 [id number] [facility] 2021-10-25 10:00:00 2021-10-25 10:00:00 Outpatient R [facility] [id number] [facility] 2021-10-01 04:14:00 2021-10-01 04:15:00 Emergency X SHAI KNAPP [facility] ERT [id number] [facility] 2021-10-01 04:14:00 2021-10-01 04:15:00 Emergency Shai Knapp [facility] 1.2.840.114 350.1.13.10 4.2.7.2.686 [id number] [facility] 2021-09-29 00:00:00 2021-09-29 00:00:00 Telephone Emily [facility] PROFESSIO NAL BUILDING 1.2.840.114 350.1.13.10 4.2.7.2.686 [id number] 134 [id number] [facility] 2021-09-27 15:31:06 2021-09-27 16:29:03 Routine Visit Emily Kolby [facility] PROFESSIO [facility] BUILDING 1.2.840.114 350.1.13.10 4.2.7.2.686 [id number] 134 [id number] [facility] 2021-09-27 15:30:00 2021-09-27 16:29:03 Outpatient R EMILY [facility] [id number] [facility] 2021-09-27 15:30:00 2021-09-27 15:30:00 Outpatient R EMILY [facility] [id number] [facility] 2021-08-20 10:09:00 2021-08-21 18:30:00 Inpatient X KWAME MEDINA [facility] ERT [id number] [facility] 2021-08-20 10:09:00 2021-08-21 18:30:00 Hospital Encounter Ashlyn Strickland Vien Cam [facility] 1.2.840.114 350.1.13.10 4.2.7.2.686 [id number] [facility] 2021-08-20 14:30:00 2021-08-20 14:30:00 Outpatient R [facility] [id number] [facility] 2021-08-19 13:15:00 2021-08-19 14:07:12 Outpatient R KWAME MEDINA [facility] [id number] [facility] 2021-08-19 13:13:34 2021-08-19 14:07:12 Routine Visit Kwame Medina [facility] BUILDING 1.2.840.114 350.1.13.10 4.2.7.2.686 [id number] 134 [id number] [facility] 2021-08-12 13:00:00 2021-08-12 13:53:42 Outpatient R KWAME MEDINA [facility] [id number] [facility] 2021-08-12 12:46:01 2021-08-12 13:01:01 Routine Visit Kwame Medina [facility] NAL BUILDING 1.2.840.114 350.1.13.10 4.2.7.2.686 [id number] 134 [id number] [facility] 2021-08-06 11:32:36 2021-08-06 12:02:36 Transmitter Engineer Visit Ultrasound, Adc [facility] 1.2.840.114 350.1.13.10 4.2.7.2.686 [id number] 134 [id number] [facility] 2021-08-06 11:30:00 2021-08-06 11:30:00 Outpatient P [facility] [id number] [facility] 2021-08-05 12:56:46 2021-08-05 13:45:01 [facility]ine [facility] 1.2840.114 350.1.13.10 4.2.7.2.686 [id number] 134 [id number] [facility] 2021-08-05 13:00:00 2021-08-05 13:00:00 Outpatient R KWAME MEDINA [facility] [id number] [facility] 2021-08-05 00:00:00 2021-08-05 00:00:00 Orders Only Doctor Unassigned, Philippi [facility] 1.2840.114 350.1.13.10 4.2.7.2.686 [id number] [facility] 2021-07-23 00:00:00 2021-07-23 00:00:00 Case Management [facility] 1.2.840.114 350.1.13.10 4.2.7.2.686 [id number] 134 [id number] [facility] 2021-07-22 16:14:29 2021-07-22 16:29:29 Routine Visit Emily Kolby [facility] nal Building 1.2.840.114 350.1.13.10 4.2.7.2.686 [id number] 134 [id number] [facility] 2021-07-22 16:15:00 2021-07-22 16:15:00 Outpatient R KOLBY DIAZ [facility] [id number] [facility] 2021-07-08 16:15:00 2021-07-08 16:15:00 Outpatient R KWAME MEDINA [facility] [id number] [facility] 2021-07-08 14:33:41 2021-07-08 15:28:40 Routine Visit Kwame Medina [facility] Professio nal Building 1.2.840.114 350.1.13.10 4.2.7.2.686 [id number] 134 [id number] [facility] 2021-07-08 00:00:00 2021-07-08 00:00:00 Telephone Kolby Diaz [facility] 1.2.840.114 350.1.13.10 4.2.7.2.686 [id number] 134 [id number] [facility] 2021-06-24 13:05:05 2021-06-24 14:22:16 Routine Visit Kwame Medina [facility] 1.2.840.114 350.1.13.10 4.2.7.2.686 [id number] 134 [id number] [facility] 2021-06-24 13:00:00 2021-06-24 13:00:00 [facility] [id number] [facility] 2021-06-23 15:45:00 2021-06-23 15:45:00 Outpatient [facility] [id number] [facility] 2021-06-18 00:00:00 2021-06-18 00:00:00 Patient Secure Msg Doctor Unassigned, Philippi [facility] 1.2.840.114 350.1.13.10 4.2.7.2.686 [id number] 134 [id number] [facility] 2021-06-11 00:00:00 2021-06-11 00:00:00 Patient Secure Msg Doctor Unassigned, Philippi [facility] 1.2.840.114 350.1.13.10 4.2.7.2.686 [id number] 134 [id number] [facility] 2021-06-10 10:30:21 2021-06-10 10:45:21 Transmitter Engineer Visit 2, Adc Lab Kwame Medina [facility] 1.2.840.114 350.1.13.10 4.2.7.2.686 [id number] [facility] 2021-06-10 10:30:00 2021-06-10 10:30:00 Outpatient R [facility] [id number] [facility] 2021-06-10 09:30:00 2021-06-10 09:30:00 Outpatient R [facility] [id number] [facility] 2021-06-09 15:31:53 2021-06-09 16:40:46 Routine Visit Kwame Medina [facility] 1.2.840.114 350.1.13.10 4.2.7.2.686 [id number] 134 [id number] [facility] 2021-06-09 15:30:00 2021-06-09 15:30:00 Outpatient R KWAME MEDINA [facility] [id number] [facility] 2021-05-25 08:00:00 2021-05-25 08:00:00 Outpatient R [facility] [id number] [facility] 2021-05-18 00:00:00 2021-05-18 00:00:00 Patient Secure Msg Doctor Unassigned, Philippi [facility] 1.2.840.114 350.1.13.10 4.2.7.2.686 [id number] 134 [id number] [facility] 2021-05-13 00:00:00 2021-05-13 00:00:00 Patient Secure Msg Doctor Unassigned, Philippi [facility] 1.2.840.114 350.1.13.10 4.2.7.2.686 [id number] [facility] 2021-05-12 16:08:28 2021-05-12 17:02:23 Routine Visit Kwame Medina [facility] 1.2.840.114 350.1.13.10 4.2.7.2.686 [id number] 134 [id number] [facility] 2021-05-12 16:00:00 2021-05-12 16:00:00 Outpatient R KWAME MEDINA [facility] [id number] [facility] 2021-04-28 16:00:00 2021-04-28 16:00:00 Outpatient R KWAME MEDINA [facility] [id number] [facility] 2021-04-19 13:15:00 2021-04-19 13:15:00 Outpatient R KWAME MEDINA [facility] [id number] [facility] 2021-04-16 14:58:15 2021-04-16 15:58:15 Transmitter Engineer Visit Ultrasound, Adc Britany Ponce [facility] 1.2.840.114 350.1.13.10 4.2.7.2.686 [id number] 134 [id number] [facility] 2021-04-16 14:30:00 2021-04-16 14:30:00 Outpatient R KWAME MEDINA [facility] [id number] [facility] 2021-04-13 00:00:00 2021-04-13 00:00:00 Patient Secure Msg Doctor Unassigned, Philippi [facility] BUILDING 1.2.840.114 350.1.13.10 4.2.7.2.686 [id number] 134 [id number] [facility] 2021-03-31 15:33:00 2021-03-31 16:44:44 Routine [facility] 1.2.840.114 350.1.13.10 4.2.7.2.686 [id number] 134 [id number] [facility] 2021-03-31 15:30:00 2021-03-31 15:30:00 Outpatient R KWAME MEDINA [facility] [id number] [facility] 2021-03-06 20:00:00 2021-03-06 21:49:00 Emergency Jose Mcclain [facility] 1.2.840.114 350.1.13.10 4.2.7.2.686 [id number] [facility] 2021-03-05 00:00:00 2021-03-05 00:00:00 Patient Secure Msg Doctor Unassigned, Philippi [facility] 1.2.840.114 350.1.13.10 4.2.7.2.686 [id number] [facility] 2021-03-04 11:40:40 2021-03-04 11:55:40 Transmitter Engineer Visit 2, Adc Lab Kwame Medina [facility] 1.2.840.114 350.1.13.10 4.2.7.2.686 [id number] [facility] 2021-03-04 11:30:00 2021-03-04 11:30:00 Outpatient R [facility] [id number] [facility] 2021-03-04 00:00:00 2021-03-04 00:00:00 Case Management FrankyKolby piña [facility] 1.2840.114 350.1.13.10 4.2.7.2.686 [id number] 134 [id number] [facility] 2021-03-04 00:00:00 2021-03-04 00:00:00 Telephone Kwame Medina [facility] Building 1.2840.114 350.1.13.10 4.2.7.2.686 [id number] 134 [id number] [facility] 2021-03-03 14:38:47 2021-03-03 15:24:08 Routine Visit EmilyKolby [facility] Building 1.2840.114 350.1.13.10 4.2.7.2.686 [id number] 134 [id number] [facility] 2021-03-03 14:45:00 2021-03-03 14:45:00 Outpatient KOLBY MAXWELL [facility] [id number] [facility] 2021-02-23 00:00:00 2021-02-23 00:00:00 Telephone Kwame Medina Corby [facility] Professio nal Building 1.2.840.114 350.1.13.10 4.2.7.2.686 [id number] 134 [id number] [facility] 2021-02-10 00:00:00 2021-02-10 00:00:00 Patient Secure Kolby Diaz [facility] BUILDING 1.2.840.114 350.1.13.10 4.2.7.2.686 [id number] 134 [id number] [facility] 2021-02-04 09:45:00 2021-02-04 09:45:00 Outpatient Yen [facility] [id number] [facility] 2021-02-03 16:17:42 2021-02-03 17:30:37 [facility]ine [facility] 1.2.840.114 350.1.13.10 4.2.7.2.686 [id number] 134 [id number] [facility] 2021-02-03 16:00:00 2021-02-03 16:00:00 Outpatient KOLBY MAXWELL [facility] [id number] [facility] 2021-02-03 00:00:00 2021-02-03 00:00:00 Orders Only Doctor Unassigned, Philippi [facility] 1..840.114 350.1.13.10 4.2.7.2.686 [id number] [facility] 2021-01-27 10:00:00 2021-01-27 10:00:00 Outpatient R KWAME MEDINA [facility] [id number] [facility] 2021-01-25 14:30:00 2021-01-25 14:30:00 Outpatient R KWAME MEDINA [facility] [id number] [facility] 2021-01-18 15:45:00 2021-01-18 15:45:00 Outpatient R KOLBY DIAZ [facility] [id number] [facility] 2020-09-03 10:57:58 2020-09-03 11:27:58 [facility]medici ne [facility] 1.2.840.114 350.1.13.10 4.2.7.2.686 [id number] 134 [id number] 2020-09-03 10:57:58 2020-09-03 11:27:58 Telemedici ne Visit [facility] 1.2.840.114 350.1.13.10 4.2.7.2.686 [id number] 134 [id number] [facility] 2020-09-03 10:45:00 2020-09-03 10:45:00 [facility] [id number] [facility] 2020-09-03 10:15:00 2020-09-03 10:15:00 [facility] [id number] [facility] 2020-09-01 00:00:00 2020-09-01 00:00:00 Telephone [facility] 1.2.840.114 350.1.13.10 4.2.7.2.686 [id number] 134 [id number] 2020-09-01 00:00:00 2020-09-01 00:00:00 Telephone Kwame Medina [facility] Professio nal Building 1.2.840.114 350.1.13.10 4.2.7.2.686 [id number] 134 [id number] [facility] 2020-08-17 15:30:31 2020-08-17 16:00:31 Telemedici ne Visit Kolby Diaz [facility] [place] lEiud Gould Count includes the [facility] 1.2.840.114 350.1.13.10 4.2.7.2.686 [id number] 134 [id number] 2020-08-17 15:30:31 2020-08-17 16:00:31 Telemedici ne Visit Kolby Diaz [facility] 1.2840.114 350.1.13.10 4.2.7.2.686 [id number] 134 [id number] [facility] 2020-08-17 15:30:00 2020-08-17 15:30:00 Outpatient R KOLBY DIAZ [facility] [id number] [facility] 2020-07-20 16:27:25 2020-07-20 16:42:25 Routine Visit Kolby Diaz [facility] 1.2.840.114 350.1.13.10 4.2.7.2.686 [id number] 134 [id number] [facility] 2020-07-20 16:27:25 2020-07-20 16:42:25 Routine Visit Kolby Diaz [facility] 1.2.840.114 350.1.13.10 4.2.7.2.686 [id number] 134 [id number] 2020-07-20 16:30:00 2020-07-20 16:30:00 [facility] [id number] [facility] 2020-07-20 00:00:00 2020-07-20 00:00:00 Orders Only Doctor Unassigned, Philippi [facility] 1.2.840.114 350.1.13.10 4.2.7.2.686 [id number] [facility] 2020-07-20 00:00:00 2020-07-20 00:00:00 Orders Only Doctor Unassigned, Philippi [facility] 1.2840.114 350.1.13.10 4.2.7.2.686 [id number] [id number] 2020-07-13 15:00:00 2020-07-13 15:00:00 Outpatient R KOLBY DIAZ [facility] [id number] [facility] 2020-06-24 15:57:14 2020-06-24 16:12:14 Transmitter Engineer Visit 2, Adc Lab Kwame Medina [facility] Building 1.2840.114 350.1.13.10 4.2.7.2.686 [id number] [facility] 2020-06-24 15:57:14 2020-06-24 16:12:14 Transmitter Engineer Visit 2, Adc Lab [facility] Building 1.2840.114 350.1.13.10 4.2.7.2.686 [id number] 2020-06-24 15:00:00 2020-06-24 15:00:00 Outpatient R KWAME MEDINA [facility] [id number] [facility] 2020-06-24 00:00:00 2020-06-24 00:00:00 Telephone Kolby Diaz [facility] Building 1.2840.114 350.1.13.10 4.2.7.2.686 [id number] 134 [id number] [facility] 2020-06-24 00:00:00 2020-06-24 00:00:00 Case Management Kwame Medina [facility] Building 1.2840.114 350.1.13.10 4.2.7.2.686 [id number] 134 [id number] [facility] 2020-06-24 00:00:00 2020-06-24 00:00:00 Orders Only Doctor Unassigned, Philippi [facility] 1.2840.114 350.1.13.10 4.2.7.2.686 [id number] [facility] 2020-06-24 00:00:00 2020-06-24 00:00:00 Telephone Kolby Diaz [facility] 1.2.840.114 350.1.13.10 4.2.7.2.686 [id number] 134 [id number] 2020-06-24 00:00:00 2020-06-24 00:00:00 Case Management MedinaKwame [facility] 1.2.840.114 350.1.13.10 4.2.7.2.686 [id number] 134 [id number] 2020-06-24 00:00:00 2020-06-24 00:00:00 Orders Only Doctor Unassigned, Philippi [facility] 1.2.840.114 350.1.13.10 4.2.7.2.686 [id number] [id number] 2020-06-23 15:02:55 2020-06-23 16:16:06 Nurse Visit Nurse, [facility] MedinaKwame [facility] 1.2.840.114 350.1.13.10 4.2.7.2.686 [id number] 134 [id number] [facility] 2020-06-23 15:02:55 2020-06-23 16:16:06 Nurse Visit Nurse, [facility] 1.2.840.114 350.1.13.10 4.2.7.2.686 [id number] 134 [id number] 2020-06-23 15:00:00 2020-06-23 15:00:00 Outpatient R [facility] [id number] [facility] 2020-06-19 09:15:00 2020-06-19 09:15:00 Outpatient R KWAME MEDINA [facility] [id number] [facility] 2020-06-15 15:16:00 2020-06-17 20:45:00 Hospital Encounter Medina, Kwame [facility] 1.2.840.114 350.1.13.10 4.2.7.2.686 [id number] [facility] 2020-06-15 15:16:00 2020-06-17 20:45:00 Hospital Encounter Kwame Medina [facility] 1.2.840.114 350.1.13.10 4.2.7.2.686 [id number] 2020-06-17 10:45:00 2020-06-17 10:45:00 [facility] [id number] [facility] 2020-06-15 13:22:52 2020-06-15 14:38:56 Routine Visit Kwame Medina [facility] Professio nal Building 1.2.840.114 350.1.13.10 4.2.7.2.686 [id number] 134 [id number] [facility] 2020-06-15 13:22:52 2020-06-15 14:38:56 Routine Visit Kwame Medina [facility] Professio nal Building 1.2.840.114 350.1.13.10 4.2.7.2.686 [id number] 134 [id number] 2020-06-15 13:00:00 2020-06-15 13:00:00 Outpatient R KWAME MEDINA [facility] [id number] [facility] 2020-06-15 12:10:07 2020-06-15 12:25:07 Transmitter Engineer Visit 2, Adc Lab Kolby Diaz [facility] Professio nal Building 1.2.840.114 350.1.13.10 4.2.7.2.686 [id number] [facility] 2020-06-15 12:10:07 2020-06-15 12:25:07 Transmitter Engineer Visit 2, Adc Lab [facility] Professio nal Building 1.2.840.114 350.1.13.10 4.2.7.2.686 [id number] 2020-06-12 16:26:50 2020-06-12 17:41:09 Routine Visit Kolby Diaz [facility] Building 1.2.840.114 350.1.13.10 4.2.7.2.686 [id number] 134 [id number] [facility] 2020-06-12 16:26:50 2020-06-12 17:41:09 Routine Visit Kolby Diaz [facility] Building 1.2.840.114 350.1.13.10 4.2.7.2.686 [id number] 134 [id number] 2020-06-12 16:37:37 2020-06-12 16:52:37 Transmitter Engineer Visit 2, Adc Lab Emily [facility] 1.2.840.114 350.1.13.10 4.2.7.2.686 [id number] 353 [id number] [facility] 2020-06-12 16:37:37 2020-06-12 16:52:37 Transmitter Engineer Visit 2, [facility] 1.2.840.114 350.1.13.10 4.2.7.2.686 [id number] 2020-06-12 16:30:00 2020-06-12 16:30:00 [facility] [id number] [facility] 2020-06-12 00:00:00 2020-06-12 00:00:00 Orders Only Doctor Unassigned, Philippi [facility] 1.2.840.114 350.1.13.10 4.2.7.2.686 [id number] [facility] 2020-06-12 00:00:00 2020-06-12 00:00:00 Orders Only Doctor Unassigned, Philippi [facility] 1.2.840.114 350.1.13.10 4.2.7.2.686 [id number] 2020-06-11 00:00:00 2020-06-11 00:00:00 Patient Secure Msg Doctor Unassigned, Philippi [facility] BUILDING 1.2.840.114 350.1.13.10 4.2.7.2.686 [id number] 134 [id number] [facility] 2020-06-10 16:00:00 2020-06-10 16:00:00 Outpatient R EMILY KOLBY [facility] [id number] [facility] 2020-05-22 14:55:48 2020-05-28 13:46:17 Telemedici ne Visit Kwame Medina [facility] 1..840.114 350.1.13.10 4.2.7.2.686 [id number] 134 [id number] [facility] 2020-05-22 14:55:48 2020-05-28 13:46:17 Telemedici ne Visit Kwame Medina [facility] 1..840.114 350.1.13.10 4.2.7.2.686 [id number] 134 [id number] 2020-05-25 00:00:00 2020-05-25 00:00:00 Patient Secure Msg Doctor Unassigned, Philippi [facility] 1..840.114 350.1.13.10 4.2.7.2.686 [id number] 134 [id number] [facility] 2020-05-22 16:15:00 2020-05-22 16:15:00 Outpatient R CAROL KWMAE [facility] [id number] [facility] 2020-05-11 08:26:55 2020-05-11 08:41:55 Transmitter Engineer Visit Pob, Adc Lab Main Kwame Medina [facility] Building 1..840.114 350.1.13.10 4.2.7.2.686 [id number] [facility] 2020-05-11 08:30:00 2020-05-11 08:30:00 Outpatient R KWAME MEDINA [facility] [id number] [facility] 2020-05-11 00:00:00 2020-05-11 00:00:00 Case Management Emily [facility] 1..840.114 350.1.13.10 4.2.7.2.686 [id number] 134 [id number] [facility] 2020-05-08 13:42:24 2020-05-08 14:13:08 Routine Visit Kolby Diaz [facility] 1.840.114 350.1.13.10 4.2.7.2.686 [id number] 134 [id number] [facility] 2020-05-08 13:45:00 2020-05-08 13:45:00 Outpatient R EMILY [facility] [id number] [facility] 2020-05-08 00:00:00 2020-05-08 00:00:00 Orders Only Doctor Unassigned, Philippi [facility] 1.84.114 350.1.13.10 4.2.7.2.686 [id number] [facility] 2020-05-01 10:30:00 2020-05-01 10:30:00 Outpatient R [facility] [id number] [facility] 2020-04-30 00:00:00 2020-04-30 00:00:00 Case Management Kwame Medina [facility] 1.840.114 350.1.13.10 4.2.7.2.686 [id number] [facility] 2020-04-30 00:00:00 2020-04-30 00:00:00 Orders Only Doctor Unassigned, [place] [facility] 1.2.114 350.1.13.10 4.2.7.2.686 [id number] [facility] 2020-04-28 08:45:00 2020-04-28 08:45:00 Outpatient R [facility] [id number] [facility] 2020-04-28 00:00:00 2020-04-28 00:00:00 Patient Secure Msg [facility] 1.2.840.114 350.1.13.10 4.2.7.2.686 [id number] [facility] 2020 00:00:00 2020 00:00:00 Patient Secure M[facility] 1.2.840.114 350.1.13.10 4.2.7.2.686 [id number] [facility] 2020-04-24 15:47:01 2020-04-24 16:33:28 Routine Visit Kwame Medina [facility] 1..840.114 350.1.13.10 4.2.7.2.686 [id number] [facility] 2020-04-24 15:45:00 2020-04-24 15:45:00 [facility] [facility] [id number] [facility] 2020-04-23 10:00:00 2020-04-23 10:00:00 Outpatient R KWAME MEDINA [facility] [id number] [facility] 2020-03-26 10:25:59 2020-03-26 11:08:15 Telemedici ne Visit Kolby Diaz [facility] Building 1.2.840.114 350.1.13.10 4.2.7.2.686 [id number] 134 [id number] [facility] 2020-03-26 10:15:00 2020-03-26 10:15:00 Outpatient R GUDELIA DIAZCY [facility] [id number] [facility] 2020-02-25 13:04:22 2020-02-25 14:11:00 Routine Visit Kwame Medina [facility] 1.2.840.114 350.1.13.10 4.2.7.2.686 [id number] [facility] 2020-02-25 13:00:00 2020-02-25 13:00:00 Outpatient R KWAME MEDINA [facility] [id number] [facility] 2020-02-24 09:00:00 2020-02-24 09:00:00 Outpatient R DANITA DUQUEDAYakelin [facility] [id number] [facility] 2020-02-20 00:00:00 2020-02-20 00:00:00 Patient Secure Msg Kwame Medina [facility] Building 1.2.840.114 350.1.13.10 4.2.7.2.686 [id number] [facility] 2020-02-18 00:00:00 2020-02-18 00:00:00 Patient Secure Msg [facility] Building 1.2.840.114 350.1.13.10 4.2.7.2.686 [id number] 134 [id number] [facility] 2020-02-17 00:00:00 2020-02-17 00:00:00 Patient Secure Msg Kwame Medina [facility] 1.2.840.114 350.1.13.10 4.2.7.2.686 [id number] 134 [id number] [facility] 2020-02-17 00:00:00 2020-02-17 00:00:00 Patient Secure Msg [facility] 1.2.840.114 350.1.13.10 4.2.7.2.686 [id number] 134 [id number] [facility] 2020-02-14 12:59:43 2020-02-14 14:04:05 Transmitter Engineer Visit Ultrasound, Adc Mfm Kwame Medina [facility] Building 1.114 350.1.13.10 4.2.7.2.686 [id number] 134 [id number] [facility] 2020-02-14 13:00:00 2020-02-14 13:00:00 Outpatient R [facility] [id number] [facility] 2020-02-11 08:04:26 2020-02-11 14:56:32 Telemedici ne Visit Kwame Medina [facility] 1..114 350.1.13.10 4.2.7.2.686 [id number] 134 [id number] [facility] 2020-02-11 13:30:00 2020-02-11 13:30:00 Outpatient R KWAME MEDINA [facility] [id number] [facility] 2020-02-04 00:00:00 2020-02-04 00:00:00 Patient Secure Msg Kwame Medina [facility] 1..114 350.1.13.10 4.2.7.2.686 [id number] 134 [id number] [facility] 2020-01-22 00:00:00 2020-01-22 00:00:00 Patient Secure Msg Kwame Medina [facility] 1..114 350.1.13.10 4.2.7.2.686 [id number] 134 [id number] [facility] 2020-01-20 00:00:00 2020-01-20 00:00:00 Patient Secure Msg Doctor Unassigned, [place] [facility] REWIND OPERATOR [facility] & [facility]ILD [facility] 1.114 350.1.13.10 4.2.7.2.686 [id number] 107 [id number] [facility] 2020-01-15 00:00:00 2020-01-15 00:00:00 Telephone Kwame Medina [facility] REWIND OPERATOR [facility] 1.2.840.114 350.1.13.10 4.2.7.2.686 [id number] 107 [id number] [facility] 2020-01-14 14:41:49 2020-01-14 14:56:49 Transmitter Engineer Visit 2, Adc Lab Kolby Diaz [facility] 1.2.840.114 350.1.13.10 4.2.7.2.686 [id number] [facility] 2019-12-17 15:06:28 2020-01-14 14:32:21 Routine Visit Kwame Medina [facility] 1.2.840.114 350.1.13.10 4.2.7.2.686 [id number] 134 [id number] [facility] 2020-01-14 13:00:00 2020-01-14 13:00:00 [facility] [id number] [facility] 2020-01-14 08:11:05 2020-01-14 08:26:05 Telemedici ne Visit Emily [facility] 1.2.840.114 350.1.13.10 4.2.7.2.686 [id number] 134 [id number] [facility] 2020-01-03 00:00:00 2020-01-03 00:00:00 Telephone Kwame Medina [facility] Building 1.2.840.114 350.1.13.10 4.2.7.2.686 [id number] 134 [id number] [facility] 2019-12-31 00:00:00 2019-12-31 00:00:00 Case Management Kwame Medina [facility] 1..114 350.1.13.10 4.2.7.2.686 [id number] 134 [id number] [facility] 2019-12-18 00:00:00 2019-12-18 00:00:00 Orders Only Doctor Unassigned, Philippi [facility] 1..114 350.1.13.10 4.2.7.2.686 [id number] [facility] 2019-12-17 15:00:00 2019-12-17 15:00:00 Outpatient R KWAME MEDINA [facility] [id number] [facility] 2019-12-03 00:00:00 2019-12-03 00:00:00 Abstract Ashwini uDque [facility] REWIND OPERATOR [facility]NAL & CHILD [facility] 1..114 350.1.13.10 4.2.7.2.686 [id number] [facility] 2019-12-02 09:30:00 2019-12-02 10:20:45 Outpatient P NADIRA BARKLEY SANGEETA [facility] [id number] [facility] 2019-12-02 00:00:00 2019-12-02 00:00:00 Patient Secure Msg Ashwini Duque [facility] REWIND OPERATOR [facility]NAL & CHILD [facility] 1..114 350.1.13.10 4.2.7.2.686 [id number] 107 [id number] [facility] 2019-11-27 00:00:00 2019-11-27 00:00:00 Telephone Ashwini Duque [facility] REWIND OPERATOR [facility] & CHILD [facility] 1..114 350.1.13.10 4.2.7.2.686 [id number] 107 [id number] [facility] 2019-11-26 09:02:59 2019-11-26 09:33:10 Nurse Visit Visit, [facility] Nurse Ashwini Duque [facility] REWIND OPERATOR [facility]NAL & CHILD [facility] 1.2.840.114 350.1.13.10 4.2.7.2.686 [id number] [facility] 2019-11-26 09:00:00 2019-11-26 09:33:10 Outpatient R DANITA DUQUERIVERA [facility] [id number] [facility] 2019-11-26 00:00:00 2019-11-26 00:00:00 Patient Secure Msg Danita Duquerivera Barlow [facility] REWIND OPERATOR [facility] & CHILD [facility] 1.2.840.114 350.1.13.10 4.2.7.2.686 [id number] [facility] 2019-11-26 00:00:00 2019-11-26 00:00:00 Telephone Danita Duquerivera Barlow [facility] REWIND OPERATOR [facility] & CHILD [facility] 1.2.840.114 350.1.13.10 4.2.7.2.686 [id number] 107 [id number] [facility] 2019-11-25 00:00:00 2019-11-25 00:00:00 Telephone Daren Duqueyakelin Yen [facility] REWIND OPERATOR [facility] CHILD [facility] 1.2.840.114 350.1.13.10 4.2.7.2.686 [id number] [facility] 2019-11-25 00:00:00 2019-11-25 00:00:00 Telephone Daren Duqueyakelin Yen [facility] REWIND OPERATOR [facility] & CHILD [facility] 1.2.840.114 350.1.13.10 4.2.7.2.686 [id number] [facility] 2019-11-22 08:15:00 2019-11-22 09:15:43 Outpatient R DANITA DUQUERIVERA [facility] [id number] [facility] 2019-11-22 09:10:45 2019-11-22 09:13:53 Transmitter Engineer Visit Lab, [facility] Ashwini Duque [facility] REWIND OPERATOR [facility] & CHILD [facility] 1.2.840.114 350.1.13.10 4.2.7.2.686 [id number] [facility] 2019-11-22 00:00:00 2019-11-22 00:00:00 Telephone Ashwini Duque [facility] REWIND OPERATOR [facility] & CHILD [facility] 1.2.840.114 350.1.13.10 4.2.7.2.686 [id number] 107 [id number] [facility] 2019-11-19 09:08:50 2019-11-19 10:18:48 Initial Visit Ashwini Duque [facility] 1.2.840.114 350.1.13.10 4.2.7.2.686 [id number] 107 [id number] [facility] 2019-11-19 08:30:00 2019-11-19 09:16:47 Outpatient R ASHWINI DUQUE [facility] [id number] [facility] 2019-11-19 00:00:00 2019-11-19 00:00:00 Orders Only Doctor Unassigned, Philippi [facility] 1.2840.114 350.1.13.10 4.2.7.2.686 [id number] [facility] Results Test Description Test Time Test Comments Results Result Co mments Source [facility] MOLECULAR [id number] 21:50:06* Test Item Value Reference Range Interpretation Comme nts POCT Molecular FluA (test co de = 83464-8) Negative Negative POCT Molecular FluB (test co de = 41352-4) Negative Negative Lab Interpretation (test cod e = 23425-6) Normal [facility] MOLECULAR [id number] 21:39:16* Test Item Value Reference Range Interpretation Comme nts POCT Molecular Strep (test c ode = 00284-5) Positive Negative A Lab Interpretation (test cod e = 22824-3) Abnormal [facility] with [id number] 10:25:49* Test Item Value Reference Range Interpretation Comme nts WBC (test code = 6690-2) 8.95 See_Comment [Automated messa ge] The system which generated this result transmitted reference range: 4.30 - 11.10 10*3/?L. The reference range was not used to interpret this result as normal/abnormal. RBC (test code = 789-8) 3.66 See_Comment L [Automated messa ge] The system which generated this result transmitted reference range: 3.93 - 5.25 10*6/?L. The reference range was not used to interpret this result as normal/abnormal. HGB (test code = 718-7) 9.2 g/dL 11.6-15.0 L HCT (test code = 4544-3) 30.4 % 35.7-45.2 L MCV (test code = 787-2) 83.1 fL 80.6-95.5 MCH (test code = 785-6) 25.1 pg 25.9-32.8 L MCHC (test code = 786-4) 30.3 g/dL 31.6-35.1 L RDW-SD (test code = 78116-0) 44.3 fL 39.0-49.9 RDW-CV (test code = 788-0) 15.2 % 12.0-15.5 PLT (test code = 777-3) 293 See_Comment [Automated messa ge] The system which generated this result transmitted reference range: 166 - 358 10*3/?L. The reference range was not used to interpret this result as normal/abnormal. MPV (test code = 57669-3) 11.5 fL 9.5-12.9 NRBC/100 WBC (test code = 3392217636) 0.0 See_Comment [Automated [employer] ssage] The system which generated this result transmitted reference range: 0.0 - 10.0 /100 WBCs. The reference range was not used to interpret this result as normal/abnormal. NRBC x10^3 (test code = 9231525685) See_Comment [Automated messa ge] The system which generated this result transmitted reference range: 10*3/?L. The reference range was not used to interpret this result as normal/abnormal. GRAN MAT (NEUT) % (test code = 770-8) 73.9 % IMM GRAN % (test code = 8926294142) 0.30 % LYMPH % (test code = 736-9) 18.0 % MONO % (test code = 5905-5) 6.6 % EOS % (test code = 713-8) 0.9 % BASO % (test code = 706-2) 0.3 % GRAN MAT x10^3(ANC) (test code = 0955426176) 6.61 10*3/uL 1.88-7.09 IMM GRAN x10^3 (test code = 9517119250) 0.03 10*3/uL 0.00-0.06 LYMPH x10^3 (test code = 731-0) 1.61 10*3/uL 1.32-3.29 MONO x10^3 (test code = 742-7) 0.59 10*3/uL 0.33-0.92 EOS x10^3 (test code = 711-2) 0.08 10*3/uL 0.03-0.39 BASO x10^3 (test code = 704-7) 0.03 10*3/uL 0.01-0.07 Lab Interpretation (test code = 72836-7) Abnormal [facility] Surface [id number] 06:09:58 * Test Item Value Reference Range Interpretation Comme nts HBsAg Semi-Quantitative (ronny t code = 5195-3) 0.05 Negative [facility] OR [place]ARA ONLY - [id number] 04:50:41* Test Item Value Reference Range Interpretation Comme nts RPR (Qualitative) (test code = 96312-3) Nonreactive Nonreactive Lab Interpretation (test cod e = 90686-4) Normal [facility] DallasRHO (D) IMMUNE [id number] 04:04:00* Test Item Value Reference Range Interpretation Comme nts RHIG CANDIDATE? (test code = 5188) No- see comment Patient is not a candidate for RhIg- Patient is Rh Positive.Performed at [facility] Laboratory Services - [facility] Blood [id number] [place] [id number] Free: [phone] No. [id number] [facility] DallasHIV 1/2 AG-AB WITH [id number] 02:59:32* Test Item Value Reference Range Interpretation Comme nts HIV Semi-quantitative (test code = 49066-1) 0.11 Negative TIAN (test code = TIAN) Non-reactive for HIV-1 antigen and HIV-1/HIV-2 antibodies. ?No laboratory evidence of HIV infection. ?Repeat in 2-4 weeks if acute HIV infection is suspected. [facility] DallasCBC with [id number] 02:00:28* Test Item Value Reference Range Interpretation Comme nts WBC (test code = 6690-2) 6.73 See_Comment [Automated messa ge] The system which generated this result transmitted reference range: 4.30 - 11.10 10*3/?L. The reference range was not used to interpret this result as normal/abnormal. RBC (test code = 789-8) 3.75 See_Comment L [Automated messa ge] The system which generated this result transmitted reference range: 3.93 - 5.25 10*6/?L. The reference range was not used to interpret this result as normal/abnormal. HGB (test code = 718-7) 9.7 g/dL 11.6-15.0 L HCT (test code = 4544-3) 30.8 % 35.7-45.2 L MCV (test code = 787-2) 82.1 fL 80.6-95.5 MCH (test code = 785-6) 25.9 pg 25.9-32.8 MCHC (test code = 786-4) 31.5 g/dL 31.6-35.1 L RDW-SD (test code = 46370-0) 43.8 fL 39.0-49.9 RDW-CV (test code = 788-0) 15.5 % 12.0-15.5 PLT (test code = 777-3) 313 See_Comment [Automated messa ge] The system which generated this result transmitted reference range: 166 - 358 10*3/?L. The reference range was not used to interpret this result as normal/abnormal. MPV (test code = 38935-4) 11.6 fL 9.5-12.9 NRBC/100 WBC (test code = 4651321880) 0.0 See_Comment [Automated me ssage] The system which generated this result transmitted reference range: 0.0 - 10.0 /100 WBCs. The reference range was not used to interpret this result as normal/abnormal. NRBC x10^3 (test code = 8660493135) See_Comment [Automated messa ge] The system which generated this result transmitted reference range: 10*3/?L. The reference range was not used to interpret this result as normal/abnormal. GRAN MAT (NEUT) % (test code = 770-8) 68.4 % IMM GRAN % (test code = 9477409315) 0.30 % LYMPH % (test code = 736-9) 22.4 % MONO % (test code = 5905-5) 6.7 % EOS % (test code = 713-8) 1.9 % BASO % (test code = 706-2) 0.3 % GRAN MAT x10^3(ANC) (test code = 9682330922) 4.60 10*3/uL 1.88-7.09 IMM GRAN x10^3 (test code = 8609203633) 0.00-0.06 LYMPH x10^3 (test code = 731-0) 1.51 10*3/uL 1.32-3.29 MONO x10^3 (test code = 742-7) 0.45 10*3/uL 0.33-0.92 EOS x10^3 (test code = 711-2) 0.13 10*3/uL 0.03-0.39 BASO x10^3 (test code = 704-7) 0.01-0.07 Lab Interpretation (test code = 69478-4) Abnormal [facility] DallasType and Screen - ONCE [id number] 01:54:00 * Test Item Value Reference Range Interpretation Comme nts ABO & RH (test code = 20) O Positive IAT (test code = 1185) Negative [facility] DallasPOCT URINALYSIS W/O SPECIFIC [id number] 19:11:00* Test Item Value Reference Range Interpretation Comme nts POCT PH U (test code = 3254) n/a 5-8 POCT U LEUK EST (test code = 3263) n/a Negative - Negative POCT U NIT (test code = 3262) n/a Negative - Negati ve POCT U PROT (test code = 3259) negative Negative - Negat irineo POCT U GLU (test code = 3256) negative Negative - Negati ve POCT U KETONE (test code = 3258) n/a Negative - Neg ative POCT U BLD (test code = 3257) n/a Negative - Negati ve [facility] URINALYSIS W/O SPECIFIC [id number] 15:18:00* Test Item Value Reference Range Interpretation Comme nts POCT PH U (test code = 3254) n/a 5-8 POCT U LEUK EST (test code = 3263) n/a Negative - Negative POCT U NIT (test code = 3262) n/a Negative - Negati ve POCT U PROT (test code = 3259) Trace Negative - Negat irineo POCT U GLU (test code = 3256) negative Negative - Negati ve POCT U KETONE (test code = 3258) n/a Negative - Neg ative POCT U BLD (test code = 3257) n/a Negative - Negati ve [facility] URINALYSIS W/O SPECIFIC [id number] 18:41:00* Test Item Value Reference Range Interpretation Comme nts POCT PH U (test code = 3254) n/a 5-8 POCT U LEUK EST (test code = 3263) n/a Negative - Negative POCT U NIT (test code = 3262) n/a Negative - Negati ve POCT U PROT (test code = 3259) Negative Negative - Negat irineo POCT U GLU (test code = 3256) Normal Negative - Negati ve POCT U KETONE (test code = 3258) n/a Negative - Neg ative POCT U BLD (test code = 3257) n/a Negative - Negati ve [facility] URINALYSIS W/O SPECIFIC [id number] 20:43:00* Test Item Value Reference Range Interpretation Comme nts POCT PH U (test code = 3254) n/a 5-8 POCT U LEUK EST (test code = 3263) n/a Negative - Negative POCT U NIT (test code = 3262) n/a Negative - Negati ve POCT U PROT (test code = 3259) negative Negative - Negat irineo POCT U GLU (test code = 3256) negative Negative - Negati ve POCT U KETONE (test code = 3258) n/a Negative - Neg ative POCT U BLD (test code = 3257) n/a Negative - Negati ve [facility] URINALYSIS W/O SPECIFIC [id number] 19:28:00* Test Item Value Reference Range Interpretation Comme nts POCT PH U (test code = 3254) n/a 5-8 POCT U LEUK EST (test code = 3263) n/a Negative - N egative POCT U NIT (test code = 3262) n/a Negative - Negati ve POCT U PROT (test code = 3259) trace Negative - Negat irineo POCT U GLU (test code = 3256) normal Negative - Negati ve POCT U KETONE (test code = 3258) n/a Negative - Neg ative POCT U BLD (test code = 3257) n/a Negative - Negati ve [facility] URINALYSIS W/O SPECIFIC [id number] 17:27:00* Test Item Value Reference Range Interpretation Comme nts POCT PH U (test code = 3254) n/a 5-8 POCT U LEUK EST (test code = 3263) n/a Negative - Negative POCT U NIT (test code = 3262) n/a Negative - Negati ve POCT U PROT (test code = 3259) negative Negative - Negat irineo POCT U GLU (test code = 3256) negative Negative - Negati ve POCT U KETONE (test code = 3258) n/a Negative - Neg ative POCT U BLD (test code = 3257) n/a Negative - Negati ve [facility] URINALYSIS W/O SPECIFIC [id number] 19:28:00* Test Item Value Reference Range Interpretation Comme nts POCT PH U (test code = 3254) 7 mg/dl 5-8 POCT U LEUK EST (test code = 3263) Negative Negative - Negative POCT U NIT (test code = 3262) Negative Negative - Negati ve POCT U PROT (test code = 3259) Negative Negative - Negat irineo POCT U GLU (test code = 3256) Normal Negative - Negati ve POCT U KETONE (test code = 3258) Negative Negative - Neg ative POCT U BLD (test code = 3257) Negative Negative - Negati ve [facility] URINALYSIS W/O SPECIFIC [id number] 15:04:00* Test Item Value Reference Range Interpretation Comme nts POCT PH U (test code = 3254) n/a 5-8 POCT U LEUK EST (test code = 3263) n/a Negative - Negative POCT U NIT (test code = 3262) n/a Negative - Negati ve POCT U PROT (test code = 3259) trace Negative - Negat irineo POCT U GLU (test code = 3256) negative Negative - Negati ve POCT U KETONE (test code = 3258) n/a Negative - Neg ative POCT U BLD (test code = 3257) n/a Negative - Negati ve [facility] URINALYSIS W/O SPECIFIC [id number] 21:59:00* Test Item Value Reference Range Interpretation Comme nts POCT PH U (test code = 3254) n/a 5-8 POCT U LEUK EST (test code = 3263) n/a Negative - N egative POCT U NIT (test code = 3262) n/a Negative - Negati ve POCT U PROT (test code = 3259) neg Negative - Negat irineo POCT U GLU (test code = 3256) neg Negative - Negati ve POCT U KETONE (test code = 3258) n/a Negative - Neg ative POCT U BLD (test code = 3257) n/a Negative - Negati ve [facility] [id number] 21:18:00* Test Item Value Reference Range Interpretation Comme nts POCT PREG (test code = 1605) Positive On board controls acceptable with C Line (test code = 3574) Yes POCT PREG LOT # (test code = 3575) POCT PREG TEST DATE ( test code = 3576) [facility] URINALYSIS W/O SPECIFIC [id number] 21:18:00* Test Item Value Reference Range Interpretation Comme nts POCT PH U (test code = 3254) n/a 5-8 POCT U LEUK EST (test code = 3263) n/a Negative - N egative POCT U NIT (test code = 3262) n/a Negative - Negati ve POCT U PROT (test code = 3259) Trace Negative - Negat irineo POCT U GLU (test code = 3256) Normal Negative - Negati ve POCT U KETONE (test code = 3258) n/a Negative - Neg ative POCT U BLD (test code = 3257) n/a Negative - Negati ve [facility] [id number] 06:34:00* Test Item Value Reference Range Interpretation Comme nts POCT PREG (test code = 1605) positive On board controls acceptable with C Line (test code = 3574) present POCT PREG LOT # (test code = 3575) [id number] POCT PREG TEST DATE ( test code = 3576) 2023-10-15 Lab Interpretation (test cod e = 05130-2) Normal [facility] [id number] 15:02:00* Test Item Value Reference Range Interpretation Comme nts SODIUM (test code = NA) 139 mEq/L 134-147 N POTASSIUM (test code = K) 3.5 mEq/L 3.4-5.0 N CHLORIDE (test code = CL) 109 mEq/L 100-108 H CARBON DIOXIDE (test code = CO2) 22 mEq/l 21-33 N ANION GAP (test code = GAP) 12 0-20 N GLUCOSE (test code = GLU) 105 mg/dL 70-110 N BLOOD UREA NITROGEN (test code = BUN) 6 mg/dL 7-18 L GLOMERULAR FILTRATION RATE (test code = GFR) 157.3 110-120 H Units of measure = ml/min/1.73 m2 CREATININE (test code = CREAT) 0.5 mg/dL 0.6-1.3 L CALCIUM (test code = CA) 9.1 mg/dL 8.0-10.5 N HCG SERUM [id number] 15:02:00* Test Item Value Reference Range Interpretation Comme nts HCG SERUM QUAL (test code = HCGQL) SERUM POSITIVE NEGATIVE A BASIC METABOLIC [id number] 14:51:00* Test Item Value Reference Range Interpretation Comme nts SODIUM (test code = NA) mEq/L 134-147 POTASSIUM (test code = K) mEq/L 3.4-5.0 CHLORIDE (test code = CL) mEq/L 100-108 CARBON DIOXIDE (test code = CO2) mEq/l 21-33 ANION GAP (test code = GAP) 0-20 GLUCOSE (test code = GLU) mg/dL 70-110 BLOOD UREA NITROGEN (test code = BUN) mg/dL 7-18 GLOMERULAR FILTRATION RATE ( test code = GFR) 110-120 CREATININE (test code = CREAT) mg/dL 0.6-1.3 CALCIUM (test code = CA) mg/dL 8.0-10.5 HCG SERUM [id number] 14:51:00* Test Item Value Reference Range Interpretation Comme [facility] HCG SERUM QUAL (test code = HCGQL) SERUM POSITIVE NEGATIVE A CBC W/AUTO [id number] 14:43:00* Test Item Value Reference Range Interpretation Comme nts WHITE BLOOD CELL (test code = WBC) 10.3 x10 3/uL 4.5-11.0 N RED BLOOD CELL (test code = RBC) 4.31 x10 6/uL 3.54-5.02 N HEMOGLOBIN (test code = HGB) 10.9 g/dL 11.0-15.0 L HEMATOCRIT (test code = HCT) 35.9 % 33.0-45.0 N MEAN CELL VOLUME (test code = MCV) 83.3 fL 81.0-99.0 N MEAN CELL HGB (test code = MCH) 25.3 pg 27.0-33.0 L MEAN CELL HGB CONCETRATION (test code = MCHC) 30.4 g/dL 33.0-37.0 L RED CELL DISTRIBUTION WIDTH CV (test code = RDW) 15.2 % 11.5-14.5 H RED CELL DISTRIBUTION WIDTH SD (test code = RDW-SD) 46.0 fL 37.0-54.0 N PLATELET COUNT (test code = PLT) 332 x10 3/uL 150-400 N MEAN PLATELET VOLUME (test c ode = MPV) 10.7 fL 7.0-9.0 H NEUTROPHIL % (test code = NT%) 87.8 % 56.0-77.0 H IMMATURE GRANULOCYTE % (test code = IG%) 0.2 % 0.0-2.0 N LYMPHOCYTE % (test code = LY%) 7.3 % 14.0-32.0 L MONOCYTE % (test code = MO%) 3.8 % 4.8-9.0 L EOSINOPHIL % (test code = EO%) 0.5 % 0.3-3.7 N BASOPHIL % (test code = BA%) 0.4 % 0.0-2.0 N NUCLEATED RBC % (test code = NRBC%) 0.0 % 0-0 N NEUTROPHIL # (test code = NT#) 9.02 x10 3/uL 2.0-7.6 H IMMATURE GRANULOCYTE # (test code = IG#) 0.02 x10 3/uL 0.00-0.03 N LYMPHOCYTE # (test code = LY#) 0.75 x10 3/uL 1.0-3.8 L MONOCYTE # (test code = MO#) 0.39 x10 3/uL 0.1-0.8 N EOSINOPHIL # (test code = EO#) 0.05 x10 3/uL 0.0-0.2 N BASOPHIL # (test code = BA#) 0.04 x10 3/uL 0.0-0.2 N NUCLEATED RBC # (test code = NRBC#) 0.00 x10 3/uL 0.0-0.1 N MANUAL DIFF REQUIRED (test c ode = MDIFF) NO CBC W/AUTO [id number] 14:42:00* Test Item Value Reference Range Interpretation Comme nts WHITE BLOOD CELL (test code = WBC) x10 3/uL 4.5-11.0 RED BLOOD CELL (test code = RBC) x10 6/uL 3.54-5.02 HEMOGLOBIN (test code = HGB) g/dL 11.0-15.0 HEMATOCRIT (test code = HCT) 35.9 % 33.0-45.0 N MEAN CELL VOLUME (test code = MCV) fL 81.0-99.0 MEAN CELL HGB (test code = MCH) pg 27.0-33.0 MEAN CELL HGB CONCETRATION ( test code = MCHC) g/dL 33.0-37.0 RED CELL DISTRIBUTION WIDTH CV (test code = RDW) % 11.5-14.5 PLATELET COUNT (test code = PLT) 332 x10 3/uL 150-400 N NEUTROPHIL % (test code = NT%) % 56.0-77.0 LYMPHOCYTE % (test code = LY%) % 14.0-32.0 NEUTROPHIL # (test code = NT#) x10 3/uL 2.0-7.6 LYMPHOCYTE # (test code = LY#) x10 3/uL 1.0-3.8 MANUAL DIFF REQUIRED (test c ode = MDIFF) Notes Date/Time Note Provider Source 2023-05-05 16:45:04 p82WLQDqNwlQqtUKERa4/fuaBWAjvWG9AIJzRKo Y6IeT0q4AgYC5q1HwzdvLjImX4103-47-75H15: 45:04 Rx sent by provider. Patient notified via voicemail. William Sanchez RN 05/05/2023 4:45 PM 20182-8Kxxbfzblp encounter JcabDS7401-88-23W81:45:22Telephone encounter NoteTXT1.2.840.612227.1.13.104.2.7.2.72 7879|[id number] for patient [id number] Collins RN[address] Mzdy[id number] XEJLCKFTMITYPGMEMDC5633-04-88T15:45:221 .2.840.770819.1.72.3.15|1.2.840.185344. 1.13.104.2.7.2.727879_[id number] William Sanchez RN [facility] 2023-05-05 10:44:57 6JQmqHxGE6OL1ilQFjRe5z7/dKM29HdCFC9cl+R gnsZ+IJEbgRnRd0cvv3b/lPYx2045-95-36F20: 44:57 Patient is requesting refill on acyclovir 400 mg tablet 10793-6Gjwdifnby encounter LjuvVU9131-89-22G71:46:42Telephone encounter NoteTXT1.2.840.292240.1.13.104.2.7.2.72 7879|[id number] for patient [id number] N [address] Ib[id number] WKMOKYOARLTKFIIHSTA3753-39-79F50:46:421 .2.840.507254.1.72.3.15|1.2.840.018906. 1.13.104.2.7.2.727879_[id number] Anisa Arroyo [facility] 2021-01-07 15:21:00 [id number]/ U6d6TDBctFW1OKm5Gr4qIm5i0bR1GbL3toAJ5Wy xeyTU5326-27-65E31:21:00 [facility] PROVID[facility] REPORTREPORT#:[id number] REPORT STATUS: SignedDATE:01/07/21 TIME: 1521 PATIENT: JENNIFER WEBER UNIT #: [id number]#: [id number] ROOM/BED:AGE: 20 SEX: F PCP PHYS: No Primary or Family PhysicianSERVICE AUTHOR: Tadeo Wilder MD * ALL edits or amendments must be made on the electronic/computer document * HPI-General Illness Free Text HPI NotesFree Text HPI Yfezj82-ljpb-qrv female with no significant past medical history presenting for evaluation due to anxiety, nausea, and vomiting today at home. Patient states that she has been under an extreme amount of stress between a 6-month-old baby and her mother recently being admitted to the hospital for severe heart attack and anoxic brain injury. This week her mother was placed on hospice care and they have been having to fill all her paperwork. Patient denies any chest pain,shortness of breath, headache, fevers, chills, body aches, abdominal pain, diarrhea, dysuria, frequency, vaginal bleeding, vaginal discharge. GeneralInitial Greet Date/Time 01/07/21 1330 PresentationChief Complaint nausea, vomiting, anxiety Review of Systems Free Text ROS NotesFree Text ROS NotesReview of systems:-Constitutional: No fever, chills, fatigue-EENT: No runny nose, sore throat-Cardiovascular: No chest pain, palpitations, syncope-Respiratory: No shortness of breath, cough, wheezing-GI: No abdominal pain, positive nausea, positive vomiting, no diarrhea-: No pain or burning with urination, no blood in the urine-Musculoskeletal: No joint pain, muscle pain, back pain-Skin: No rash, abrasion-Neurologic: No change in LOC, confusion, numbness or tingling-Psychiatric: No suicidal or homicidal ideations Past Medical History - AdultStated Complaint NAUSEA, VOMITING, TREMORS, ANXIETYAllergiesCoded Allergies:No Known Allergies (01/07/21) Pt reports no significant: Past medical history, Past surgical history, Family history, Social historyAlcohol Use Denies EtOH useDrug Use Denies recreational drugsSmoking status: Smoking status for patients 13 years old or older: Never Smoker Physical Exam Vital SignsVital SignsFirst Documented: Result Date Time Pulse Ox 100 01/07 1354 B/P 135/85 01/07 1354 B/P Mean 101 01/07 1354 O2 Delivery Room air 01/07 1354 Temp 36.9 01/07 1354 Pulse 88 01/07 1354 Resp 16 01/07 135 Last Documented: Result Date Time Pulse Ox 100 01/07 1534 B/P 134/85 01/07 1534 B/P Mean 101 01/07 1534 Temp 36.9 01/07 1534 Pulse 82 01/07 1534 Resp 16 01/07 1534 O2 Delivery Room air 01/07 135 Review of Vital Signs Reviewed, Vital signs normal Free Text PE NotesFree Text PE NotesGen: Well appearing, well hydrated, cooperativeHead: Normocephalic, atraumaticEyes: EOMI, normal conjunctivaENT: MMM, airway patentNeck: supple, no LADLungs: CTAB no R/R/WHeart: RRR, normal pulsesAbd: S/NT/ND, normal BS, no rebound or guardingExt: FROM BUE/LE, no deformityNeuro: A O x 3, CN II-XII grossly intact. Strength and sensation grossly intactPsych: Anxious Interpretation Diagnostics Lab Results InterpretationResultsLaboratory Tests 01/07/21 1426:[Embedded Image Not Available]Laboratory Tests: 01/07 1426 Chemistry Sodium (134 - 147 mEq/L) 139 Potassium (3.4 - 5.0 mEq/L) 3.5 Chloride (100 - 108 mEq/L) 109 H Carbon Dioxide (21 - 33 mEq/l) 22 Anion Gap (0 - 20) 12 BUN (7 - 18 mg/dL) 6 L Creatinine (0.6 - 1.3 mg/dL) 0.5 L Glomerular Filtr Rate (110 - 120) 157.3 H Glucose (70 - 110 mg/dL) 105 Calcium (8.0 - 10.5 mg/dL) 9.1 Serum , Qual (NEGATIVE) SERUM POSITIVE H Hematology WBC (4.5 - 11.0 x10 3/uL) 10.3 RBC (3.54 - 5.02 x10 6/uL) 4.31 Hgb (11.0 - 15.0 g/dL) 10.9 L Hct (33.0 - 45.0 %) 35.9 MCV (81.0 - 99.0 fL) 83.3 MCH (27.0 - 33.0 pg) 25.3 L MCHC (33.0 - 37.0 g/dL) 30.4 L RDW (11.5 - 14.5 %) 15.2 H Plt Count (150 - 400 x10 3/uL) 332 MPV (7.0 - 9.0 fL) 10.7 H Neut % (Auto) (56.0 - 77.0 %) 87.8 H Lymph % (Auto) (14.0 - 32.0 %) 7.3 L [place] % (Auto) (4.8 - 9.0 %) 3.8 L Eos % (Auto) (0.3 - 3.7 %) 0.5 Baso % (Auto) (0.0 - 2.0 %) 0.4 Neut # (Auto) (2.0 - 7.6 x10 3/uL) 9.02 H Lymph # (Auto) (1.0 - 3.8 x10 3/uL) 0.75 L [place] # (Auto) (0.1 - 0.8 x10 3/uL) 0.39 Eos # (Auto) (0.0 - 0.2 x10 3/uL) 0.05 Baso # (Auto) (0.0 - 0.2 x10 3/uL) 0.04 Abs Immat Gran (auto) (0.00 - 0.03 x10 3/uL) 0.02 Add Manual Diff NO Immature Gran % (0.0 - 2.0 %) 0.2 Nucleated RBC % (0 - 0 %) 0.0 Nucleated RBCs # (Man) (0.0 - 0.1 x10 3/uL) 0.00 Imaging StatementRadiographic studies reviewed and considered in the medical decision-making. Re-Evaluation MDM Free Text MDM NotesFree Text MDM NotesNAD, VSS, afebrile. Labs are nonactionable. test is positive. Patient anxiety has improved with Atarax. Patient will be discharged home instruction follow-up with OB regarding her positive test. ED CourseMedication(s) OrderedMedication(s) Ordered:Central Nervous System Agents Sig/Yung Start time Last Medication Dose Route Stop Time Status Admin Hydroxyzine HCl 25 MG X1ED STA 01/07 1403 DC 01/07 PO 01/07 1404 1407 Electrolytic, Caloric, And [place] Sig/Yung Start time Last Medication Dose Route Stop Time Status Admin Sodium Chloride 0 ASDIR PRN 01/07 1330 AC IV 01/08 1230 Patient Discharge Departure Vital Signs/ConditionVital SignsFirst Documented: Result Date Time Pulse Ox 100 01/07 1354 B/P 135/85 01/07 1354 B/P Mean 101 01/07 1354 O2 Delivery Room air 01/07 1354 Temp 36.9 01/07 1354 Pulse 88 01/07 1354 Resp 16 01/07 1354 Last Documented: Result Date Time Pulse Ox 100 01/07 1534 B/P 134/85 01/07 1534 B/P Mean 101 01/07 1534 Temp 36.9 01/07 1534 Pulse 82 01/07 1534 Resp 16 01/07 1534 O2 Delivery Room air 01/07 1354 All vital signs available at the time of this entry have been reviewed. Condition Stable Clinical ImpressionClinical ImpressionPrimary Impression: Panic attackSecondary Impressions: Disposition DecisionDischarge )( Discharged to Home Yes )( Time 1521 )( Date 01/07/21 Discharge/Care PlanCounseled Regarding Diagnosis, Lab results, Need for follow-up, When to return to EDPatient Instructions ED Panic AttackAdditional InstructionsPlease follow up with your OB within the next 2 weeks. at 1539RPT #:[id number] OF REPORTEDEmergency department ewrthp9268-34-43Z46:21:00G.[id number] -1083AVAvailable for patient yfanSVUNRCCFXQVOXW1476-92-99C78:39:47 HCACL"
--- NOTE | 2023-10-31 08:13 | EDPHYS ---
Physician Documentation [facility] Name: Renita Brooke Age: 23 yrs Sex: Female : 2000 Arrival Date: 10/31/2023 Time: 08: Bed 3 Private MD: ED Physician Lenard Patel HPI: 10/31 08:07 This 23 yrs old Female presents to ER via Unassigned with complaints of CPR. rn 08:07 Preceding the arrest, the patient was found down. The arrest occurred at home. rn Pre-hospital course: The arrest was not witnessed by others. Bystanders at the scene did not perform CPR. ACLS details: Initial rhythm was asystole. The presenting rhythm is asystole. Airway: oral intubation, Medications given by EMS prior to arrival - Epinephrine IV x 2 doses, Narcan x 3, Response to therapy: continued arrest. It is unknown whether or not the patient has had similar symptoms in the past. EMS reports patient found down by family or friends. Unknown downtime. Suspected overdose. Police gave 2 doses of Narcan and EMS gave 1 dose of Narcan without improvement. Patient intubated in the field by EMS prior to arrival. Asystole the entire time without changes. Did not get glucose prior to arrival.. Historical: - Home Meds: 08:14 Zoloft Oral [Active]; ph - PMHx: 08:14 depressive disorder; ph - Unable to obtain history due to: unresponsive. ROS: 08:07 Unable to obtain ROS due to comatose state, rn Exam: 08:07 Constitutional: This is a well developed, well nourished patient, GCS 3, intubated, rn body is cold Head/Face: Normocephalic, atraumatic. Eyes: Pupils 6 mm, nonreactive, already show linear signs of abrasion/ulceration ENT: No oral trauma noted Neck: No crepitus Cardiovascular: No spontaneous cardiac activity noted Respiratory: Bilateral breath sounds with bagging, patient intubated, no spontaneous breaths Abdomen/GI: Soft, nondistended, no signs of trauma Skin: Cold, pale skin Neuro: GCS 3 Procedures: 08:07 CPR: See CPR flow sheet. Initial patient assessment: unresponsive, intubated, pulses rn present w/ compressions, The presenting cardiac rhythm is asystole. Meds given: See Meds list. despite ED evaluation and treatment, the patient . CPR was stopped at 07:51. MDM: 08:06 Patient medically screened. rn 08:07 Differential diagnosis: cardiac arrest, respiratory arrest, overdose. Data reviewed: rn vital signs, nurses notes. ED course: No changes after multiple dose of Narcan, repeated here without change. Patient was intubated in the field without regaining spontaneous cardiac or respiratory activity. Glucose 290. Given ocular findings, cold skin, lack of response, most likely down or cardiac arrest for a while now.. 15:15 ED course: I personally spent 35 minutes engaged in work directly related to the rn individual patient's care. This does not include any time spent performing procedures. The patient has been deemed critically ill because of acute critical condition requiring CPR and ACLS protocols. Time spent with chart review and discussion with police and EMS. Time spent as well trying to contact family. Administered Medications: 07:40 Drug: NARcan (naloxone) 2 mg IVP once {Note: administered via IO.} Route: IVP; Site: ph Other; 07:42 Drug: Sodium Bicarbonate 1 amp IVP once; (50 mL); equals 50 mEq {Note: Given via IO.} ph Route: IVP; Site: Other; 07:42 Drug: EPINEPHrine 0.1mg/mL 1:10,000 1 mg IVP once {Note: given via IO.} Route: IVP; ph Site: Other; 07:45 Drug: EPINEPHrine 0.1mg/mL 1:10,000 1 mg IVP once {Note: given via IO.} Route: IVP; ph Site: Other; 07:48 Drug: EPINEPHrine 0.1mg/mL 1:10,000 1 mg IVP once {Note: given via IO.} Route: IVP; ph Site: Other; Point of Care Testing: Blood Glucose: 07:50 Blood Glucose: 293 mg/dL; ph Ranges: Critical Glucose Levels:Adult <50 mg/dl or >400 mg/dl <40 mg/dl or >180 mg/dl Disposition: 08:07 . rn 15:14 Critical Care:. rn Disposition Summary: 10/31/23 08:12 Patient Notes: Location: Desulphuring Operator rn Pronouncing Physician: Lenard Patel rn Time of : 07:51 10/31/2023 rn Diagnosis - Cardiac arrest, cause unspecified return clerk time excluding procedures: 15:14 Critical care time: Bedside Care: 35 minutes. Total time: 35 minutes rn Signatures: Lenard Patel MD MD rn Hall, Patricia, RN RN
--- NOTE | 2023-10-31 08:13 | ER ---
Nurse's Notes [facility] Name: Renita Brooke Age: 23 yrs Sex: Female : 2000 Arrival Date: 10/31/2023 Time: 08:01 Bed 3 Private MD: Diagnosis: Cardiac arrest, cause unspecified Presentation: 10/31 07:38 Chief complaint: EMS states: EMS called for unresponsive, unknown downtime, cardiac ph rhythm asystole, PD on scene administered Narcan x 2, EMS gave Narcan x 1, IO to L tibia, Epi administered x 3, rhythm remained asystole, pt intubated in the field, 7.0 ETT 21\T\ teeth, Trever device in place for compressions. Care prior to arrival: CPR via thumper performed by EMS Medication(s) given: Narcan x 3, epi x 3 IV initiated. IO L tibia Oxygen administered. via AMBU bag. Compressions began prior to arrival. 07:38 Method Of Arrival: EMS: [facility] ph 07:38 Acuity: RAE 1 ph Historical: - Home Meds: 08:14 Zoloft Oral [Active]; ph - PMHx: 08:14 depressive disorder; ph - Unable to obtain history due to: unresponsive. Screenin:15 Abuse screen:. ph Assessment: 07:38 CPR assessment: unresponsive, pupils fixed \T\ dilated, no respiratory effort, intubated, ph Ambu ventilation, pulses absent w/ compressions. Cardiac rhythm is asystole. General: Behavior is unresponsive. Neuro: Level of Consciousness is unresponsive. Cardiovascular: Capillary refill is > 3 seconds in bilateral fingers toes Rhythm is asystole. Respiratory: Airway via oral intubation Trachea midline. GI: Abdomen is distended. Derm: Skin temperature is cold. 07:40 Cardiac rhythm is asystole. ph 07:43 Cardiac rhythm is asystole. ph 07:45 Cardiac rhythm is asystole. ph 07:51 Cardiac rhythm is TOD 0751. ph 08:58 Reassessment: Contacted [facility], coordinator Johanbert Anguiano, case # [id number]. ph 09:15 Reassessment: [facility] officer a bedside. ph 10:10 Reassessment: [facility] home at bedside to collect body for transport to [place]. ph 10:18 Reassessment: while cleaning room ET tube noted to be on floor w/ balloon still ph inflated, unknown who removed tube. ED Course: 07:50 Inserted saline lock: 24 gauge in right hand, using aseptic technique. ph 08:02 Patient arrived in ED. bd 08:04 Natalee Bravo, CONSTANTINO is Primary Nurse. ph 08:06 Lenard Patel MD is Attending Physician. rn 08:12 Lenard Patel MD is Pronouncing Provider. rn 08:12 Triage completed. ph 08:27 notified [facility] to have municipal court judge come to er. bd Administered Medications: 07:40 Drug: NARcan (naloxone) 2 mg IVP once {Note: administered via IO.} Route: IVP; Site: ph Other; 07:42 Drug: Sodium Bicarbonate 1 amp IVP once; (50 mL); equals 50 mEq {Note: Given via IO.} ph Route: IVP; Site: Other; 07:42 Drug: EPINEPHrine 0.1mg/mL 1:10,000 1 mg IVP once {Note: given via IO.} Route: IVP; ph Site: Other; 07:45 Drug: EPINEPHrine 0.1mg/mL 1:10,000 1 mg IVP once {Note: given via IO.} Route: IVP; ph Site: Other; 07:48 Drug: EPINEPHrine 0.1mg/mL 1:10,000 1 mg IVP once {Note: given via IO.} Route: IVP; ph Site: Other; Point of Care Testing: Blood Glucose: 07:50 Blood Glucose: 293 mg/dL; ph Ranges: Outcome: 07:51 Outcome Patient ph 07:51 Patient : Time of 07:51 Pronounced by Lenard Patel MD ph 10:19 Patient left the ED. ph Signatures: Anjelica Harris bd Lenard Patel MD MD rn Natalee Bravo RN RN ph
== END ==
LOC: ER 08:01
DX: I46.9 Cardiac arrest, cause unspecified (principal)
CPT/HCPCS: 92950; 96374; 96375; 99285; J0171; J2310